=== PATIENT | male | born 1960 | race Caucasian/White ===

== ENCOUNTER 2020-01-06 16:31 | Inpatient (IN) | payer OTHER ==
[2020-01-06 16:50] VITALS: BMI 30.5
--- NOTE | 2020-01-06 16:54 | PDOC ---
History of Present Illness - General Chief Complaint: Altered Mental Status Stated Complaint: OVERDOSE Time Seen by Provider: 01/06/20 16:53 - History of Present Illness Initial Comments: HPI Pt is a 59yo M with PMH DM, COPD, Neuropathy (on chronic narcotics and gabapentin), CHF, hx of prior intubations, who presents with altered mental status. One hour IMPORT SPECIALIST by EMS, he was in his usual state of health according to his family. He was given 2.4mg narcan by EMS with improved arousal. Otherwise unable to obtain history given patients mental status. Review of Systems - unable to obtain Physical Exam General: arousable, well developed, well nourished Head: normocephalic, atraumatic Eyes: pupils constricted, anicteric sclera, conjunctiva clear ENT: oropharynx clear without exudates, moist mucous membranes Neck: supple, normal ROM Lung: Diffuse crackles b/l Heart: tachycardic, normal S1, S2, no murmurs appreciated Abdomen: soft, non tender, normoactive bowel sounds Extremities: no edema, no erythema or tenderness, DP/PT pulses 2+ and symmetric Neuro: moves all extremities Skin: warm, dry MDM Pt is a 59yo M with PMH DM, COPD, Neuropathy (on chronic narcotics and gabapentin), CHF, hx of prior intubations, who presents with altered mental status. Vitals significant for tachycardia and febrile. DDx including but not limited to: sepsis, acute on chronic respiratory failure, AMS secondary to medication OD Workup: labs (sepsis order set), ammonia, cxr, ekg, CT head and chest TX: Vanc/Zosyn, duoneb EKG: Afib with RVR, HR 106bpm, QRS 82ms, QTc 403ms Given patient's somnolence - given additional 2mg Narcan per attending Labs: leukocytosis (35.2), anemia, hyperkalemia, hypercapnia, trop 0.06, ammonia 50 (previous 60) Pt placed on BiPAP due to hypercapnia UA: -LE, -nitrite; no proteinuria, glucosuria pending head and chest CT pending abg, utox, salicylate/tylenol levels pending admission for sepsis, acute respiratory failure, AMS patient signed out to night team Past History - Medical History Allergies/Adverse Reactions: Allergies Allergy/AdvReac Type Severity Reaction Status Date / Time No Known Allergies Allergy Verified 01/06/20 16:47 Home Medications: Ambulatory Orders Morphine Sulfate [Morphine Sulfate ER] 30 mg PO BID 09/12/19 oxyCODONE HCL [Oxycodone HCl] 30 mg PO QID 09/12/19 Pregabalin 225 mg PO TID 01/07/20 COPD: Yes CHF: Yes HTN: Yes - Psycho-Social/Smoking History Smoking History: Unknown if ever smoked Have you smoked in the past 12 months: No If you are a former smoker, when did you quit?: was offered help last admission; refused *Physical Exam - Vital Signs Last Vital Signs Temp Pulse Resp BP Pulse Ox 103 H 38 H 120/76 99 01/06/20 16:47 01/06/20 16:47 01/06/20 16:47 01/06/20 16:47 ED Treatment Course - LABORATORY CBC & Chemistry Diagram: 01/07/20 06:05 01/07/20 06:05 Discharge - Discharge Information Problems reviewed: Yes Clinical Impression/Diagnosis: Altered mental status Qualifiers: Altered mental status type: unspecified Qualified Code(s): R41.82 - Altered mental status, unspecified Overdose Qualifiers: Encounter type: subsequent encounter Injury intent: undetermined intent Qualified Code(s): T50.904D - Poisoning by unspecified drugs, medicaments and biological substances, undetermined, subsequent encounter Respiratory failure Qualifiers: Chronicity: acute Respiratory failure complication: hypercapnia Qualified Code(s): J96.02 - Acute respiratory failure with hypercapnia - Follow up/Referral - Patient Discharge Instructions - Post Discharge Activity
[2020-01-06] MEDS ORDERED: PIPERACILLIN/TAZOB 3.375 GM 3.375 GM in DEXTROSE 5%-WATER - 50 ML IVPB ONE (16:58)
[2020-01-06] MEDS ORDERED: VANCOMYCIN 1 GM in D5W (PRE-DOCKED) 1,000 MG/250 ML IVPB ONE (17:12)
[2020-01-06] MEDS ORDERED: PIPERACILLIN/TAZOB 3.375 GM 3.375 GM/50 ML BAG IVPB ONE (17:23)
[2020-01-06] MEDS ORDERED: VANCOMYCIN 1 GRAM (PRE-DOCKED) 1,000 MG/250 ML BAG IVPB ONE (17:23)
[2020-01-06 17:28] LABS: BASO % 0.1 % (0-2.0); HEMATOCRIT 37.4 % (35.4-49); LYMPH % 3.5 % (8-40); MCH 22.6 pg (25.7-33.7); MCHC 29.5 g/dl (32.0-35.9); MEAN CELL VOLUME 76.8 fl (80-96); MEAN PLT VOLUME 7.8 fl (7.5-11.1); MONO % 6.3 % (3.8-10.2); NEUT % 90.1 % (42.8-82.8); PLATELET COUNT 243 K/MM3 (134-434); RBC 4.87 M/mm3 (4.00-5.60); RDW 19.8 % (11.9-15.9)
[2020-01-06 17:35] LABS: WHITE BLOOD COUNT 35.2 K/mm3 (4.0-10.0)
[2020-01-06 17:40] LABS: INR 1.1 (0.83-1.09)
[2020-01-06 17:41] LABS: VENOUS BASE EXCESS 11.7 mmol/L (-2-2); VENOUS O2 SATURATION 79.4 % (70-80); VENOUS PH 7.312 (7.310-7.410)
[2020-01-06 17:42] LABS: ACTIVATED PTT 28.6 SECONDS (25.2-36.5)
[2020-01-06 17:44] LABS: VENOUS PCO2 83.6 mmHg (38-52)
[2020-01-06] MEDS ORDERED: NALOXONE HCL 0.4 MG/ML VIAL ONE ×3 (17:51→18:02)
[2020-01-06] MEDS ORDERED: NALOXONE HCL 0.4 MG/ML VIAL IVPUSH ONE ×2 (17:56→18:04)
[2020-01-06 18:06] LABS: ALBUMIN 2.4 g/dl (3.4-5.0); BILIRUBIN,TOTAL 0.4 mg/dL (0.2-1); BLOOD UREA NITROGEN 17.8 mg/dL (7-18); CALCIUM 8.3 mg/dL (8.5-10.1); CREATININE 0.8 mg/dL (0.55-1.3); POTASSIUM 5.3 mmol/L (3.5-5.1); TOT PROT 6.2 g/dl (6.4-8.2)
[2020-01-06 18:20] LABS: ANISOCYTOSIS 3+; MACROCYTOSIS 0; PLATELET ESTIMATE NORMAL; TARGET CELLS 1+
[2020-01-06 18:57] LABS: URINE APPEARANCE CLEAR; URINE BILIRUBIN NEGATIVE (NEGATIVE); URINE COLOR YELLOW; URINE GLUCOSE (UA) NEGATIVE (NEGATIVE); URINE KETONE NEGATIVE (NEGATIVE); URINE LEUK ESTERASE NEGATIVE (NEGATIVE); URINE NITRITE NEGATIVE (NEGATIVE); URINE PROTEIN NEGATIVE (NEGATIVE)
[2020-01-06] MEDS ORDERED: ALBUTEROL SO4 2.5/IPRATROPIUM 0.5 INH SOL 3 ML VIAL.NEB. NEB ONE ×3 (19:18→20:57)
[2020-01-06] MEDS: ALBUTEROL SO4 2.5/IPRATROPIUM 0.5 INH SOL 3 ML VIAL.NEB. NEB SCH ×2 (19:46→21:00)
--- NOTE | 2020-01-06 19:50 | PN ---
Teaching Attending Note Name of Resident: Vanessa Jones ATTENDING PHYSICIAN STATEMENT I saw and evaluated the patient. I reviewed the resident's note and discussed the case with the resident. I agree with the resident's findings and plan as documented. SUBJECTIVE: Patient is a 59 year old man with a PMH of NIDDM, HLD, BPH, Anxiety, Tobacco use, COPD (on 2-4L O2 at home), Chronic pain due to neuropathy (on chronic narcotics and Gabapentin), CHF, and Prior intubations who presents with altered mental status. One hour prior to arrival by EMS, he was in his usual state of health according to his family. Found altered in bed by EMS with pin point pupils. Given 4.2 Narcan by EMS with awakening of patient. Otherwise unable to obtain history given patients mental status. On arrival in the ER respirations were shallow but unlabored. Patient was arousable to noxious stimuli with no signs of trauma. He was place on BiPAP. No reported history of chest pain, abdominal pain, fever, chills, vomiting, diarrhea, dysuria, melena, hematochezia or hematuria. No reported history of alcohol use. No reported sick contacts or recent travels. Family history is unremarkable. OBJECTIVE: Somnolent but arousable Vital Signs Period Temp Pulse Resp BP Sys/Nichols Pulse Ox Last 24 Hr 100.7 F-100.7 F 84-110 20-38 112-153/61-95 99-100 HEENT: No Jaundice, eye redness or discharge, PERRLA, EOMI. Normocephalic, atraumatic. External ears are normal and hearing is grossly intact. No nasal discharge. Neck: Supple, nontender. No palpable adenopathy or thyromegaly. No JVD Chest: Good effort. Clear to auscultation and percussion. Heart: Regular. No S3, rub or murmur Abdomen: Not distended, soft, nontender and no HSM. No rebound or guarding. Normal bowel sounds. Ext: Peripheral pulses intact. No leg edema. Skin: Warm and dry. No petechiae, rash or ecchymosis. Neuro: Somnolent but readily arousable. Oriented to person and place. CN 2-12 grossly intact. Sensation grossly intact in all four extremities and DTR are symmetric. Psych: Appropriate mood and affect. Good insight. Home Medications Medication Instructions Recorded Morphine Sulfate [Morphine Sulfate 30 mg PO BID 09/12/19 ER] oxyCODONE HCL [Oxycodone HCl] 30 mg PO QID 09/12/19 Amoxicillin/Potassium Clav 1 each PO BID #9 tablet 09/30/19 [Augmentin 875-125 Tablet] Tamsulosin HCl [Flomax] 0.4 mg PO DAILY #30 cap.er.24h 09/30/19 Abnormal Lab Results 01/06/20 01/06/20 01/06/20 16:40 16:40 16:40 WBC 35.2 H* Hgb 11.0 L MCV 76.8 L MCH 22.6 L MCHC 29.5 L RDW 19.8 H Absolute Neuts (auto) 31.7 H Neutrophils % 90.1 H Neutrophils % (Manual) 89.2 H Lymphocytes % 3.5 L D Lymphocytes % (Manual) 4.9 L D INR 1.10 H POC VBG pCO2 POC VBG pO2 VBG HCO3 VBG Base Excess Potassium 5.3 H Chloride 95 L Carbon Dioxide 38 H Anion Gap 3 L Random Glucose 125 H Calcium 8.3 L ALT 11 L Ammonia Troponin I 0.06 H Total Protein 6.2 L Albumin 2.4 L Salicylates Opiates Screen U Marijuana (THC) Screen 01/06/20 01/06/20 01/06/20 17:03 17:03 18:58 WBC Hgb MCV MCH MCHC RDW Absolute Neuts (auto) Neutrophils % Neutrophils % (Manual) Lymphocytes % Lymphocytes % (Manual) INR POC VBG pCO2 83.6 H* POC VBG pO2 49.6 H VBG HCO3 41.3 H VBG Base Excess 11.7 H Potassium Chloride Carbon Dioxide Anion Gap Random Glucose Calcium ALT Ammonia 50.10 H Troponin I Total Protein Albumin Salicylates 1.9 L Opiates Screen U Marijuana (THC) Screen 01/06/20 19:39 WBC Hgb MCV MCH MCHC RDW Absolute Neuts (auto) Neutrophils % Neutrophils % (Manual) Lymphocytes % Lymphocytes % (Manual) INR POC VBG pCO2 POC VBG pO2 VBG HCO3 VBG Base Excess Potassium Chloride Carbon Dioxide Anion Gap Random Glucose Calcium ALT Ammonia Troponin I Total Protein Albumin Salicylates Opiates Screen Positive A* U Marijuana (THC) Screen Positive A* Current Medications Generic Name Dose Route Start Last Admin Trade Name Freq PRN Reason Stop Dose Admin Enoxaparin Sodium 40 mg 01/07/20 10:00 Lovenox - SQ DAILY FLAKITA Piperacillin Sod/Tazobactam 50 mls @ 100 mls/hr 01/06/20 23:00 01/07/20 00:37 Sod 3.375 gm/ Dextrose IVPB 100 mls/hr Q6H FLAKITA Administration Protocol Vancomycin HCl 1,000 mg 01/07/20 18:00 Vancomycin (Pre-Docked) IVPB DAILY FLAKITA Protocol ASSESSMENT AND PLAN: 1. AMS due to Opiate overdose/Sepsis due to pneumonia/Acute hypercapnic respiratory failure - Urine toxicology shows opiates and marijuana. He was also admitted twice in September this year for ?"accidental opiate overdose". CXR shows bilateral interstitial and airspace opacities/pneumonic infiltrates. Offical report of chest CT and head CT scan pending. Sepsis workup done and patient on BiPAP being treated with IV Vancomycin, IV Zosyn, Duoneb and Narcan. Will monitor on telemetry, consult ID and Pulmonary. EKG shows Afib at 106/minute, IRBBB and QTc [address]-T wave changes. Initial troponin is 0.06 - likely due to demand ischemia. Will trend troponin and repeat EKG to rule out ACS. No prior EKG showing Afib. Mild hyperkalemia may be due to leukocytosis - will repeat BMP. Has chronic NH3 elevation - will monitor for now and treat if indicated. Viral testing for COVID-19 ordered and patient placed on airborne, droplet and contact isolation. Will continue comprehensive care for all of patients comorbid conditions. 2. Hypoalbuminemia - Possibly due to combined effects of malnutrition and inflammation associated with comorbid conditions. Will ensure adequate dietary protein intake and also consult rewards consultant. 3. DM For now, we will hold the home diabetes drugs and implement sliding scale insulin regimen. Provide comprehensive diabetes care with patient teaching and counseling about the importance of adherence to prescribed diabetes regimen, euglycemia, eye care and foot care. 4. Tobacco Use Counseled on risks associated with tobacco use. We will provide patient all the necessary assistance to facilitate smoking cessation and prescribe Nicotine patch. 5. DVT prophylaxis - Lovenox 40 mg SQ q 24 hours. 6. Advance directives - Full code
[2020-01-06 20:13] LABS: COCAINE, UR NEGATIVE ng/ml (CUTOFF=300); PHENCYCLIDINE,URINE NEGATIVE ng/ml (CUTOFF=25); URINE AMPHETAMINES NEGATIVE ng/ml (CUTOFF=500); URINE BARBITURATES NEGATIVE ng/ml (CUTOFF=200); URINE BENZODIAZEPINES NEGATIVE ng/ml (CUTOFF=200)
[2020-01-06 20:25] LABS: METHADONE, UR NEGATIVE ng/ml (CUTOFF=300)
[2020-01-06 20:27] LABS: OPIATES, URI POSITIVE ng/ml (CUTOFF=300)
--- NOTE | 2020-01-06 21:33 | HP ---
CHIEF COMPLAINT: AMS PCP: Dr. Kearney (affiliated with [facility]) HISTORY OF PRESENT ILLNESS: 59y.o. M PMH DM, COPD on 4L home O2, CHF (grade II diastolic dysfunction, EF55%), polysubstance abuse (opioids, oxy, MJ, cocaine), recent admission 09/2019 for opioid overdose where he was intubated with ICU stay, presenting with altered mental status. No history was able to be obtained from the patient. As per EMS patient was found by his family. En route received 2.4mg narcan with mildly improved responsiveness. In ED patient received 2 x doses narcan IV (0.8mg, 1,2 mg). Unable to obtain further history due to patient somnolence, however, patient is arousable to noxious stimuli. ER course was notable for: (1) Narcan x 2 (2) vanc, zosyn (3) U-tox + opiates, marijuana (4) EKG: A-fib w/ RVR rat 106bpm. No ST-T changes. qtc 403 Recent Travel: unable to obtain PAST MEDICAL HISTORY: as per hpi PAST SURGICAL HISTORY: Social History: Smoking: + marijuana Alcohol: unknown Drugs: opioids Allergies No Known Allergies Allergy (Verified 01/06/20 16:47) HOME MEDICATIONS: Home Medications Medication Instructions Recorded Morphine Sulfate [Morphine Sulfate 30 mg PO BID 09/12/19 ER] oxyCODONE HCL [Oxycodone HCl] 30 mg PO QID 09/12/19 Amoxicillin/Potassium Clav 1 each PO BID #9 tablet 09/30/19 [Augmentin 875-125 Tablet] Tamsulosin HCl [Flomax] 0.4 mg PO DAILY #30 cap.er.24h 09/30/19 REVIEW OF SYSTEMS unable to assess PHYSICAL EXAMINATION Vital Signs - 24 hr 01/06/20 01/06/20 01/06/20 16:47 16:56 17:01 Temperature 100.7 F H 100.7 F H 100.7 F H Pulse Rate 103 H 109 H Pulse Rate [ 110 H Radial] Respiratory 26 H 25 H 26 H Rate Blood Pressure 120/76 Blood Pressure 120/95 [Left Arm] O2 Sat by Pulse 100 100 99 Oximetry (%) 01/06/20 01/06/20 01/06/20 18:09 18:10 20:07 Temperature Pulse Rate Pulse Rate [ 98 H 84 Radial] Respiratory 20 20 Rate Blood Pressure Blood Pressure 153/78 112/61 [Left Arm] O2 Sat by Pulse 100 100 100 Oximetry (%) GENERAL: Arousable to noxious stimuli. HEENT: Pupils pinpoint LUNGS: Breath sounds equal, clear to auscultation bilaterally. No wheezes, and no crackles. No accessory muscle use. HEART: Regular rate and rhythm, normal S1 and S2 without murmurs ABDOMEN: Soft, nontender, not distended, normoactive bowel sounds EXTREMITIES: No peripheral edema. NEUROLOGICAL: unable to assess PSYCHIATRIC: unable to assess SKIN: Track fonseca/ excoriations L hand and arm. Laboratory Results - last 24 hr 01/06/20 01/06/20 01/06/20 16:40 16:40 16:40 WBC 35.2 H* RBC 4.87 Hgb 11.0 L Hct 37.4 MCV 76.8 L MCH 22.6 L MCHC 29.5 L RDW 19.8 H Plt Count 243 MPV 7.8 Absolute Neuts (auto) 31.7 H Neutrophils % 90.1 H Neutrophils % (Manual) 89.2 H Band Neutrophils % 1.0 Lymphocytes % 3.5 L D Lymphocytes % (Manual) 4.9 L D Monocytes % 6.3 D Monocytes % (Manual) 4 Eosinophils % 0.0 D Eosinophils % (Manual) 0.0 Basophils % 0.1 Basophils % (Manual) 0.0 Myelocytes % (Man) 0 D Promyelocytes % (Man) 0 Blast Cells % (Manual) 0 Nucleated RBC % 0 Metamyelocytes 0 Hypochromia 1+ Platelet Estimate Normal Polychromasia 1+ Poikilocytosis 2+ Anisocytosis 3+ Microcytosis 3+ Macrocytosis 0 Target Cells 1+ PT with INR 13.00 INR 1.10 H PTT (Actin FS) 28.6 VBG pH POC VBG pCO2 POC VBG pO2 VBG HCO3 VBG O2 Sat (Mirta) VBG Base Excess Sodium 137 Potassium 5.3 H Chloride 95 L Carbon Dioxide 38 H Anion Gap 3 L BUN 17.8 Creatinine 0.8 Est GFR (CKD-EPI)AfAm 111.74 Est GFR (CKD-EPI)NonAf 96.41 Random Glucose 125 H Lactic Acid Calcium 8.3 L Total Bilirubin 0.4 AST 23 ALT 11 L Alkaline Phosphatase 60 Ammonia Troponin I 0.06 H Total Protein 6.2 L Albumin 2.4 L Urine Color Urine Appearance Urine pH Ur Specific [place] Urine Protein Urine Glucose (UA) Urine Ketones Urine Blood Urine Nitrite Urine Bilirubin Urine Urobilinogen Ur Leukocyte Esterase Salicylates Opiates Screen Methadone Screen Acetaminophen Barbiturate Screen Phencyclidine Screen Ur Amphetamines Screen MDMA (Ecstasy) Screen Benzodiazepines Screen Cocaine Screen U Marijuana (THC) Screen 01/06/20 01/06/20 01/06/20 16:40 17:03 17:03 WBC RBC Hgb Hct MCV MCH MCHC RDW Plt Count MPV Absolute Neuts (auto) Neutrophils % Neutrophils % (Manual) Band Neutrophils % Lymphocytes % Lymphocytes % (Manual) Monocytes % Monocytes % (Manual) Eosinophils % Eosinophils % (Manual) Basophils % Basophils % (Manual) Myelocytes % (Man) Promyelocytes % (Man) Blast Cells % (Manual) Nucleated RBC % Metamyelocytes Hypochromia Platelet Estimate Polychromasia Poikilocytosis Anisocytosis Microcytosis Macrocytosis Target Cells PT with INR INR PTT (Actin FS) VBG pH 7.312 POC VBG pCO2 83.6 H* POC VBG pO2 49.6 H VBG HCO3 41.3 H VBG O2 Sat (Mirta) 79.4 VBG Base Excess 11.7 H Sodium Potassium Chloride Carbon Dioxide Anion Gap BUN Creatinine Est GFR (CKD-EPI)AfAm Est GFR (CKD-EPI)NonAf Random Glucose Lactic Acid 1.3 Calcium Total Bilirubin AST ALT Alkaline Phosphatase Ammonia 50.10 H Troponin I Total Protein Albumin Urine Color Urine Appearance Urine pH Ur Specific [place] Urine Protein Urine Glucose (UA) Urine Ketones Urine Blood Urine Nitrite Urine Bilirubin Urine Urobilinogen Ur Leukocyte Esterase Salicylates Opiates Screen Methadone Screen Acetaminophen Barbiturate Screen Phencyclidine Screen Ur Amphetamines Screen MDMA (Ecstasy) Screen Benzodiazepines Screen Cocaine Screen U Marijuana (THC) Screen 01/06/20 01/06/20 01/06/20 18:30 18:58 19:39 WBC RBC Hgb Hct MCV MCH MCHC RDW Plt Count MPV Absolute Neuts (auto) Neutrophils % Neutrophils % (Manual) Band Neutrophils % Lymphocytes % Lymphocytes % (Manual) Monocytes % Monocytes % (Manual) Eosinophils % Eosinophils % (Manual) Basophils % Basophils % (Manual) Myelocytes % (Man) Promyelocytes % (Man) Blast Cells % (Manual) Nucleated RBC % Metamyelocytes Hypochromia Platelet Estimate Polychromasia Poikilocytosis Anisocytosis Microcytosis Macrocytosis Target Cells PT with INR INR PTT (Actin FS) VBG pH POC VBG pCO2 POC VBG pO2 VBG HCO3 VBG O2 Sat (Mirta) VBG Base Excess Sodium Potassium Chloride Carbon Dioxide Anion Gap BUN Creatinine Est GFR (CKD-EPI)AfAm Est GFR (CKD-EPI)NonAf Random Glucose Lactic Acid Calcium Total Bilirubin AST ALT Alkaline Phosphatase Ammonia Troponin I Total Protein Albumin Urine Color Yellow Urine Appearance Clear Urine pH 7.0 D Ur Specific [place] 1.012 Urine Protein Negative Urine Glucose (UA) Negative Urine Ketones Negative Urine Blood Negative Urine Nitrite Negative Urine Bilirubin Negative Urine Urobilinogen 1.0 Ur Leukocyte Esterase Negative Salicylates 1.9 L Opiates Screen Positive A* Methadone Screen Negative Acetaminophen < 2.0 Barbiturate Screen Negative Phencyclidine Screen Negative Ur Amphetamines Screen Negative MDMA (Ecstasy) Screen Negative Benzodiazepines Screen Negative Cocaine Screen Negative U Marijuana (THC) Screen Positive A* ASSESSMENT/PLAN: 59y.o. M PMH DM, COPD on 4L home O2, CHF (grade II diastolic dysfunction, EF55%), polysubstance abuse (opioids, oxy, MJ, cocaine) presenting with altered mental status. #AMS 2/2 Opioid overdose #Acute hypercapnic resp failure -Utox + for opiates -improved s/p narcan; continue narcan PRN -continue neuro checks -O2 supplementation; NIPPV BIPAP; vbg done in ED showing hypercapnia -monitor EKG; no hx of a-fib but seen on 1st EKG, f/u 2nd -trop 0.06, repeat downtrended 0.05 #Leukocytosis -f/u COVID-19 PCR -s/p- vanc & zosyn administered in ED; continue -f/u AM CBC -f/u blood & urine cultures -CT chest showing no infiltrative or congestive changes. (although + lymphadenopathy) #DM -hold home oral meds -ISS, BGMs ACHS #Diastolic CHF -echo done 09/2019 -f/u with outpatient cardiology on discharge -seen by cardio during visit 09/2019, recommended stress MIBI @ that time #FEN -no standing fluids -trend & replete lytes as needed -NPO while on BIPAP; then Na controlled, diabetic diet #Dispo admit to telemetry Family Medical History Family History: Unable to Obtain Visit type - Emergency Visit Emergency Visit: Yes ED Registration Date: 01/06/20 Care time: The patient presented to the Emergency Department on the above date and was hospitalized for further evaluation of their emergent condition. - New Patient This patient is new to me today: Yes Date on this admission: 01/08/20 - Critical Care Critical Care patient: No ATTENDING PHYSICIAN STATEMENT I saw and evaluated the patient. I reviewed the resident's note and discussed the case with the resident. I agree with the resident's findings and plan as documented. SUBJECTIVE: OBJECTIVE: ASSESSMENT AND PLAN:
--- NOTE | 2020-01-06 23:25 | PDOC ---
Documentation entered by Raya Conn SCRIBE, acting as scribe for Claus Ghotra DO. Claus Ghotra DO: This documentation has been prepared by the Fabien fragoso Brenda, SCRIBE, under my direction and personally reviewed by me in its entirety. I confirm that the documentation accurately reflects all work, treatment, procedures, and medical decision making performed by me. Attending Attestation - Resident Resident Name: Mary Ann Lehman - ED Attending Attestation I have performed the following: I have examined & evaluated the patient, The case was reviewed & discussed with the resident, I agree w/resident's findings & plan, Exceptions are as noted - HPI HPI: 01/06/20 17:15 The patient is a 59 year old male with a significant PMH of COPD (2-4 L), CHF, chronic pain who presents to the emergency department for evaluation of altered mental status. Found altered in bed by EMS with pin point pupils. Given 2mg narcan by EMS with awakening of patient. No falls or trauma. History is limited as he is hypersomulent. Has had similar narcotic od in past and has been intubated. Allergies: NKA PCP: Christel 01/15/20 17:26 - Physicial Exam PE: 01/06/20 18:37 Respirations are shallow but unlabored. Pt is arousable to noxious stimuli. No signs of gross trauma, making purposeful movements, able to scratch own genitalia. Appears comfortable given shallow breaths. - Critical Care Time Total Critical Care Time: 35 Critical Care Statement: The care of this patient involved high complexity decision making to prevent further life threatening deterioration of the patient's condition and/or to evaluate & treat vital organ system(s) failure or risk of failure. - Medical Decision Making 01/06/20 18:37 59 year old male with chronic respiratory failure here today for AMS likely secondary to unintentional narcotic overdose. Plan is to test for Tylenol and salicylate levels. Frequent reassessment due to respiratory failure. High risk intubation. Initial BVG shows respiratory acidosis with PcO2 of 83. Close to baseline for chronic respiratory failure. Additional Narcan as needed. Labs, CT Head. Will trial on Bipap to see if AMS improves. Treat for COPD. Likely admission. Pt improved with BIPAP and intermittent Narcan, at baseline mental status, repeat vbg shows improved pco2 on bipap. Likely pt w/ chronic resp failure with acute exacerbation 2/2 opiate od and hypercapnic resp failure. Admitted to [facility] on bipap. Guarded condition 01/15/20 17:27 Heart Score/ECG Review - ECG Impressions Comment:: 01/06/20 18:37 Atrial fibriliation Vent rate 106 Normal axis Normal intervals No acute ischemia Incomplete right bundle pattern Time: 1846 Discharge - Discharge Information Problems reviewed: Yes Clinical Impression/Diagnosis: Altered mental status Qualifiers: Altered mental status type: unspecified Qualified Code(s): R41.82 - Altered mental status, unspecified Overdose Qualifiers: Encounter type: subsequent encounter Injury intent: undetermined intent Qualified Code(s): T50.904D - Poisoning by unspecified drugs, medicaments and biological substances, undetermined, subsequent encounter Respiratory failure Qualifiers: Chronicity: acute Respiratory failure complication: hypercapnia Qualified Code(s): J96.02 - Acute respiratory failure with hypercapnia Condition: Stable Disposition: AGAINST MEDICAL ADVICE - Follow up/Referral - Patient Discharge Instructions - Post Discharge Activity
[2020-01-07] MEDS ORDERED: DEXTROSE 5%-WATER - 50 ML IVPB ONE ×5 (00:32→22:21)
[2020-01-07] MEDS ORDERED: PIPERACILLIN/TAZOBACTAM 3.375 GM VIAL IVPB ONE ×5 (00:32→22:21)
[2020-01-07] MEDS: PIPERACILLIN/TAZOB 3.375 GM 3.375 GM in DEXTROSE 5%-WATER - 50 ML IVPB SCH ×5 (00:37→23:00)
[2020-01-07 06:17] LABS: ARTERIAL BLD GAS O2 SATURATION 99.3 mmHg (95-98); ARTERIAL BLOOD GAS BASE EXCESS 10.2 mmol/L (-2-2); ARTERIAL BLOOD GAS PO2 220.2 mmHg (80-100); ARTERIAL BLOOD GAS pH 7.289 (7.350-7.450)
[2020-01-07 06:47] LABS: ALLENS TEST POSITIVE
[2020-01-07 06:48] LABS: VENT RATE 16
[2020-01-07 08:19] LABS: BASO % 0.1 % (0-2.0); HEMATOCRIT 35.1 % (35.4-49); HEMOGLOBIN 10.4 GM/dL (11.7-16.9); LYMPH % 7.4 % (8-40); MCH 23.1 pg (25.7-33.7); MCHC 29.6 g/dl (32.0-35.9); MEAN CELL VOLUME 77.9 fl (80-96); MEAN PLT VOLUME 8.1 fl (7.5-11.1); MONO % 7.8 % (3.8-10.2); NEUT % 84.7 % (42.8-82.8); PLATELET COUNT 217 K/MM3 (134-434); RBC 4.51 M/mm3 (4.00-5.60); RDW 19.1 % (11.9-15.9); WHITE BLOOD COUNT 20.4 K/mm3 (4.0-10.0)
[2020-01-07 08:29] LABS: ALBUMIN 2.1 g/dl (3.4-5.0); BILIRUBIN,TOTAL 0.4 mg/dL (0.2-1); BLOOD UREA NITROGEN 19.4 mg/dL (7-18); CALCIUM 8.4 mg/dL (8.5-10.1); CREATININE 0.6 mg/dL (0.55-1.3); MAGNESIUM 2.1 mg/dL (1.8-2.4); PHOSPHOROUS 4.2 mg/dL (2.5-4.9); POTASSIUM 4.6 mmol/L (3.5-5.1); TOT PROT 5.6 g/dl (6.4-8.2)
[2020-01-07] MEDS ORDERED: NALOXONE HCL 0.4 MG/ML VIAL IVPUSH ONE (09:00)
[2020-01-07 10:03] LABS: ANISOCYTOSIS 1+; MACROCYTOSIS 0; PLATELET ESTIMATE NORMAL
[2020-01-07] MEDS: ENOXAPARIN NA (PORCINE) 40 MG/0.4 ML DISP.SYRIN SQ SCH (10:18)
--- NOTE | 2020-01-07 10:19 | EKG ---
Test Reason : Blood Pressure : / mmHG Vent. Rate : 106 BPM Atrial Rate : 110 BPM P-R Int : 000 ms QRS Dur : 082 ms QT Int : 304 ms P-R-T Axes : 000 085 020 degrees QTc Int : 403 ms POOR DATA QUALITY, INTERPRETATION MAY BE ADVERSELY AFFECTED ATRIAL FIBRILLATION WITH RAPID VENTRICULAR RESPONSE SEPTAL INFARCT (CITED ON OR BEFORE 22-SEP-2019) ABNORMAL ECG WHEN COMPARED WITH ECG OF 22-SEP-2019 18:08, ATRIAL FIBRILLATION HAS REPLACED SINUS RHYTHM VENT. RATE HAS INCREASED BY 40 BPM INCOMPLETE RIGHT BUNDLE BRANCH BLOCK IS NO LONGER PRESENT Confirmed by XAVI FRIEND MD ([id number]) on 01/07/2020 10:19:08 AM Referred By: Confirmed By:XAVI FRIEND MD
--- NOTE | 2020-01-07 12:58 | PN ---
Physical Exam: SUBJECTIVE: Patient seen and examined at bedside, admitted for acute hypercapneic respiratory failure 2/2 Percocet OD, received Narcan w/ improvement of respiratory status, ABG showing severe hypercapnea but patient compensating, will cont. to monitor. Patient however seems to be refusing inpatient care insistent on going home, possibly will leave AMA. OBJECTIVE: GA AAox3, speaking in full sentences, Calm, no increase WOB HEENT NC/AT, EOMI, neck supple, dry MM, NC O2 4L attached (saturating 92%) Chest distant BS b/l, expiratory wheezing++, no accessory M use CVS s1, S2+, RRR Abd obese, Soft, NT, ND Ext minimal edema LE b/l, no calf tenderness Laboratory Results - last 24 hr 01/06/20 01/06/20 01/06/20 16:40 16:40 16:40 WBC 35.2 H* RBC 4.87 Hgb 11.0 L Hct 37.4 MCV 76.8 L MCH 22.6 L MCHC 29.5 L RDW 19.8 H Plt Count 243 MPV 7.8 Absolute Neuts (auto) 31.7 H Neutrophils % 90.1 H Neutrophils % (Manual) 89.2 H Band Neutrophils % 1.0 Lymphocytes % 3.5 L D Lymphocytes % (Manual) 4.9 L D Monocytes % 6.3 D Monocytes % (Manual) 4 Eosinophils % 0.0 D Eosinophils % (Manual) 0.0 Basophils % 0.1 Basophils % (Manual) 0.0 Myelocytes % (Man) 0 D Promyelocytes % (Man) 0 Blast Cells % (Manual) 0 Nucleated RBC % 0 Metamyelocytes 0 Hypochromia 1+ Platelet Estimate Normal Polychromasia 1+ Poikilocytosis 2+ Anisocytosis 3+ Microcytosis 3+ Macrocytosis 0 Target Cells 1+ PT with INR 13.00 INR 1.10 H PTT (Actin FS) 28.6 Anticoagulation Therapy Puncture Site Patient Temperature ABG pH ABG pCO2 ABG pO2 ABG HCO3 ABG O2 Sat (Measured) ABG O2 Content ABG Base Excess Emmanuel Test VBG pH POC VBG pCO2 POC VBG pO2 VBG HCO3 VBG O2 Sat (Mirta) VBG Base Excess Patient On Oxygen O2 Delivery Device Oxygen Flow Rate Vent Mode Vent Rate Mechanical Rate PEEP Pressure Support Vent Sodium 137 Potassium 5.3 H Chloride 95 L Carbon Dioxide 38 H Anion Gap 3 L BUN 17.8 Creatinine 0.8 Est GFR (CKD-EPI)AfAm 111.74 Est GFR (CKD-EPI)NonAf 96.41 Random Glucose 125 H Lactic Acid Calcium 8.3 L Phosphorus Magnesium Total Bilirubin 0.4 AST 23 ALT 11 L Alkaline Phosphatase 60 Ammonia Troponin I 0.06 H Total Protein 6.2 L Albumin 2.4 L Urine Color Urine Appearance Urine pH Ur Specific [place] Urine Protein Urine Glucose (UA) Urine Ketones Urine Blood Urine Nitrite Urine Bilirubin Urine Urobilinogen Ur Leukocyte Esterase Salicylates Opiates Screen Methadone Screen Acetaminophen Barbiturate Screen Phencyclidine Screen Ur Amphetamines Screen MDMA (Ecstasy) Screen Benzodiazepines Screen Cocaine Screen U Marijuana (THC) Screen 01/06/20 01/06/20 01/06/20 16:40 17:03 17:03 WBC RBC Hgb Hct MCV MCH MCHC RDW Plt Count MPV Absolute Neuts (auto) Neutrophils % Neutrophils % (Manual) Band Neutrophils % Lymphocytes % Lymphocytes % (Manual) Monocytes % Monocytes % (Manual) Eosinophils % Eosinophils % (Manual) Basophils % Basophils % (Manual) Myelocytes % (Man) Promyelocytes % (Man) Blast Cells % (Manual) Nucleated RBC % Metamyelocytes Hypochromia Platelet Estimate Polychromasia Poikilocytosis Anisocytosis Microcytosis Macrocytosis Target Cells PT with INR INR PTT (Actin FS) Anticoagulation Therapy Puncture Site Patient Temperature ABG pH ABG pCO2 ABG pO2 ABG HCO3 ABG O2 Sat (Measured) ABG O2 Content ABG Base Excess Emmanuel Test VBG pH 7.312 POC VBG pCO2 83.6 H* POC VBG pO2 49.6 H VBG HCO3 41.3 H VBG O2 Sat (Mirta) 79.4 VBG Base Excess 11.7 H Patient On Oxygen O2 Delivery Device Oxygen Flow Rate Vent Mode Vent Rate Mechanical Rate PEEP Pressure Support Vent Sodium Potassium Chloride Carbon Dioxide Anion Gap BUN Creatinine Est GFR (CKD-EPI)AfAm Est GFR (CKD-EPI)NonAf Random Glucose Lactic Acid 1.3 Calcium Phosphorus Magnesium Total Bilirubin AST ALT Alkaline Phosphatase Ammonia 50.10 H Troponin I Total Protein Albumin Urine Color Urine Appearance Urine pH Ur Specific [place] Urine Protein Urine Glucose (UA) Urine Ketones Urine Blood Urine Nitrite Urine Bilirubin Urine Urobilinogen Ur Leukocyte Esterase Salicylates Opiates Screen Methadone Screen Acetaminophen Barbiturate Screen Phencyclidine Screen Ur Amphetamines Screen MDMA (Ecstasy) Screen Benzodiazepines Screen Cocaine Screen U Marijuana (THC) Screen 01/06/20 01/06/20 01/06/20 18:30 18:58 19:39 WBC RBC Hgb Hct MCV MCH MCHC RDW Plt Count MPV Absolute Neuts (auto) Neutrophils % Neutrophils % (Manual) Band Neutrophils % Lymphocytes % Lymphocytes % (Manual) Monocytes % Monocytes % (Manual) Eosinophils % Eosinophils % (Manual) Basophils % Basophils % (Manual) Myelocytes % (Man) Promyelocytes % (Man) Blast Cells % (Manual) Nucleated RBC % Metamyelocytes Hypochromia Platelet Estimate Polychromasia Poikilocytosis Anisocytosis Microcytosis Macrocytosis Target Cells PT with INR INR PTT (Actin FS) Anticoagulation Therapy Puncture Site Patient Temperature ABG pH ABG pCO2 ABG pO2 ABG HCO3 ABG O2 Sat (Measured) ABG O2 Content ABG Base Excess Emmanuel Test VBG pH POC VBG pCO2 POC VBG pO2 VBG HCO3 VBG O2 Sat (Mirta) VBG Base Excess Patient On Oxygen O2 Delivery Device Oxygen Flow Rate Vent Mode Vent Rate Mechanical Rate PEEP Pressure Support Vent Sodium Potassium Chloride Carbon Dioxide Anion Gap BUN Creatinine Est GFR (CKD-EPI)AfAm Est GFR (CKD-EPI)NonAf Random Glucose Lactic Acid Calcium Phosphorus Magnesium Total Bilirubin AST ALT Alkaline Phosphatase Ammonia Troponin I Total Protein Albumin Urine Color Yellow Urine Appearance Clear Urine pH 7.0 D Ur Specific [place] 1.012 Urine Protein Negative Urine Glucose (UA) Negative Urine Ketones Negative Urine Blood Negative Urine Nitrite Negative Urine Bilirubin Negative Urine Urobilinogen 1.0 Ur Leukocyte Esterase Negative Salicylates 1.9 L Opiates Screen Positive A* Methadone Screen Negative Acetaminophen < 2.0 Barbiturate Screen Negative Phencyclidine Screen Negative Ur Amphetamines Screen Negative MDMA (Ecstasy) Screen Negative Benzodiazepines Screen Negative Cocaine Screen Negative U Marijuana (THC) Screen Positive A* 01/06/20 01/06/20 01/07/20 22:00 22:00 06:05 WBC 20.4 H RBC 4.51 Hgb 10.4 L Hct 35.1 L MCV 77.9 L MCH 23.1 L MCHC 29.6 L RDW 19.1 H Plt Count 217 MPV 8.1 Absolute Neuts (auto) 17.3 H Neutrophils % 84.7 H Neutrophils % (Manual) 85.4 H Band Neutrophils % 0.0 Lymphocytes % 7.4 L D Lymphocytes % (Manual) 4.9 L Monocytes % 7.8 Monocytes % (Manual) 9 D Eosinophils % 0.0 Eosinophils % (Manual) 0.0 Basophils % 0.1 Basophils % (Manual) 0.0 Myelocytes % (Man) 0 Promyelocytes % (Man) 0 Blast Cells % (Manual) 0 Nucleated RBC % 0 Metamyelocytes 0 Hypochromia 1+ Platelet Estimate Normal Polychromasia 1+ Poikilocytosis 0 Anisocytosis 1+ Microcytosis 1+ Macrocytosis 0 Target Cells PT with INR INR PTT (Actin FS) Anticoagulation Therapy Puncture Site Patient Temperature ABG pH ABG pCO2 ABG pO2 ABG HCO3 ABG O2 Sat (Measured) ABG O2 Content ABG Base Excess Emmanuel Test VBG pH POC VBG pCO2 POC VBG pO2 VBG HCO3 VBG O2 Sat (Mirta) VBG Base Excess Patient On Oxygen O2 Delivery Device Oxygen Flow Rate Vent Mode Vent Rate Mechanical Rate PEEP Pressure Support Vent Sodium Potassium Chloride Carbon Dioxide Anion Gap BUN Creatinine Est GFR (CKD-EPI)AfAm Est GFR (CKD-EPI)NonAf Random Glucose Lactic Acid 0.9 Calcium Phosphorus Magnesium Total Bilirubin AST ALT Alkaline Phosphatase Ammonia Troponin I 0.05 Total Protein Albumin Urine Color Urine Appearance Urine pH Ur Specific [place] Urine Protein Urine Glucose (UA) Urine Ketones Urine Blood Urine Nitrite Urine Bilirubin Urine Urobilinogen Ur Leukocyte Esterase Salicylates Opiates Screen Methadone Screen Acetaminophen Barbiturate Screen Phencyclidine Screen Ur Amphetamines Screen MDMA (Ecstasy) Screen Benzodiazepines Screen Cocaine Screen U Marijuana (THC) Screen 01/07/20 01/07/20 06:05 06:30 WBC RBC Hgb Hct MCV MCH MCHC RDW Plt Count MPV Absolute Neuts (auto) Neutrophils % Neutrophils % (Manual) Band Neutrophils % Lymphocytes % Lymphocytes % (Manual) Monocytes % Monocytes % (Manual) Eosinophils % Eosinophils % (Manual) Basophils % Basophils % (Manual) Myelocytes % (Man) Promyelocytes % (Man) Blast Cells % (Manual) Nucleated RBC % Metamyelocytes Hypochromia Platelet Estimate Polychromasia Poikilocytosis Anisocytosis Microcytosis Macrocytosis Target Cells PT with INR INR PTT (Actin FS) Anticoagulation Therapy No Result Required. Puncture Site Right brachial Patient Temperature No Result Required. ABG pH 7.289 L ABG pCO2 84.50 H* ABG pO2 220.2 H ABG HCO3 39.6 H ABG O2 Sat (Measured) 99.3 H ABG O2 Content No Result Required. ABG Base Excess 10.2 H Emmanuel Test Positive VBG pH POC VBG pCO2 POC VBG pO2 VBG HCO3 VBG O2 Sat (Mirta) VBG Base Excess Patient On Oxygen Yes O2 Delivery Device Bipap Oxygen Flow Rate 100% Vent Mode No Result Required. Vent Rate 16 Mechanical Rate No Result Required. PEEP No Result Required. Pressure Support Vent 12/5 Sodium 141 Potassium 4.6 Chloride 97 L Carbon Dioxide 44 H Anion Gap 1 L BUN 19.4 H Creatinine 0.6 Est GFR (CKD-EPI)AfAm 125.77 Est GFR (CKD-EPI)NonAf 108.52 Random Glucose 69 L Lactic Acid Calcium 8.4 L Phosphorus 4.2 Magnesium 2.1 Total Bilirubin 0.4 AST 9 L ALT 10 L Alkaline Phosphatase 57 Ammonia Troponin I Total Protein 5.6 L Albumin 2.1 L Urine Color Urine Appearance Urine pH Ur Specific [place] Urine Protein Urine Glucose (UA) Urine Ketones Urine Blood Urine Nitrite Urine Bilirubin Urine Urobilinogen Ur Leukocyte Esterase Salicylates Opiates Screen Methadone Screen Acetaminophen Barbiturate Screen Phencyclidine Screen Ur Amphetamines Screen MDMA (Ecstasy) Screen Benzodiazepines Screen Cocaine Screen U Marijuana (THC) Screen Active Medications Generic Name Dose Route Start Last Admin Trade Name Freq PRN Reason Stop Dose Admin Enoxaparin Sodium 40 mg 01/07/20 10:00 01/07/20 10:18 Lovenox - SQ 40 mg DAILY FLAKITA Administration Piperacillin Sod/Tazobactam 50 mls @ 100 mls/hr 01/06/20 23:00 01/07/20 10:18 Sod 3.375 gm/ Dextrose IVPB 100 mls/hr Q6H FLAKITA Administration Protocol Vancomycin HCl 1,000 mg 01/07/20 18:00 Vancomycin (Pre-Docked) IVPB DAILY FLAKITA Protocol ASSESSMENT/PLAN: 59 M Acute Hypercapneic Respiratory Failure COPD with acute exacerbation PSA with opioid dependence (Percocets, denies IVDA) HAP PNA Pulmonary HTN HTN HLD Plan: Cont. IV Zosyn, Vancomycin pending cultures Close watch to respiratory status, BiPAP PRN w/ monitoring of pCO2, cont. NC 4L otherwise to titrate sat 88-92% Cont. nebs PRN, start steroids for COPDE IV tylenol for pain DVT ppx: Heparin SC COVID pending Visit type - Emergency Visit Emergency Visit: Yes ED Registration Date: 01/06/20 Care time: The patient presented to the Emergency Department on the above date and was hospitalized for further evaluation of their emergent condition. - New Patient This patient is new to me today: Yes Date on this admission: 01/07/20 - Critical Care Critical Care patient: No - Discharge Referral Referred to [facility] Med P.C.: No
--- NOTE | 2020-01-07 13:31 | CON.PULM ---
Consult Consult Specialty:: PULMONARY Referred by:: Dr Pena Reason for Consultation:: abnormal ABG - History of Present Illness Chief Complaint: altered mental status History of Present Illness: 59yo male with h/o DM, hyperlipidemia, CHF, COPD, chronic hypoxic respiratory failure, opiate dependence/abuse, smoker who was admitted with altered mental status. Given narcan by EMS and ED with improvement. Noted to have acute on chronic respiratory acidosis on ABG. Currently awake, alert. Denies shortness of breath, cough or wheezing. No fevers, chills or sweats. CT chest showing new infiltrates in RML, RLL. He is a current 1 PPD smoker. 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 Cardio/Vascular: Yes: CHF, HTN, Hyperlipdemia Pulmonary: Yes: Other Psych: Yes: Anxiety - Past Surgical History Past Surgical History: Yes: None - Alcohol/Substance Use Hx Alcohol Use: No - Smoking History Smoking history: Unknown if ever smoked Have you smoked in the past 12 months: No If you are a former smoker, when did you quit?: was offered help last admission; refused - Social History Usual Living Arrangement: With Spouse Home Medications - Allergies Allergies/Adverse Reactions: Allergies Allergy/AdvReac Type Severity Reaction Status Date / Time No Known Allergies Allergy Verified 01/06/20 16:47 - Home Medications Home Medications: Ambulatory Orders Morphine Sulfate [Morphine Sulfate ER] 30 mg PO BID 09/12/19 oxyCODONE HCL [Oxycodone HCl] 30 mg PO QID 09/12/19 Amoxicillin/Potassium Clav [Augmentin 875-125 Tablet] 1 each PO BID #9 tablet 09/30/19 Tamsulosin HCl [Flomax] 0.4 mg PO DAILY #30 cap.er.24h 09/30/19 Review of Systems - Review of Systems Constitutional: denies: Chills, Fever, Weakness Eyes: denies: Recent Change in Vision HENT: denies: Nasal Congestion, Throat Pain Neck: denies: Stiffness, Tenderness Cardiovascular: denies: Chest Pain, Shortness of Breath Respiratory: denies: Cough, SOB, Wheezing Gastrointestinal: denies: Abdominal Pain, Nausea, Vomiting Genitourinary: denies: Dysuria, Hematuria Neurological: denies: Dizziness, Headache Physical Exam Vital Sings: Vital Signs Temperature 98.1 F 08/29/20 09:05 Pulse Rate 85 01/07/20 09:05 Respiratory Rate 20 01/07/20 09:05 Blood Pressure 107/59 L 01/07/20 09:05 O2 Sat by Pulse Oximetry (%) 95 01/07/20 12:46 Constitutional: Yes: Calm Eyes: Yes: Conjunctiva Clear, EOM Intact HENT: Yes: Atraumatic, Normocephalic Neck: Yes: Supple, Trachea Midline Cardiovascular: Yes: Regular Rate and Rhythm Respiratory: Yes: Rales ...Clubbing: No Gastrointestinal: Yes: Normal Bowel Sounds, Soft. No: Tenderness Edema: No Neurological: Yes: Alert, Oriented Labs: CBC, BMP 01/07/20 06:05 01/07/20 06:05 ABG Results ABG pH 7.289 (7.350-7.450) L 01/07/20 06:30 ABG HCO3 39.6 mmol/L (22-27) H 01/07/20 06:30 ABG O2 Sat (Measured) 99.3 mmHg (95-98) H 01/07/20 06:30 ABG O2 Content No Result Required. 01/07/20 06:30 ABG Base Excess 10.2 mmol/L (-2-2) H 01/07/20 06:30 Imaging - Results Chest X-ray: Report Reviewed, Image Reviewed Cat Scan: Report Reviewed, Image Reviewed (RML, RLL infiltrates, increased interstitial markings) Assessment/Plan Opiate Overdose Acute on Chronic Hypoxic and Hypercapneic Respiratory Failure Pneumonia likely Aspiration CHF DM Hyperlipidemia Smoker - continue antibiotics - f/u cultures - O2 to keep Spo2 >90% - inhaled bronchodilators - can defer systemic steroids at this time - smoking cessation - DVT prophylaxis Thank you for this consult Gabriel Ruiz MD
[2020-01-07] MEDS ORDERED: ALBUTEROL SO4 HFA INHALER IH PRN (13:35)
[2020-01-07] MEDS: ACETAMINOPHEN 1000 MG/100 ML VIAL (NON FORMULARY) IVPB PRN (17:28)
[2020-01-07] MEDS: VANCOMYCIN 1 GM in D5W (PRE-DOCKED) 1,000 MG/250 ML IVPB SCH (18:47)
[2020-01-07] MEDS ORDERED: KETOROLAC TROMETHAMINE 30 MG/1 ML VIAL IM ONE (19:50)
[2020-01-07] MEDS: INSULIN SLIDING SCALE (NOVOLOG) 1 VIAL SQ SCH (21:57)
[2020-01-07] MEDS: BUDESONIDE/FORMETEROL FUMARATE 160/4.5 mcg INHALER IH SCH (22:24)
[2020-01-08] MEDS: ACETAMINOPHEN 1000 MG/100 ML VIAL (NON FORMULARY) IVPB PRN ×2 (00:10→10:47)
[2020-01-08] MEDS ORDERED: oxyCODONE HCL 5 MG TABLET PO ONE (02:38)
[2020-01-08] MEDS ORDERED: MELATONIN 5 MG TABLETS PO ONE (02:39)
[2020-01-08] MEDS ORDERED: DEXTROSE 5%-WATER - 50 ML IVPB ONE ×4 (04:14→20:49)
[2020-01-08] MEDS ORDERED: PIPERACILLIN/TAZOBACTAM 3.375 GM VIAL IVPB ONE ×4 (04:14→20:48)
[2020-01-08] MEDS: PIPERACILLIN/TAZOB 3.375 GM 3.375 GM in DEXTROSE 5%-WATER - 50 ML IVPB SCH ×4 (04:36→22:01)
[2020-01-08] MEDS: INSULIN SLIDING SCALE (NOVOLOG) 1 VIAL SQ SCH ×4 (06:07→21:13)
[2020-01-08 07:54] LABS: BASO % 0.3 % (0-2.0); EOS % 0.6 % (0-4.5); HEMATOCRIT 33.3 % (35.4-49); HEMOGLOBIN 10.1 GM/dL (11.7-16.9); LYMPH % 13.9 % (8-40); MCH 22.9 pg (25.7-33.7); MCHC 30.3 g/dl (32.0-35.9); MEAN CELL VOLUME 75.5 fl (80-96); MEAN PLT VOLUME 7.9 fl (7.5-11.1); MONO % 6.7 % (3.8-10.2); NEUT % 78.5 % (42.8-82.8); PLATELET COUNT 209 K/MM3 (134-434); RBC 4.42 M/mm3 (4.00-5.60); RDW 19.6 % (11.9-15.9)
[2020-01-08 08:30] LABS: BLOOD UREA NITROGEN 18.6 mg/dL (7-18); CREATININE 0.6 mg/dL (0.55-1.3); POTASSIUM 4.4 mmol/L (3.5-5.1)
[2020-01-08 08:34] LABS: BILIRUBIN,TOTAL 0.6 mg/dL (0.2-1); TOT PROT 5.4 g/dl (6.4-8.2)
[2020-01-08] MEDS: ENOXAPARIN NA (PORCINE) 40 MG/0.4 ML DISP.SYRIN SQ SCH (10:30)
[2020-01-08] MEDS: VANCOMYCIN 1 GM in D5W (PRE-DOCKED) 1,000 MG/250 ML IVPB SCH (10:30)
[2020-01-08] MEDS: BUDESONIDE/FORMETEROL FUMARATE 160/4.5 mcg INHALER IH SCH ×2 (10:31→21:08)
--- NOTE | 2020-01-08 12:09 | PN ---
Progress Note (short form) - Note Progress Note: PULMONARY Denies shortness of breath, cough or fevers. Vital Signs Period Temp Pulse Resp BP Sys/Nichols Pulse Ox Last 24 Hr 97.4 F-98.4 F 54-96 18-26 109-146/66-91 92-98 Gen: NAD at rest Heart: RRR Lung: decreased breath sounds at the bases Abd: soft, nontender Ext: no edema CBC, BMP 01/08/20 06:45 01/08/20 06:45 Active Medications Acetaminophen (Ofirmev Injection -) 1,000 mg IVPB Q6H PRN PRN Reason: PAIN Stop: 01/08/20 13:05 Last Admin: 01/08/20 10:47 Dose: 1,000 mg Documented by: Albuterol Sulfate (Ventolin Hfa Inhaler -) 2 puff IH Q4H PRN PRN Reason: SHORT OF BREATH/WHEEZING Last Admin: 01/07/20 20:16 Dose: 2 puff Documented by: Budesonide/Formoterol Fumarate (Symbicort 160/4.5mcg -) 2 puff IH BID FLAKITA Last Admin: 01/08/20 10:31 Dose: 2 puff Documented by: Enoxaparin Sodium (Lovenox -) 40 mg SQ DAILY FLAKITA Last Admin: 01/08/20 10:30 Dose: 40 mg Documented by: Piperacillin Sod/Tazobactam (Sod 3.375 gm/ Dextrose) 50 mls @ 100 mls/hr IVPB Q6H FLAKITA; Protocol Last Admin: 01/08/20 11:09 Dose: 100 mls/hr Documented by: Insulin Aspart (Novolog Vial Sliding Scale -) 1 vial SQ ACHS FLAKITA; Protocol Last Admin: 01/08/20 11:09 Dose: Not Given Documented by: Vancomycin HCl (Vancomycin (Pre-Docked)) 1,000 mg IVPB DAILY FLAKITA; Protocol Last Admin: 01/08/20 10:30 Dose: 1,000 mg Documented by: A/P Opiate Overdose Acute on Chronic Hypoxic and Hypercapneic Respiratory Failure Pneumonia likely Aspiration CHF DM Hyperlipidemia Smoker - continue antibiotics - f/u cultures - O2 to keep Spo2 >90% - inhaled bronchodilators - can defer systemic steroids at this time - smoking cessation - DVT prophylaxis
[2020-01-08] MEDS ORDERED: IBUPROFEN 400 MG TABLET (FP) PO PRN (13:11)
--- NOTE | 2020-01-08 13:15 | PN ---
Physical Exam: SUBJECTIVE: Patient seen and examined He has no shortness of breath or distress but complained of joint pains and Tylenol helping enough he needs something stronger. He was admitted for opiate overdose. OBJECTIVE: Vital Signs Period Temp Pulse Resp BP Sys/Nichols Pulse Ox Last 24 Hr 97.7 F-98.4 F 54-96 18-26 127-146/66-91 92-98 GENERAL: The patient is awake, alert, and fully oriented, in no acute distress. HEAD: Normal with no signs of trauma. EYES: PERRL, extraocular movements intact, sclera anicteric, conjunctiva clear. No ptosis. ENT: Ears normal, nares patent, oropharynx clear without exudates, moist mucous membranes. NECK: Trachea midline, full range of motion, supple. LUNGS: Breath sounds equal, clear to auscultation bilaterally, no wheezes, no crackles, no accessory muscle use. HEART: Regular rate and rhythm, S1, S2 without murmur, rub or gallop. ABDOMEN: Soft, nontender, nondistended, normoactive bowel sounds, no guarding, no rebound, no hepatosplenomegaly, no masses. EXTREMITIES: 2+ pulses, warm, well-perfused, no edema. NEUROLOGICAL: Cranial nerves II through XII grossly intact. Normal speech, gait not observed. PSYCH: Normal mood, normal affect. SKIN: Warm, dry, normal turgor, no rashes or lesions noted Laboratory Results - last 24 hr 01/06/20 01/07/20 01/08/20 22:00 20:46 06:45 WBC 10.0 RBC 4.42 Hgb 10.1 L Hct 33.3 L MCV 75.5 L MCH 22.9 L MCHC 30.3 L RDW 19.6 H Plt Count 209 MPV 7.9 Absolute Neuts (auto) 7.9 Neutrophils % 78.5 Lymphocytes % 13.9 D Monocytes % 6.7 Eosinophils % 0.6 D Basophils % 0.3 Nucleated RBC % 0 Sodium Potassium Chloride Carbon Dioxide Anion Gap BUN Creatinine Est GFR (CKD-EPI)AfAm Est GFR (CKD-EPI)NonAf POC Glucometer 154 Random Glucose Calcium Total Bilirubin AST ALT Alkaline Phosphatase Total Protein Albumin COVID-19 (DREW) Not detected 01/08/20 06:45 WBC RBC Hgb Hct MCV MCH MCHC RDW Plt Count MPV Absolute Neuts (auto) Neutrophils % Lymphocytes % Monocytes % Eosinophils % Basophils % Nucleated RBC % Sodium 132 L Potassium 4.4 Chloride 89 L Carbon Dioxide 38 H Anion Gap 5 L BUN 18.6 H Creatinine 0.6 Est GFR (CKD-EPI)AfAm 125.77 Est GFR (CKD-EPI)NonAf 108.52 POC Glucometer Random Glucose 83 Calcium 8.0 L Total Bilirubin 0.6 AST 14 L ALT 8 L Alkaline Phosphatase 53 Total Protein 5.4 L Albumin 2.0 L COVID-19 (DREW) Active Medications Generic Name Dose Route Start Last Admin Trade Name Freq PRN Reason Stop Dose Admin Albuterol Sulfate 2 puff 01/07/20 13:35 01/07/20 20:16 Ventolin Hfa Inhaler - IH 2 puff Q4H PRN Administration SHORT OF BREATH/WHEEZING Budesonide/Formoterol Fumarate 2 puff 01/07/20 22:00 01/08/20 10:31 Symbicort 160/4.5mcg - IH 2 puff BID FLAKITA Administration Enoxaparin Sodium 40 mg 01/07/20 10:00 01/08/20 10:30 Lovenox - SQ 40 mg DAILY FLAKITA Administration Piperacillin Sod/Tazobactam 50 mls @ 100 mls/hr 01/06/20 23:00 01/08/20 11:09 Sod 3.375 gm/ Dextrose IVPB 100 mls/hr Q6H FLAKITA Administration Protocol Ibuprofen 400 mg 01/08/20 13:11 Motrin - PO Q6H PRN FEVER Insulin Aspart 1 vial 01/07/20 22:00 01/08/20 11:09 Novolog Vial Sliding Scale - SQ Not Given ACHS FLAKITA Protocol Vancomycin HCl 1,000 mg 01/07/20 18:00 01/08/20 10:30 Vancomycin (Pre-Docked) IVPB 1,000 mg DAILY FLAKITA Administration Protocol ASSESSMENT/PLAN: 59-year-old male who was admitted for opiate Overdose Acute on Chronic Hypoxic and Hypercapneic Respiratory Failure Pneumonia likely Aspiration CHF DM Hyperlipidemia Joint pains Possible pneumonia on the CAT scan. Blood cultures are no growth. Continue antibiotics White cell coming down give Motrin for the pain as needed Visit type - Emergency Visit Emergency Visit: Yes ED Registration Date: 01/06/20 Care time: The patient presented to the Emergency Department on the above date and was hospitalized for further evaluation of their emergent condition. - New Patient This patient is new to me today: Yes Date on this admission: 01/08/20 - Critical Care Critical Care patient: No - Discharge Referral Referred to [facility] Med P.C.: No
[2020-01-08] MEDS: IBUPROFEN 400 MG TABLET (FP) PO PRN (21:07)
[2020-01-09] MEDS ORDERED: oxyCODONE HCL 5 MG TABLET PO ONE (00:04)
[2020-01-09] MEDS ORDERED: MELATONIN 5 MG TABLETS PO ONE (00:05)
[2020-01-09] MEDS: IBUPROFEN 400 MG TABLET (FP) PO PRN (03:42)
[2020-01-09] MEDS ORDERED: DEXTROSE 5%-WATER - 50 ML IVPB ONE (04:44)
[2020-01-09] MEDS ORDERED: PIPERACILLIN/TAZOBACTAM 3.375 GM VIAL IVPB ONE (04:44)
[2020-01-09] MEDS: PIPERACILLIN/TAZOB 3.375 GM 3.375 GM in DEXTROSE 5%-WATER - 50 ML IVPB SCH (04:45)
[2020-01-09] MEDS: INSULIN SLIDING SCALE (NOVOLOG) 1 VIAL SQ SCH (06:27)
--- NOTE | 2020-01-09 07:41 | PN ---
Progress Note, Physician - Current Medication List Current Medications: Active Medications Albuterol Sulfate (Ventolin Hfa Inhaler -) 2 puff IH Q4H PRN PRN Reason: SHORT OF BREATH/WHEEZING Last Admin: 01/07/20 20:16 Dose: 2 puff Documented by: Budesonide/Formoterol Fumarate (Symbicort 160/4.5mcg -) 2 puff IH BID [facility] Last Admin: 01/08/20 21:08 Dose: 2 puff Documented by: Enoxaparin Sodium (Lovenox -) 40 mg SQ DAILY [facility] Last Admin: 01/08/20 10:30 Dose: 40 mg Documented by: Piperacillin Sod/Tazobactam (Sod 3.375 gm/ Dextrose) 50 mls @ 100 mls/hr IVPB Q6H [facility]; Protocol Last Admin: 01/09/20 04:45 Dose: 100 mls/hr Documented by: Ibuprofen (Motrin -) 400 mg PO Q6H PRN PRN Reason: PAIN LEVEL 6-10 Last Admin: 01/09/20 03:42 Dose: 400 mg Documented by: Insulin Aspart (Novolog Vial Sliding Scale -) 1 vial SQ ACHS [facility]; Protocol Last Admin: 01/09/20 06:27 Dose: Not Given Documented by: - Objective Vital Signs: Vital Signs Temperature 98.0 F 01/09/20 06:00 Pulse Rate 61 01/09/20 06:00 Respiratory Rate 20 01/09/20 06:00 Blood Pressure 136/80 01/09/20 06:00 O2 Sat by Pulse Oximetry (%) 99 01/09/20 06:00 Labs: CBC, BMP 01/08/20 06:45 01/08/20 06:45 INR, PTT INR 1.10 (0.83-1.09) H 01/06/20 16:40 Assessment/Plan A/P Opiate Overdose Acute on Chronic Hypoxic and Hypercapneic Respiratory Failure Pneumonia likely Aspiration CHF DM Hyperlipidemia Smoker - continue antibiotics - f/u cultures - O2 to keep Spo2 >90% - inhaled bronchodilators - can defer systemic steroids at this time - smoking cessation - DVT prophylaxis
[2020-01-09 09:20] VITALS: BP 151/76; PULSE 64; TEMP 98.4
--- NOTE | 2020-01-10 13:19 | PN ---
Physical Exam: SUBJECTIVE: Received notification from nursing staff that patient insisted to leave AMA. Patient was previously thinking about leaving AMA and I notified patient that leaving AMA would risk him developing respiratory failure, infection and ultimately . Patient understood these risks and this morning decided to leave AMA with his son. Patient left prior to being examined. Vital Signs (72 hours) 01/07/20 01/07/20 01/07/20 17:00 20:00 21:00 Temperature 98.4 F Pulse Rate 96 H Respiratory 20 Rate Blood Pressure 138/66 O2 Sat by Pulse 94 L 95 93 L Oximetry (%) 01/07/20 01/07/20 01/08/20 22:00 22:30 02:00 Temperature 98.0 F 98.2 F Pulse Rate 81 70 Respiratory 20 18 Rate Blood Pressure 127/68 137/91 O2 Sat by Pulse 93 L 95 Oximetry (%) 01/08/20 01/08/20 01/08/20 06:00 08:50 09:00 Temperature 97.7 F Pulse Rate 54 L Respiratory 20 Rate Blood Pressure 146/76 O2 Sat by Pulse 98 92 L 92 L Oximetry (%) 01/08/20 01/08/20 01/08/20 09:20 13:50 16:42 Temperature 98.3 F 98.3 F Pulse Rate 94 H 74 Respiratory 26 H 18 Rate Blood Pressure 139/74 134/66 O2 Sat by Pulse 92 L 92 L 93 L Oximetry (%) 01/08/20 01/08/20 01/08/20 17:04 17:25 20:19 Temperature 98.3 F Pulse Rate 70 Respiratory 24 H Rate Blood Pressure 155/80 O2 Sat by Pulse 100 93 L 95 Oximetry (%) 01/08/20 01/08/20 01/09/20 21:00 22:00 02:00 Temperature 98.3 F Pulse Rate 76 72 Respiratory 22 H 22 H 20 Rate Blood Pressure 133/78 140/80 O2 Sat by Pulse 96 96 98 Oximetry (%) 01/09/20 01/09/20 01/09/20 04:30 06:00 08:47 Temperature 98.0 F Pulse Rate 61 Respiratory 20 Rate Blood Pressure 136/80 O2 Sat by Pulse 98 99 92 L Oximetry (%) 01/09/20 09:20 Temperature 98.4 F Pulse Rate 64 Respiratory 20 Rate Blood Pressure 151/76 O2 Sat by Pulse 92 L Oximetry (%) Microbiology 01/06/20 17:03 Blood - Peripheral Venous Blood Culture - Preliminary NO GROWTH OBTAINED AFTER 72 HOURS, INCUBATION TO CONTINUE FOR 2 DAYS. 01/06/20 17:03 Blood - Peripheral Venous Blood Culture - Preliminary NO GROWTH OBTAINED AFTER 72 HOURS, INCUBATION TO CONTINUE FOR 2 DAYS. 01/06/20 18:30 Urine - Urine Clean Catch Urine Culture - Final NO GROWTH OBTAINED Home Medications Medication Instructions Recorded Morphine Sulfate [Morphine Sulfate 30 mg PO BID 09/12/19 ER] oxyCODONE HCL [Oxycodone HCl] 30 mg PO QID 09/12/19 Pregabalin 225 mg PO TID 01/07/20 ASSESSMENT/PLAN: 59 M Acute Hypercapneic Respiratory Failure COPD with acute exacerbation PSA with opioid dependence (juvenal Fontaine) HAP PNA Pulmonary HTN HTN HLD Plan: Patient signed out against medical advised despite being advised of the risks of leaving. Patient signed out prior to being examined. Visit type - Emergency Visit Emergency Visit: Yes ED Registration Date: 01/06/20 Care time: The patient presented to the Emergency Department on the above date and was hospitalized for further evaluation of their emergent condition. - New Patient This patient is new to me today: No - Critical Care Critical Care patient: No - Discharge Referral Referred to [facility] Med P.C.: No
--- NOTE | 2020-01-10 13:26 | DS ---
Physical Exam: SUBJECTIVE: Patient adament about leaving AMA, signed out with his son. Few days prior, patient wanted to leave AMA and was advised of the risks of leaving including respiratory failure, infection and . Today however, despite knowing these risks, decided to leave AMA with son. OBJECTIVE: PHYSICAL EXAM Patient left AMA Laboratory Tests 01/06/20 01/06/20 01/06/20 16:40 16:40 16:40 WBC 35.2 H* RBC 4.87 Hgb 11.0 L Hct 37.4 MCV 76.8 L MCH 22.6 L MCHC 29.5 L RDW 19.8 H Plt Count 243 MPV 7.8 Absolute Neuts (auto) 31.7 H Neutrophils % 90.1 H Neutrophils % (Manual) 89.2 H Band Neutrophils % 1.0 Lymphocytes % 3.5 L D Lymphocytes % (Manual) 4.9 L D Monocytes % 6.3 D Monocytes % (Manual) 4 Eosinophils % 0.0 D Eosinophils % (Manual) 0.0 Basophils % 0.1 Basophils % (Manual) 0.0 Myelocytes % (Man) 0 D Promyelocytes % (Man) 0 Blast Cells % (Manual) 0 Nucleated RBC % 0 Metamyelocytes 0 Hypochromia 1+ Platelet Estimate Normal Polychromasia 1+ Poikilocytosis 2+ Anisocytosis 3+ Microcytosis 3+ Macrocytosis 0 Target Cells 1+ PT with INR 13.00 INR 1.10 H PTT (Actin FS) 28.6 Anticoagulation Therapy Puncture Site Patient Temperature ABG pH ABG pCO2 ABG pO2 ABG HCO3 ABG O2 Sat (Measured) ABG O2 Content ABG Base Excess Emmanuel Test VBG pH POC VBG pCO2 POC VBG pO2 VBG HCO3 VBG O2 Sat (Mirta) VBG Base Excess Patient On Oxygen O2 Delivery Device Oxygen Flow Rate Vent Mode Vent Rate Mechanical Rate PEEP Pressure Support Vent Sodium 137 Potassium 5.3 H Chloride 95 L Carbon Dioxide 38 H Anion Gap 3 L BUN 17.8 Creatinine 0.8 Est GFR (CKD-EPI)AfAm 111.74 Est GFR (CKD-EPI)NonAf 96.41 POC Glucometer Random Glucose 125 H Lactic Acid Calcium 8.3 L Phosphorus Magnesium Total Bilirubin 0.4 AST 23 ALT 11 L Alkaline Phosphatase 60 Ammonia Troponin I 0.06 H Total Protein 6.2 L Albumin 2.4 L Urine Color Urine Appearance Urine pH Ur Specific [place] Urine Protein Urine Glucose (UA) Urine Ketones Urine Blood Urine Nitrite Urine Bilirubin Urine Urobilinogen Ur Leukocyte Esterase Salicylates Opiates Screen Methadone Screen Acetaminophen Barbiturate Screen Phencyclidine Screen Ur Amphetamines Screen MDMA (Ecstasy) Screen Benzodiazepines Screen Cocaine Screen U Marijuana (THC) Screen COVID-19 (DREW) 01/06/20 01/06/20 01/06/20 16:40 17:03 17:03 WBC RBC Hgb Hct MCV MCH MCHC RDW Plt Count MPV Absolute Neuts (auto) Neutrophils % Neutrophils % (Manual) Band Neutrophils % Lymphocytes % Lymphocytes % (Manual) Monocytes % Monocytes % (Manual) Eosinophils % Eosinophils % (Manual) Basophils % Basophils % (Manual) Myelocytes % (Man) Promyelocytes % (Man) Blast Cells % (Manual) Nucleated RBC % Metamyelocytes Hypochromia Platelet Estimate Polychromasia Poikilocytosis Anisocytosis Microcytosis Macrocytosis Target Cells PT with INR INR PTT (Actin FS) Anticoagulation Therapy Puncture Site Patient Temperature ABG pH ABG pCO2 ABG pO2 ABG HCO3 ABG O2 Sat (Measured) ABG O2 Content ABG Base Excess Emmanuel Test VBG pH 7.312 POC VBG pCO2 83.6 H* POC VBG pO2 49.6 H VBG HCO3 41.3 H VBG O2 Sat (Mirta) 79.4 VBG Base Excess 11.7 H Patient On Oxygen O2 Delivery Device Oxygen Flow Rate Vent Mode Vent Rate Mechanical Rate PEEP Pressure Support Vent Sodium Potassium Chloride Carbon Dioxide Anion Gap BUN Creatinine Est GFR (CKD-EPI)AfAm Est GFR (CKD-EPI)NonAf POC Glucometer Random Glucose Lactic Acid 1.3 Calcium Phosphorus Magnesium Total Bilirubin AST ALT Alkaline Phosphatase Ammonia 50.10 H Troponin I Total Protein Albumin Urine Color Urine Appearance Urine pH Ur Specific [place] Urine Protein Urine Glucose (UA) Urine Ketones Urine Blood Urine Nitrite Urine Bilirubin Urine Urobilinogen Ur Leukocyte Esterase Salicylates Opiates Screen Methadone Screen Acetaminophen Barbiturate Screen Phencyclidine Screen Ur Amphetamines Screen MDMA (Ecstasy) Screen Benzodiazepines Screen Cocaine Screen U Marijuana (THC) Screen COVID-19 (DREW) 01/06/20 01/06/20 01/06/20 18:30 18:58 19:39 WBC RBC Hgb Hct MCV MCH MCHC RDW Plt Count MPV Absolute Neuts (auto) Neutrophils % Neutrophils % (Manual) Band Neutrophils % Lymphocytes % Lymphocytes % (Manual) Monocytes % Monocytes % (Manual) Eosinophils % Eosinophils % (Manual) Basophils % Basophils % (Manual) Myelocytes % (Man) Promyelocytes % (Man) Blast Cells % (Manual) Nucleated RBC % Metamyelocytes Hypochromia Platelet Estimate Polychromasia Poikilocytosis Anisocytosis Microcytosis Macrocytosis Target Cells PT with INR INR PTT (Actin FS) Anticoagulation Therapy Puncture Site Patient Temperature ABG pH ABG pCO2 ABG pO2 ABG HCO3 ABG O2 Sat (Measured) ABG O2 Content ABG Base Excess Emmanuel Test VBG pH POC VBG pCO2 POC VBG pO2 VBG HCO3 VBG O2 Sat (Mirta) VBG Base Excess Patient On Oxygen O2 Delivery Device Oxygen Flow Rate Vent Mode Vent Rate Mechanical Rate PEEP Pressure Support Vent Sodium Potassium Chloride Carbon Dioxide Anion Gap BUN Creatinine Est GFR (CKD-EPI)AfAm Est GFR (CKD-EPI)NonAf POC Glucometer Random Glucose Lactic Acid Calcium Phosphorus Magnesium Total Bilirubin AST ALT Alkaline Phosphatase Ammonia Troponin I Total Protein Albumin Urine Color Yellow Urine Appearance Clear Urine pH 7.0 D Ur Specific [place] 1.012 Urine Protein Negative Urine Glucose (UA) Negative Urine Ketones Negative Urine Blood Negative Urine Nitrite Negative Urine Bilirubin Negative Urine Urobilinogen 1.0 Ur Leukocyte Esterase Negative Salicylates 1.9 L Opiates Screen Positive A* Methadone Screen Negative Acetaminophen < 2.0 Barbiturate Screen Negative Phencyclidine Screen Negative Ur Amphetamines Screen Negative MDMA (Ecstasy) Screen Negative Benzodiazepines Screen Negative Cocaine Screen Negative U Marijuana (THC) Screen Positive A* COVID-19 (DREW) 01/06/20 01/06/20 01/06/20 22:00 22:00 22:00 WBC RBC Hgb Hct MCV MCH MCHC RDW Plt Count MPV Absolute Neuts (auto) Neutrophils % Neutrophils % (Manual) Band Neutrophils % Lymphocytes % Lymphocytes % (Manual) Monocytes % Monocytes % (Manual) Eosinophils % Eosinophils % (Manual) Basophils % Basophils % (Manual) Myelocytes % (Man) Promyelocytes % (Man) Blast Cells % (Manual) Nucleated RBC % Metamyelocytes Hypochromia Platelet Estimate Polychromasia Poikilocytosis Anisocytosis Microcytosis Macrocytosis Target Cells PT with INR INR PTT (Actin FS) Anticoagulation Therapy Puncture Site Patient Temperature ABG pH ABG pCO2 ABG pO2 ABG HCO3 ABG O2 Sat (Measured) ABG O2 Content ABG Base Excess Emmanuel Test VBG pH POC VBG pCO2 POC VBG pO2 VBG HCO3 VBG O2 Sat (Mirta) VBG Base Excess Patient On Oxygen O2 Delivery Device Oxygen Flow Rate Vent Mode Vent Rate Mechanical Rate PEEP Pressure Support Vent Sodium Potassium Chloride Carbon Dioxide Anion Gap BUN Creatinine Est GFR (CKD-EPI)AfAm Est GFR (CKD-EPI)NonAf POC Glucometer Random Glucose Lactic Acid 0.9 Calcium Phosphorus Magnesium Total Bilirubin AST ALT Alkaline Phosphatase Ammonia Troponin I 0.05 Total Protein Albumin Urine Color Urine Appearance Urine pH Ur Specific [place] Urine Protein Urine Glucose (UA) Urine Ketones Urine Blood Urine Nitrite Urine Bilirubin Urine Urobilinogen Ur Leukocyte Esterase Salicylates Opiates Screen Methadone Screen Acetaminophen Barbiturate Screen Phencyclidine Screen Ur Amphetamines Screen MDMA (Ecstasy) Screen Benzodiazepines Screen Cocaine Screen U Marijuana (THC) Screen COVID-19 (DREW) Not detected 01/07/20 01/07/20 01/07/20 06:05 06:05 06:30 WBC 20.4 H RBC 4.51 Hgb 10.4 L Hct 35.1 L MCV 77.9 L MCH 23.1 L MCHC 29.6 L RDW 19.1 H Plt Count 217 MPV 8.1 Absolute Neuts (auto) 17.3 H Neutrophils % 84.7 H Neutrophils % (Manual) 85.4 H Band Neutrophils % 0.0 Lymphocytes % 7.4 L D Lymphocytes % (Manual) 4.9 L Monocytes % 7.8 Monocytes % (Manual) 9 D Eosinophils % 0.0 Eosinophils % (Manual) 0.0 Basophils % 0.1 Basophils % (Manual) 0.0 Myelocytes % (Man) 0 Promyelocytes % (Man) 0 Blast Cells % (Manual) 0 Nucleated RBC % 0 Metamyelocytes 0 Hypochromia 1+ Platelet Estimate Normal Polychromasia 1+ Poikilocytosis 0 Anisocytosis 1+ Microcytosis 1+ Macrocytosis 0 Target Cells PT with INR INR PTT (Actin FS) Anticoagulation Therapy No Result Required. Puncture Site Right brachial Patient Temperature No Result Required. ABG pH 7.289 L ABG pCO2 84.50 H* ABG pO2 220.2 H ABG HCO3 39.6 H ABG O2 Sat (Measured) 99.3 H ABG O2 Content No Result Required. ABG Base Excess 10.2 H Emmanuel Test Positive VBG pH POC VBG pCO2 POC VBG pO2 VBG HCO3 VBG O2 Sat (Mirta) VBG Base Excess Patient On Oxygen Yes O2 Delivery Device Bipap Oxygen Flow Rate 100% Vent Mode No Result Required. Vent Rate 16 Mechanical Rate No Result Required. PEEP No Result Required. Pressure Support Vent 12/5 Sodium 141 Potassium 4.6 Chloride 97 L Carbon Dioxide 44 H Anion Gap 1 L BUN 19.4 H Creatinine 0.6 Est GFR (CKD-EPI)AfAm 125.77 Est GFR (CKD-EPI)NonAf 108.52 POC Glucometer Random Glucose 69 L Lactic Acid Calcium 8.4 L Phosphorus 4.2 Magnesium 2.1 Total Bilirubin 0.4 AST 9 L ALT 10 L Alkaline Phosphatase 57 Ammonia Troponin I Total Protein 5.6 L Albumin 2.1 L Urine Color Urine Appearance Urine pH Ur Specific [place] Urine Protein Urine Glucose (UA) Urine Ketones Urine Blood Urine Nitrite Urine Bilirubin Urine Urobilinogen Ur Leukocyte Esterase Salicylates Opiates Screen Methadone Screen Acetaminophen Barbiturate Screen Phencyclidine Screen Ur Amphetamines Screen MDMA (Ecstasy) Screen Benzodiazepines Screen Cocaine Screen U Marijuana (THC) Screen COVID-19 (DREW) 01/07/20 01/08/20 01/08/20 20:46 06:45 06:45 WBC 10.0 RBC 4.42 Hgb 10.1 L Hct 33.3 L MCV 75.5 L MCH 22.9 L MCHC 30.3 L RDW 19.6 H Plt Count 209 MPV 7.9 Absolute Neuts (auto) 7.9 Neutrophils % 78.5 Neutrophils % (Manual) Band Neutrophils % Lymphocytes % 13.9 D Lymphocytes % (Manual) Monocytes % 6.7 Monocytes % (Manual) Eosinophils % 0.6 D Eosinophils % (Manual) Basophils % 0.3 Basophils % (Manual) Myelocytes % (Man) Promyelocytes % (Man) Blast Cells % (Manual) Nucleated RBC % 0 Metamyelocytes Hypochromia Platelet Estimate Polychromasia Poikilocytosis Anisocytosis Microcytosis Macrocytosis Target Cells PT with INR INR PTT (Actin FS) Anticoagulation Therapy Puncture Site Patient Temperature ABG pH ABG pCO2 ABG pO2 ABG HCO3 ABG O2 Sat (Measured) ABG O2 Content ABG Base Excess Emmanuel Test VBG pH POC VBG pCO2 POC VBG pO2 VBG HCO3 VBG O2 Sat (Mirta) VBG Base Excess Patient On Oxygen O2 Delivery Device Oxygen Flow Rate Vent Mode Vent Rate Mechanical Rate PEEP Pressure Support Vent Sodium 132 L Potassium 4.4 Chloride 89 L Carbon Dioxide 38 H Anion Gap 5 L BUN 18.6 H Creatinine 0.6 Est GFR (CKD-EPI)AfAm 125.77 Est GFR (CKD-EPI)NonAf 108.52 POC Glucometer 154 Random Glucose 83 Lactic Acid Calcium 8.0 L Phosphorus Magnesium Total Bilirubin 0.6 AST 14 L ALT 8 L Alkaline Phosphatase 53 Ammonia Troponin I Total Protein 5.4 L Albumin 2.0 L Urine Color Urine Appearance Urine pH Ur Specific [place] Urine Protein Urine Glucose (UA) Urine Ketones Urine Blood Urine Nitrite Urine Bilirubin Urine Urobilinogen Ur Leukocyte Esterase Salicylates Opiates Screen Methadone Screen Acetaminophen Barbiturate Screen Phencyclidine Screen Ur Amphetamines Screen MDMA (Ecstasy) Screen Benzodiazepines Screen Cocaine Screen U Marijuana (THC) Screen COVID-19 (DREW) 01/08/20 01/08/20 01/09/20 17:08 21:10 05:51 WBC RBC Hgb Hct MCV MCH MCHC RDW Plt Count MPV Absolute Neuts (auto) Neutrophils % Neutrophils % (Manual) Band Neutrophils % Lymphocytes % Lymphocytes % (Manual) Monocytes % Monocytes % (Manual) Eosinophils % Eosinophils % (Manual) Basophils % Basophils % (Manual) Myelocytes % (Man) Promyelocytes % (Man) Blast Cells % (Manual) Nucleated RBC % Metamyelocytes Hypochromia Platelet Estimate Polychromasia Poikilocytosis Anisocytosis Microcytosis Macrocytosis Target Cells PT with INR INR PTT (Actin FS) Anticoagulation Therapy Puncture Site Patient Temperature ABG pH ABG pCO2 ABG pO2 ABG HCO3 ABG O2 Sat (Measured) ABG O2 Content ABG Base Excess Emmanuel Test VBG pH POC VBG pCO2 POC VBG pO2 VBG HCO3 VBG O2 Sat (Mirta) VBG Base Excess Patient On Oxygen O2 Delivery Device Oxygen Flow Rate Vent Mode Vent Rate Mechanical Rate PEEP Pressure Support Vent Sodium Potassium Chloride Carbon Dioxide Anion Gap BUN Creatinine Est GFR (CKD-EPI)AfAm Est GFR (CKD-EPI)NonAf POC Glucometer 203 171 130 Random Glucose Lactic Acid Calcium Phosphorus Magnesium Total Bilirubin AST ALT Alkaline Phosphatase Ammonia Troponin I Total Protein Albumin Urine Color Urine Appearance Urine pH Ur Specific [place] Urine Protein Urine Glucose (UA) Urine Ketones Urine Blood Urine Nitrite Urine Bilirubin Urine Urobilinogen Ur Leukocyte Esterase Salicylates Opiates Screen Methadone Screen Acetaminophen Barbiturate Screen Phencyclidine Screen Ur Amphetamines Screen MDMA (Ecstasy) Screen Benzodiazepines Screen Cocaine Screen U Marijuana (THC) Screen COVID-19 (DREW) Microbiology 01/06/20 17:03 Blood - Peripheral Venous Blood Culture - Preliminary NO GROWTH OBTAINED AFTER 72 HOURS, INCUBATION TO CONTINUE FOR 2 DAYS. 01/06/20 17:03 Blood - Peripheral Venous Blood Culture - Preliminary NO GROWTH OBTAINED AFTER 72 HOURS, INCUBATION TO CONTINUE FOR 2 DAYS. 01/06/20 18:30 Urine - Urine Clean Catch Urine Culture - Final NO GROWTH OBTAINED Home Medications Medication Instructions Recorded Morphine Sulfate [Morphine Sulfate 30 mg PO BID 09/12/19 ER] oxyCODONE HCL [Oxycodone HCl] 30 mg PO QID 09/12/19 Pregabalin 225 mg PO TID 01/07/20 HOSPITAL COURSE: 59 M h/o T2DM, COPD on 4L home O2, CHF, Opioid dependence (30 morphine TID and 30 oxycodone q6h at home), active smoker, brought in by ambulance for altered mental status and respiratory failure likely 2/2 overdose on opiate medications. Patient MS improved on Narcon administrations and BiPAP, patient started on Zosyn for HAP treatment. Patient was recently at [facility] with similar presentation in which he signed out AMA at that time, patient was also intubated in the ICU on last admission. Patient adament on this admission to leave AMA, signed out with his son despite knowing the risks of respiratory failure, infection and . Date of Admission:01/06/20 Date of Discharge: 01/09/20 Discharge: Patient signed out against medical advice. Minutes to complete discharge: 30 Discharge Summary Problems reviewed: Yes Reason For Visit: ACUTE RESPIRATORY FAILURE,SEPSIS,ALTERED MENTAL Condition: Stable - Instructions Referrals: Eduardo Kearney MD [Primary Care Provider] - Disposition: AGAINST MEDICAL ADVICE - Home Medications Comprehensive Discharge Medication List: Ambulatory Orders Morphine Sulfate [Morphine Sulfate ER] 30 mg PO BID 09/12/19 oxyCODONE HCL [Oxycodone HCl] 30 mg PO QID 09/12/19 Pregabalin 225 mg PO TID 01/07/20 This patient is new to me today: No Emergency Visit: Yes ED Registration Date: 01/06/20 Care time: The patient presented to the Emergency Department on the above date and was hospitalized for further evaluation of their emergent condition. Critical Care patient: No - Discharge Referral Referred to [facility] Med P.C.: No
== END 2020-01-09 10:04 | disposition left against medical advice (07) | DRG 917 ==
LOC: JER 16:31 → JERBED 19:07 → J4S 01-07 00:12
PROVIDERS: ADMIT Internal Medicine
DX: T40.2X1A Poisoning by other opioids, accidental (unintentional), initial encounter (principal); J96.21 Acute and chronic respiratory failure with hypoxia; J96.22 Acute and chronic respiratory failure with hypercapnia; J69.0 Pneumonitis due to inhalation of food and vomit; F11.20 Opioid dependence, uncomplicated; J44.1 Chronic obstructive pulmonary disease with (acute) exacerbation; I50.30 Unspecified diastolic (congestive) heart failure; E46 Unspecified protein-calorie malnutrition; Y92.89 Other specified places as the place of occurrence of the external cause; I27.20 Pulmonary hypertension, unspecified; I10 Essential (primary) hypertension; E78.5 Hyperlipidemia, unspecified; E11.9 Type 2 diabetes mellitus without complications; D72.829 Elevated white blood cell count, unspecified; N40.0 Benign prostatic hyperplasia without lower urinary tract symptoms; E88.09 Other disorders of plasma-protein metabolism, not elsewhere classified; Z68.30 Body mass index [BMI] 30.0-30.9, adult; E87.5 Hyperkalemia; G62.9 Polyneuropathy, unspecified; Z72.0 Tobacco use
CPT/HCPCS: 36415; 36600; 70450-TC; 71045-TC-FY; 71250-TC; 80053; 80307; 81003; 82140; 82803; 82962; 83605; 83735; 84100; 84484; 85025; 85610; 85730; 87040; 87086; 93005; 93010; 94660; 99285-25; J0131; U0003

== ENCOUNTER 2020-02-19 14:19 | Inpatient (IN) | payer OTHER ==
--- OUTSIDE RECORDS SUMMARY | 2020-02-19 14:38 | XMS ---
:1960 Author Organization [facility] Care Team Providers Name Role Phone ED STAFF PHYSICIAN, STAFF Unavailable Unavailable CRISTINA YINKA, YINKA Unavailable Unavailable Higinio, Crescencio Unavailable Unavailable Higinio, Crescencio Unavailable Unavailable Re-disclosure Warning The records that you are about to access may contain information from federally- assisted alcohol or drug abuse programs. If such information is present, then the following federally mandated warning applies: This information has been disclosed to you from records protected by federal confidentiality rules (42 CFR part 2). The federal rules prohibit you from making any further disclosure of this information unless further disclosure is expressly permitted by the written consent of the person to whom it pertains or as otherwise permitted by 42 CFR part 2. A general authorization for the release of medical or other information is NOT sufficient for this purpose. The Federal rules restrict any use of the information to criminally investigate or prosecute any alcohol or drug abuse patient.The records that you are about to access may contain highly sensitive health information, the redisclosure of which is protected by Article 27-F of the [facility] Public Health law. If you continue you may haveaccess to information: Regarding HIV / AIDS; Provided by facilities licensed or operated by the [facility] Office of Mental Health; or Provided by the [facility] Office for People With Developmental Disabilities. If such information is present, then the following [facility] mandated warning applies: This information has been disclosed to you from confidential records which are protected by state law. State law prohibits you from making any further disclosure of this information without the specific written consent of the person to whom it pertains, or as otherwise permitted by law. Any unauthorized further disclosure in violation of state law may result in a fine or chcf sentence or both. A general authorization for the release of medical or other information is NOT sufficient authorization for further disclosure. Encounters Encounter Providers Location Date Indications Data Source(s ) Inpatient Attender: Crescencio Gonsalves-HAL6 07/20/2019 [facility] IsaacAttender: 01:32:00 PM EDT Medic al Center YINKA EVANS - 07/27/2019 TRISTANAttender: 06:21:00 AM EDT STAFF ED STAFF PHYSICIANAdmitter: YINKA EVANS TRISTANReferrer: YINKA CRISTINA YINKA Patient discharged. Insurance Providers Payer name Policy type Policy ID Covered Covered green party's Policy P alvin / Coverage green party ID relationship to Lock Inf ormation type lock [place] [id number] [place] [id number] 02 HEALTHCARE HMO 2 [place] [id number] [place] [id number] 02 HEALTHCARE PPO 2 SELF PAY SP INSURANCE C I G N A H O [id number] 02 [id number] M O 2 O CIGNA HMO O [id number] 02 [id number] 02 2 C I G N A H O [id number] 02 [id number] M O 2 C I G N A H O [id number] 02 [id number] M O 2 Problems, Conditions, and Diagnoses Code Display Name Description Problem Type Effective Data Dates Source(s) F11.90 Opioid use, OPIOID USE, Diagnosis 07/27/2019 [facility] unspecified, UNSPECIFIED, 06:21:00 AM Medical uncomplicated UNCOMPLICATED EDT Center J44.9 Chronic obstructive CHRONIC OBSTRUCTIVE Diagnosis 020 [facility] pulmonary disease, PULMONARY DISEASE, 06:21:00 AM Medical unspecified UNSPECIFIED EDT Center E11.42 Type 2 diabetes TYPE 2 DIABETES Diagnosis 07/27/2019 [facility] mellitus with MELLITUS WITH 06:21:00 AM Medical diabetic DIABETIC EDT Center polyneuropathy POLYNEUROPATHY N17.9 Acute kidney ACUTE KIDNEY Diagnosis 07/27/2019 [facility] failure, FAILURE, 06:21:00 AM Medical unspecified UNSPECIFIED EDT Center J69.0 Pneumonitis due to PNEUMONITIS DUE TO Diagnosis 0 [facility] inhalation of food INHALATION OF FOOD 06:21:00 AM Medical and vomit AND VOMIT EDT Center A41.9 Sepsis, unspecified SEPSIS, UNSPECIFIED Diagnosis 020 [facility] organism ORGANISM 06:21:00 AM Medical EDT Center J96.02 Acute respiratory ACUTE RESPIRATORY Diagnosis 07/27/2019 [facility] failure with FAILURE WITH 06:21:00 AM Medical hypercapnia HYPERCAPNIA EDT Center J96.00 Acute respiratory ACUTE RESPIRATORY Diagnosis 07/20/2019 [facility] failure, FAILURE, UNSP W 01:32:00 PM Medical unspecified whether HYPOXIA OR EDT Cente r with hypoxia or HYPERCAPNIA hypercapnia Surgeries/Procedures Procedure Description Date Indications Data Source(s) Bronchoscopy Completed 07/21/2019 [facility] (procedure) Bronchoscopy, by 02:00:00 PM Medical Farhan Mayer, on EDT 07/21/2019 2:00 PM Results ID Date Data Source [id number] 01/06/2020 10:00:00 PM EDT [facility] Name Value Range Interpretation Description Data Sup porting Code Source(s) Document(s ) SARS [facility] coronavirus 2 RNA This lab was ordered by [facility] and reported by [facility]. ID Date Data Source [id number] 09/22/2019 07:00:00 PM EDT [facility] Name Value Range Interpretation Description Data Sup porting Code Source(s) Document(s ) SARS [facility] CORONAVIRUS 2 RNA This lab was ordered by [facility] and reported by [facility]. ID Date Data Source [id number] 08/21/2019 12:00:00 AM EDT [facility] Name Value Range Interpretation Code Description Data Kala rce(s) Supporting Document(s ) [facility] XXX DREW+probe- Imp This lab was ordered by [facility] and reported by [facility] ID Date Data Source HematologyRou.[id number] 07/27/2019 05:15:00 AM EDT [facility] 0400 Name Value Range Interpretation Description Data Sup porting Code Source(s) Document(s ) Leukocytes 4.4-11.0 <content [facility] [#/volume] in styleCode="Bold [facility] Blood by ">White Blood Medical Automated count Cell Count Center </content>6.91 KCUMM<content styleCode="Ital ics"> (4.4-11.0 KCUMM)</content > Hemoglobin 13.5-17. Below low normal <content [facility] [Mass/volume] in 5 styleCode="Bold Ye[facility] Blood ">Hemoglobin Medical </content>13.1 Center G/DL L<content styleCode="Ital ics"> (13.5-17.5 G/DL)</content> Erythrocytes 4.4-5.9 <content [facility] [#/volume] in styleCode="Bold [facility] Blood by ">Red Blood Medical Automated count Cell Count Center </content>5.08 MCUMM<content styleCode="Ital ics"> (4.4-5.9 MCUMM)</content > Erythrocyte mean 80.0-100 <content [facility] corpuscular .0 styleCode="Bold Yeimi volume [Entitic ">Mean Medical volume] by Corpuscular Center Automated count Volume </content>81.3 FL<content styleCode="Ital ics"> (80.0-100.0 FL)</content> Hematocrit 41.0-53. <content [facility] [Volume 0 styleCode="Bold Yeimi Fraction] of ">Hematocrit Medical Blood by </content>41.3 Center Automated count %<content styleCode="Ital ics"> (41.0-53.0 %)</content> Erythrocyte mean 26.0-34. Below low normal <content [facility] corpuscular 0 styleCode="Bold Yeimi hemoglobin ">Mean Medical [Entitic mass] Corposcular Center by Automated Hemoglobin count </content>25.8 PG L<content styleCode="Ital ics"> (26.0-34.0 PG)</content> Erythrocyte 11.5-14. Above high <content [facility] distribution 5 normal styleCode="Bold Yeimi width [Ratio] by ">Red Cell Medical Automated count Distribution Center Width </content>19.0 % H<content styleCode="Ital ics"> (11.5-14.5 %)</content> Platelets 130-400 <content [facility] [#/volume] in styleCode="Bold [facility] Blood by ">Platelet Medical Automated count Count Center </content>348 KCUMM<content styleCode="Ital ics"> (130-400 KCUMM)</content > Erythrocyte mean 32.0-37. Below low normal <content [facility] corpuscular 0 styleCode="Bold Yeimi hemoglobin ">Mean Corpus. Medical concentration Hgb Center [Mass/volume] by Concentration Automated count (MCHC) </content>31.7 G/DL L<content styleCode="Ital ics"> (32.0-37.0 G/DL)</content> Neutrophils 36-66 <content [facility] [#/volume] in styleCode="Bold [facility] Blood by ">Neutrophil Medical Automated count </content>55.5 Center %<content styleCode="Ital ics"> (36-66 %)</content> Platelet mean 8.0-11.0 <content [facility] volume [Entitic styleCode="Bold Yeimi volume] in Blood ">Mean Platelet Medical by Automated Volume Center count </content>9.3 FL<content styleCode="Ital ics"> (8.0-11.0 FL)</content> UNK 1.6-7.3 <content [facility] styleCode="Bold Yeimi ">Neutrophil Medical Count Center </content>3.83 KCUMM<content styleCode="Ital ics"> (1.6-7.3 KCUMM)</content > UNK 1.0-4.8 <content [facility] styleCode="Bold Yeimi ">Lymphocyte Medical Count Center </content>1.97 KCUMM<content styleCode="Ital ics"> (1.0-4.8 KCUMM)</content > Lymphocytes 24.0-44. <content [facility] [#/volume] in 0 styleCode="Bold Ye[facility] Blood by ">Lymphocyte Medical Automated count </content>28.5 Center %<content styleCode="Ital ics"> (24.0-44.0 %)</content> Monocytes 3.0-10.0 Above high <content [facility] [#/volume] in normal styleCode="Bold [facility] Blood by ">Monocyte Medical Automated count </content>14.2 Center % H<content styleCode="Ital ics"> (3.0-10.0 %)</content> Eosinophils 0-5.0 <content [facility] [#/volume] in styleCode="Bold Ye[facility] Blood by ">Eosinophil Medical Automated count </content>0.7 Center %<content styleCode="Ital ics"> (0-5.0 %)</content> UNK 0.2-0.9 Above high <content [facility] normal styleCode="Bold Yeimi ">Monocyte Medical Count Center </content>0.98 KCUMM H<content styleCode="Ital ics"> (0.2-0.9 KCUMM)</content > UNK 0.0-0.3 <content Saint styleCode="Bold Yeimi ">Basophil Medical Count Center </content>0.01 KCUMM<content styleCode="Ital ics"> (0.0-0.3 KCUMM)</content > UNK 0 <content Saint styleCode="Bold Yeimi ">Nucleated Red Medical Blood Cell Center </content>0.0 /100<content styleCode="Ital ics"> (0 /100)</content> Basophils 0.0-1.0 <content [facility] [#/volume] in styleCode="Bold Ye[facility] Blood by ">Basophil Medical Automated count </content>0.1 Center %<content styleCode="Ital ics"> (0.0-1.0 %)</content> UNK 0.0-0.6 <content [facility] styleCode="Bold Yeimi ">Eosinophil Medical Count Center </content>0.05 KCUMM<content styleCode="Ital ics"> (0.0-0.6 KCUMM)</content > UNK < 1 Above high <content [facility] normal styleCode="Bold Yeimi ">Immature Medical Granulocyte Center Ratio </content>1.0 % H<content styleCode="Ital ics"> (< 1 %)</content> UNK 0.0 <content Saint styleCode="Bold Yeimi ">Nucleated Red Medical Blood Cell Center Count </content>0.00 KCUMM<content styleCode="Ital ics"> (0.0 KCUMM)</content > UNK 0-0.1 <content [facility] styleCode="Bold Yeimi ">Immature Medical Granulocyte Center Count </content>0.07 KCUMM<content styleCode="Ital ics"> (0-0.1 KCUMM)</content > ID Date Data Source GFR(Creatinine).[id number] 07/27/2019 05:15:00 AM EDT [facility] 0-0400 Name Value Range Interpretation Code Description Data Kala rce(s) Supporting Document(s ) UNK > 60 <content [facility] styleCode="Bold"> Medical Cent er EGFR </content>146 GFR<content styleCode="Italic s"> (> 60 GFR)</content> ID Date Data Source CHTIPCCDA.[id number] 07/27/2019 05:15:00 AM EDT [facility] -0400 Name Value Range Interpretation Description Data Sup porting Code Source(s) Document(s ) Magnesium 1.6-2.3 <content [facility] [Mass/volume] styleCode="Sarika Yeimi in Serum or d">Magnesium Medical Plasma </content>1.8 Center MG/DL<content styleCode="Erin lics"> (1.6-2.3 MG/DL)</conten t> Phosphate 2.5-4.5 <content [facility] [Mass/volume] styleCode="Sarika Yeimi in Serum or d">Phosphorus Medical Plasma </content>3.1 Center MG/DL<content styleCode="Erin lics"> (2.5-4.5 MG/DL)</conten t> ID Date Data Source [facility].[id number] 07/27/2019 05:15:00 AM EDT [facility] Name Value Range Interpretation Description Data Sup porting Code Source(s) Document(s ) Potassium 3.5-5.3 <content [facility] [Moles/volume] styleCode="Sarika Yeimi in Serum or d">Potassium Medical Plasma </content>3.6 Center MEQ/L<content styleCode="Erin lics"> (3.5-5.3 MEQ/L)</conten t> Sodium 137-145 <content [facility] [Moles/volume] styleCode="[place]ika [place] in Serum or d">Sodium Medical Plasma </content>139 Center MEQ/L<content styleCode="Erin lics"> (137-145 MEQ/L)</conten t> Chloride 98-107 <content [facility] [Moles/volume] styleCode="[place]ika [place] in Serum or d">Chloride Medical Plasma </content>103 Center MEQ/L<content styleCode="Erin lics"> (98-107 MEQ/L)</conten t> Creatinine 0.5-1.3 <content [facility] [Mass/volume] styleCode="Sarika [place] in Serum or d">Creatinine Medical Plasma </content>0.6 Center MG/DL<content styleCode="Erin lics"> (0.5-1.3 MG/DL)</conten t> Glucose 74-106 <content [facility] [Mass/volume] styleCode="[place]ika [place] in Serum or d">Glucose Medical Plasma </content>92 Center MG/DL<content styleCode="Erin lics"> (74-106 MG/DL)</conten t> UNK 9-20 <content [facility] styleCode="[place]ika [place] d">BUN Medical </content>12 Center MG/DL<content styleCode="Erin lics"> (9-20 MG/DL)</conten t> Carbon 22-30 <content [facility] dioxide, total styleCode="[place]ika [place] [Moles/volume] d">Carbon Medical in Serum or Dioxide Center Plasma </content>27 MEQ/L<content styleCode="Erin lics"> (22-30 MEQ/L)</conten t> UNK > 60 <content [facility] styleCode="Sarika Yeimi d">EGFR Medical </content>146 Center GFR<content styleCode="Erin lics"> (> 60 GFR)</content> Calcium 8.4-10.2 <content [facility] [Mass/volume] styleCode="Sarika [place] in Serum or d">Calcium Medical Plasma </content>8.8 Center MG/DL<content styleCode="Erin lics"> (8.4-10.2 MG/DL)</conten t> ID Date Data Source Liver 07/26/2019 06:30:00 AM EDT [facility] Profile.[id number] Name Value Range Interpretation Description Data Sup porting Code Source(s) Document(s ) Alanine 7-50 <content [facility] aminotransferase styleCode="Bold"> Charan hs [Enzymatic Alanine Medical activity/volume] Aminotransferase Center in Serum or Plasma (ALT) </content>17 IU/L<content styleCode="Italic s"> (7-50 IU/L)</content> Aspartate 17-59 <content [facility] aminotransferase styleCode="Bold"> Charan hs [Enzymatic Aspartate Medical activity/volume] Aminotransferase Center in Serum or Plasma (AST) </content>29 IU/L<content styleCode="Italic s"> (17-59 IU/L)</content> Bilirubin.total 0.2-1.3 <content [facility] [Mass/volume] in styleCode="Bold"> Charan hs Serum or Plasma Bilirubin Total Medical </content>0.6 Center MG/DL<content styleCode="Italic s"> (0.2-1.3 MG/DL)</content> Alkaline 38-126 <content [facility] phosphatase styleCode="Bold"> Yeimi [Enzymatic Alkaline Medical activity/volume] Phosphatase (ALP) Cente r in Serum or Plasma </content>56 IU/L<content styleCode="Italic s"> (38-126 IU/L)</content> Albumin 3.5-5.0 Below low <content [facility] [Mass/volume] in normal styleCode="Bold"> Charan hs Serum or Plasma Albumin Medical </content>2.7 Center G/DL L<content styleCode="Italic s"> (3.5-5.0 G/DL)</content> ID Date Data Source HematologyRou.[id number] 07/26/2019 06:30:00 AM EDT [facility] 0400 Name Value Range Interpretation Description Data Sup porting Code Source(s) Document(s ) Erythrocytes 4.4-5.9 <content [facility] [#/volume] in styleCode="Bold Yeimi Blood by ">Red Blood Medical Automated count Cell Count Center </content>4.75 MCUMM<content styleCode="Ital ics"> (4.4-5.9 MCUMM)</content > Leukocytes 4.4-11.0 <content [facility] [#/volume] in styleCode="Bold Yeimi Blood by ">White Blood Medical Automated count Cell Count Center </content>6.87 KCUMM<content styleCode="Ital ics"> (4.4-11.0 KCUMM)</content > Erythrocyte mean 80.0-100 <content [facility] corpuscular .0 styleCode="Bold Yeimi volume [Entitic ">Mean Medical volume] by Corpuscular Center Automated count Volume </content>81.1 FL<content styleCode="Ital ics"> (80.0-100.0 FL)</content> Hemoglobin 13.5-17. Below low normal <content [facility] [Mass/volume] in 5 styleCode="Bold Yeimi Blood ">Hemoglobin Medical </content>12.3 Center G/DL L<content styleCode="Ital ics"> (13.5-17.5 G/DL)</content> Hematocrit 41.0-53. Below low normal <content [facility] [Volume 0 styleCode="Bold Yeimi Fraction] of ">Hematocrit Medical Blood by </content>38.5 Center Automated count % L<content styleCode="Ital ics"> (41.0-53.0 %)</content> Erythrocyte mean 26.0-34. Below low normal <content [facility] corpuscular 0 styleCode="Bold Yeimi hemoglobin ">Mean Medical [Entitic mass] Corposcular Center by Automated Hemoglobin count </content>25.9 PG L<content styleCode="Ital ics"> (26.0-34.0 PG)</content> Erythrocyte mean 32.0-37. Below low normal <content [facility] corpuscular 0 styleCode="Bold Yeimi hemoglobin ">Mean Corpus. Medical concentration Hgb Center [Mass/volume] by Concentration Automated count (MCHC) </content>31.9 G/DL L<content styleCode="Ital ics"> (32.0-37.0 G/DL)</content> Platelets 130-400 <content [facility] [#/volume] in styleCode="Bold Yeimi Blood by ">Platelet Medical Automated count Count Center </content>269 KCUMM<content styleCode="Ital ics"> (130-400 KCUMM)</content > Erythrocyte 11.5-14. Above high <content [facility] distribution 5 normal styleCode="Bold Yeimi width [Ratio] by ">Red Cell Medical Automated count Distribution Center Width </content>18.4 % H<content styleCode="Ital ics"> (11.5-14.5 %)</content> Platelet mean 8.0-11.0 <content [facility] volume [Entitic styleCode="Bold Yeimi volume] in Blood ">Mean Platelet Medical by Automated Volume Center count </content>9.0 FL<content styleCode="Ital ics"> (8.0-11.0 FL)</content> Neutrophils 36-66 <content [facility] [#/volume] in styleCode="Bold Yeimi Blood by ">Neutrophil Medical Automated count </content>62.4 Center %<content styleCode="Ital ics"> (36-66 %)</content> Lymphocytes 24.0-44. Below low normal <content [facility] [#/volume] in 0 styleCode="Bold Yeimi Blood by ">Lymphocyte Medical Automated count </content>19.9 Center % L<content styleCode="Ital ics"> (24.0-44.0 %)</content> UNK 1.6-7.3 <content [facility] styleCode="Bold Yeimi ">Neutrophil Medical Count Center </content>4.28 KCUMM<content styleCode="Ital ics"> (1.6-7.3 KCUMM)</content > UNK 0.2-0.9 Above high <content [facility] normal styleCode="Bold Yeimi ">Monocyte Medical Count Center </content>1.12 KCUMM H<content styleCode="Ital ics"> (0.2-0.9 KCUMM)</content > Monocytes 3.0-10.0 Above high <content [facility] [#/volume] in normal styleCode="Bold Yeimi Blood by ">Monocyte Medical Automated count </content>16.3 Center % H<content styleCode="Ital ics"> (3.0-10.0 %)</content> UNK 1.0-4.8 <content [facility] styleCode="Bold Yeimi ">Lymphocyte Medical Count Center </content>1.37 KCUMM<content styleCode="Ital ics"> (1.0-4.8 KCUMM)</content > Eosinophils 0-5.0 <content [facility] [#/volume] in styleCode="Bold Yeimi Blood by ">Eosinophil Medical Automated count </content>0.4 Center %<content styleCode="Ital ics"> (0-5.0 %)</content> Basophils 0.0-1.0 <content [facility] [#/volume] in styleCode="Bold Yeimi Blood by ">Basophil Medical Automated count </content>0.1 Center %<content styleCode="Ital ics"> (0.0-1.0 %)</content> UNK 0.0-0.6 <content [facility] styleCode="Bold Yeimi ">Eosinophil Medical Count Center </content>0.03 KCUMM<content styleCode="Ital ics"> (0.0-0.6 KCUMM)</content > UNK 0 <content [facility] styleCode="Bold Yeimi ">Nucleated Red Medical Blood Cell Center </content>0.0 /100<content styleCode="Ital ics"> (0 /100)</content> UNK 0.0-0.3 <content [facility] styleCode="Bold Yeimi ">Basophil Medical Count Center </content>0.01 KCUMM<content styleCode="Ital ics"> (0.0-0.3 KCUMM)</content > UNK 0-0.1 <content [facility] styleCode="Bold Yeimi ">Immature Medical Granulocyte Center Count </content>0.06 KCUMM<content styleCode="Ital ics"> (0-0.1 KCUMM)</content > UNK < 1 <content [facility] styleCode="Bold Yeimi ">Immature Medical Granulocyte Center Ratio </content>0.9 %<content styleCode="Ital ics"> (< 1 %)</content> UNK 0.0 <content [facility] styleCode="Bold Yeimi ">Nucleated Red Medical Blood Cell Center Count </content>0.00 KCUMM<content styleCode="Ital ics"> (0.0 KCUMM)</content > ID Date Data Source GFR(Creatinine).[id number] 07/26/2019 06:30:00 AM EDT [facility] 0-0400 Name Value Range Interpretation Code Description Data Kala rce(s) Supporting Document(s ) UNK > 60 <content [facility] styleCode="Bold"> Medical Cent er EGFR </content>180 GFR<content styleCode="Italic s"> (> 60 GFR)</content> ID Date Data Source Coagulation 07/26/2019 06:30:00 AM [facility] ical Center Rout.[id number] EDT Name Value Range Interpretation Description Data Sup porting Code Source(s) Document(s ) UNK 9.0-13.0 <content [facility] styleCode="Bold" Yeimi >Protime Medical </content>12.6 Center SEC<content styleCode="Itali cs"> (9.0-13.0 SEC)</content> INR in 0.80-1.2 <content [facility] Platelet poor 0 styleCode="Bold" Yeimi plasma by >INR Medical Coagulation </content>1.14 Center assay #<content styleCode="Itali cs"> (0.80-1.20 #)</content> aPTT in 25.1-36. <content [facility] Platelet poor 5 styleCode="Bold" Yeimi plasma by >Partial Medical Coagulation Thromboplastin Center assay Time </content>29.8 SEC<content styleCode="Itali cs"> (25.1-36.5 SEC)</content> ID Date Data Source CHMROUTINECCDA.[id number] 07/26/2019 06:30:00 AM EDT [facility] -0400 Name Value Range Interpretation Description Data Sup porting Code Source(s) Document(s ) Magnesium 1.6-2.3 <content [facility] [Mass/volume] styleCode="Sarika Jalloh in Serum or d">Magnesium Medical Plasma </content>1.8 Center MG/DL<content styleCode="Erin lics"> (1.6-2.3 MG/DL)</conten t> UNK 2.3-3.5 <content [facility] styleCode="Sarika [place] d">Globulin Medical </content>3.0 Center G/DL<content styleCode="Erin lics"> (2.3-3.5 G/DL)</content > UNK >= 1.0 Below low normal <content [facility] styleCode="Sarika [place] d">AG Ratio Medical </content>0.9 Center L<content styleCode="Erin lics"> (>= 1.0 )</content> Protein 6.3-8.2 Below low normal <content [facility] [Mass/volume] styleCode="Sarika [place] in Serum or d">Total Medical Plasma Protein Center </content>5.7 G/DL L<content styleCode="Erin lics"> (6.3-8.2 G/DL)</content > Phosphate 2.5-4.5 <content [facility] [Mass/volume] styleCode="Sarika [place] in Serum or d">Phosphorus Medical Plasma </content>2.9 Center MG/DL<content styleCode="Erin lics"> (2.5-4.5 MG/DL)</conten t> ID Date Data Source [facility].[id number] 07/26/2019 06:30:00 AM EDT [facility] Name Value Range Interpretation Description Data Sup porting Code Source(s) Document(s ) Sodium 137-145 <content [facility] [Moles/volume] in styleCode="Bold"> Wenceslao donahue Serum or Plasma Sodium Medical </content>137 Center MEQ/L<content styleCode="Italic s"> (137-145 MEQ/L)</content> UNK 9-20 <content [facility] styleCode="Bold"> Yeimi BUN </content>12 Medical MG/DL<content Center styleCode="Italic s"> (9-20 MG/DL)</content> Potassium 3.5-5.3 Below low <content [facility] [Moles/volume] in normal styleCode="Bold"> Wenceslao phs Serum or Plasma Potassium Medical </content>3.3 Center MEQ/L L<content styleCode="Italic s"> (3.5-5.3 MEQ/L)</content> Carbon dioxide, 22-30 <content [facility] total styleCode="Bold"> Yeimi [Moles/volume] in Carbon Dioxide Medical Serum or Plasma </content>30 Center MEQ/L<content styleCode="Italic s"> (22-30 MEQ/L)</content> Chloride 98-107 <content [facility] [Moles/volume] in styleCode="Bold"> Wenceslao phs Serum or Plasma Chloride Medical </content>101 Center MEQ/L<content styleCode="Italic s"> (98-107 MEQ/L)</content> Calcium 8.4-10. <content [facility] [Mass/volume] in 2 styleCode="Bold"> Charan hs Serum or Plasma Calcium Medical </content>8.4 Center MG/DL<content styleCode="Italic s"> (8.4-10.2 MG/DL)</content> Creatinine 0.5-1.3 <content [facility] [Mass/volume] in styleCode="Bold"> Charan hs Serum or Plasma Creatinine Medical </content>0.5 Center MG/DL<content styleCode="Italic s"> (0.5-1.3 MG/DL)</content> Glucose 74-106 <content [facility] [Mass/volume] in styleCode="Bold"> Charan hs Serum or Plasma Glucose Medical </content>104 Center MG/DL<content styleCode="Italic s"> (74-106 MG/DL)</content> Aspartate 17-59 <content [facility] aminotransferase styleCode="Bold"> Charan hs [Enzymatic Aspartate Medical activity/volume] Aminotransferase Center in Serum or Plasma (AST) </content>29 IU/L<content styleCode="Italic s"> (17-59 IU/L)</content> UNK > 60 <content [facility] styleCode="Bold"> Yeimi EGFR Medical </content>180 Center GFR<content styleCode="Italic s"> (> 60 GFR)</content> Alkaline 38-126 <content [facility] phosphatase styleCode="Bold"> Yeimi [Enzymatic Alkaline Medical activity/volume] Phosphatase (ALP) Cente r in Serum or Plasma </content>56 IU/L<content styleCode="Italic s"> (38-126 IU/L)</content> Alanine 7-50 <content [facility] aminotransferase styleCode="Bold"> Charan hs [Enzymatic Alanine Medical activity/volume] Aminotransferase Center in Serum or Plasma (ALT) </content>17 IU/L<content styleCode="Italic s"> (7-50 IU/L)</content> Bilirubin.total 0.2-1.3 <content [facility] [Mass/volume] in styleCode="Bold"> Charan hs Serum or Plasma Bilirubin Total Medical </content>0.6 Center MG/DL<content styleCode="Italic s"> (0.2-1.3 MG/DL)</content> Albumin 3.5-5.0 Below low <content [facility] [Mass/volume] in normal styleCode="Bold"> Charan hs Serum or Plasma Albumin Medical </content>2.7 Center G/DL L<content styleCode="Italic s"> (3.5-5.0 G/DL)</content> ID Date Data Source Liver 07/25/2019 06:00:00 AM EDT [facility] Profile.[id number] Name Value Range Interpretation Description Data Sup porting Code Source(s) Document(s ) Aspartate 17-59 <content [facility] aminotransferase styleCode="Bold"> Charan hs [Enzymatic Aspartate Medical activity/volume] Aminotransferase Center in Serum or Plasma (AST) </content>30 IU/L<content styleCode="Italic s"> (17-59 IU/L)</content> Bilirubin.total 0.2-1.3 <content [facility] [Mass/volume] in styleCode="Bold"> Charan hs Serum or Plasma Bilirubin Total Medical </content>0.5 Center MG/DL<content styleCode="Italic s"> (0.2-1.3 MG/DL)</content> Alanine 7-50 <content [facility] aminotransferase styleCode="Bold"> Charan hs [Enzymatic Alanine Medical activity/volume] Aminotransferase Center in Serum or Plasma (ALT) </content>14 IU/L<content styleCode="Italic s"> (7-50 IU/L)</content> Alkaline 38-126 <content [facility] phosphatase styleCode="Bold"> Ye[facility] [Enzymatic Alkaline Medical activity/volume] Phosphatase (ALP) Cente r in Serum or Plasma </content>56 IU/L<content styleCode="Italic s"> (38-126 IU/L)</content> Albumin 3.5-5.0 Below low <content [facility] [Mass/volume] in normal styleCode="Bold"> Charan hs Serum or Plasma Albumin Medical </content>2.7 Center G/DL L<content styleCode="Italic s"> (3.5-5.0 G/DL)</content> ID Date Data Source HematologyRou.[id number] 07/25/2019 06:00:00 AM EDT [facility] 0400 Name Value Range Interpretation Description Data Sup porting Code Source(s) Document(s ) Leukocytes 4.4-11.0 <content [facility] [#/volume] in styleCode="Bold Yeimi Blood by ">White Blood Medical Automated count Cell Count Center </content>7.92 KCUMM<content styleCode="Ital ics"> (4.4-11.0 KCUMM)</content > Hemoglobin 13.5-17. Below low normal <content [facility] [Mass/volume] in 5 styleCode="Bold Yeimi Blood ">Hemoglobin Medical </content>11.3 Center G/DL L<content styleCode="Ital ics"> (13.5-17.5 G/DL)</content> Erythrocytes 4.4-5.9 <content [facility] [#/volume] in styleCode="Bold Yeimi Blood by ">Red Blood Medical Automated count Cell Count Center </content>4.43 MCUMM<content styleCode="Ital ics"> (4.4-5.9 MCUMM)</content > Hematocrit 41.0-53. Below low normal <content [facility] [Volume 0 styleCode="Bold Yeimi Fraction] of ">Hematocrit Medical Blood by </content>36.7 Center Automated count % L<content styleCode="Ital ics"> (41.0-53.0 %)</content> Erythrocyte mean 32.0-37. Below low normal <content [facility] corpuscular 0 styleCode="Bold Yeimi hemoglobin ">Mean Corpus. Medical concentration Hgb Center [Mass/volume] by Concentration Automated count (MCHC) </content>30.8 G/DL L<content styleCode="Ital ics"> (32.0-37.0 G/DL)</content> Erythrocyte mean 26.0-34. Below low normal <content [facility] corpuscular 0 styleCode="Bold Yeimi hemoglobin ">Mean Medical [Entitic mass] Corposcular Center by Automated Hemoglobin count </content>25.5 PG L<content styleCode="Ital ics"> (26.0-34.0 PG)</content> Erythrocyte mean 80.0-100 <content [facility] corpuscular .0 styleCode="Bold Yeimi volume [Entitic ">Mean Medical volume] by Corpuscular Center Automated count Volume </content>82.8 FL<content styleCode="Ital ics"> (80.0-100.0 FL)</content> Platelets 130-400 <content [facility] [#/volume] in styleCode="Bold Yeimi Blood by ">Platelet Medical Automated count Count Center </content>265 KCUMM<content styleCode="Ital ics"> (130-400 KCUMM)</content > Platelet mean 8.0-11.0 <content [facility] volume [Entitic styleCode="Bold Yeimi volume] in Blood ">Mean Platelet Medical by Automated Volume Center count </content>10.0 FL<content styleCode="Ital ics"> (8.0-11.0 FL)</content> Erythrocyte 11.5-14. Above high <content [facility] distribution 5 normal styleCode="Bold Yeimi width [Ratio] by ">Red Cell Medical Automated count Distribution Center Width </content>19.1 % H<content styleCode="Ital ics"> (11.5-14.5 %)</content> Neutrophils 36-66 <content [facility] [#/volume] in styleCode="Bold Yeimi Blood by ">Neutrophil Medical Automated count </content>65.1 Center %<content styleCode="Ital ics"> (36-66 %)</content> UNK 1.6-7.3 <content [facility] styleCode="Bold Yeimi ">Neutrophil Medical Count Center </content>5.15 KCUMM<content styleCode="Ital ics"> (1.6-7.3 KCUMM)</content > Lymphocytes 24.0-44. Below low normal <content [facility] [#/volume] in 0 styleCode="Bold Yeimi Blood by ">Lymphocyte Medical Automated count </content>19.8 Center % L<content styleCode="Ital ics"> (24.0-44.0 %)</content> UNK 1.0-4.8 <content [facility] styleCode="Bold Yeimi ">Lymphocyte Medical Count Center </content>1.57 KCUMM<content styleCode="Ital ics"> (1.0-4.8 KCUMM)</content > Monocytes 3.0-10.0 Above high <content [facility] [#/volume] in normal styleCode="Bold Yeimi Blood by ">Monocyte Medical Automated count </content>14.4 Center % H<content styleCode="Ital ics"> (3.0-10.0 %)</content> UNK 0.0-0.6 <content [facility] styleCode="Bold Yeimi ">Eosinophil Medical Count Center </content>0.01 KCUMM<content styleCode="Ital ics"> (0.0-0.6 KCUMM)</content > UNK 0.2-0.9 Above high <content [facility] normal styleCode="Bold Yeimi ">Monocyte Medical Count Center </content>1.14 KCUMM H<content styleCode="Ital ics"> (0.2-0.9 KCUMM)</content > Eosinophils 0-5.0 <content [facility] [#/volume] in styleCode="Bold Yeimi Blood by ">Eosinophil Medical Automated count </content>0.1 Center %<content styleCode="Ital ics"> (0-5.0 %)</content> Basophils 0.0-1.0 <content [facility] [#/volume] in styleCode="Bold Yeimi Blood by ">Basophil Medical Automated count </content>0.1 Center %<content styleCode="Ital ics"> (0.0-1.0 %)</content> UNK 0 <content [facility] styleCode="Bold Yeimi ">Nucleated Red Medical Blood Cell Center </content>0.0 /100<content styleCode="Ital ics"> (0 /100)</content> UNK 0.0-0.3 <content [facility] styleCode="Bold Yeimi ">Basophil Medical Count Center </content>0.01 KCUMM<content styleCode="Ital ics"> (0.0-0.3 KCUMM)</content > UNK 0-0.1 <content [facility] styleCode="Bold Yeimi ">Immature Medical Granulocyte Center Count </content>0.04 KCUMM<content styleCode="Ital ics"> (0-0.1 KCUMM)</content > UNK 0.0 <content [facility] styleCode="Bold Yeimi ">Nucleated Red Medical Blood Cell Center Count </content>0.00 KCUMM<content styleCode="Ital ics"> (0.0 KCUMM)</content > UNK < 1 <content [facility] styleCode="Bold Yeimi ">Immature Medical Granulocyte Center Ratio </content>0.5 %<content styleCode="Ital ics"> (< 1 %)</content> ID Date Data Source GFR(Creatinine).[id number] 07/25/2019 06:00:00 AM EDT [facility] 0-0400 Name Value Range Interpretation Code Description Data Kala rce(s) Supporting Document(s ) UNK > 60 <content [facility] styleCode="Bold"> Medical Cent er EGFR </content>180 GFR<content styleCode="Italic s"> (> 60 GFR)</content> ID Date Data Source Coagulation 07/25/2019 06:00:00 AM [facility] Rout.[id number] EDT Name Value Range Interpretation Description Data Sup porting Code Source(s) Document(s ) UNK 9.0-13.0 <content [facility] styleCode="Bold" Yeimi >Protime Medical </content>11.9 Center SEC<content styleCode="Itali cs"> (9.0-13.0 SEC)</content> aPTT in 25.1-36. <content [facility] Platelet poor 5 styleCode="Bold" Yeimi plasma by >Partial Medical Coagulation Thromboplastin Center assay Time </content>28.2 SEC<content styleCode="Itali cs"> (25.1-36.5 SEC)</content> INR in 0.80-1.2 <content [facility] Platelet poor 0 styleCode="Bold" Yeimi plasma by >INR Medical Coagulation </content>1.07 Center assay #<content styleCode="Itali cs"> (0.80-1.20 #)</content> ID Date Data Source CHMROUTINECCDA.[id number] 07/25/2019 06:00:00 AM EDT [facility] -0400 Name Value Range Interpretation Description Data Sup porting Code Source(s) Document(s ) UNK 2.3-3.5 <content [facility] styleCode="Sarika Yeimi d">Globulin Medical </content>2.9 Center G/DL<content styleCode="Erin lics"> (2.3-3.5 G/DL)</content > UNK >= 1.0 Below low normal <content [facility] styleCode="Sarika Yeimi d">AG Ratio Medical </content>0.9 Center L<content styleCode="Erin lics"> (>= 1.0 )</content> Magnesium 1.6-2.3 Below low normal <content [facility] [Mass/volume] styleCode="Sarika Yeimi in Serum or d">Magnesium Medical Plasma </content>1.5 Center MG/DL L<content styleCode="Erin lics"> (1.6-2.3 MG/DL)</conten t> Phosphate 2.5-4.5 <content [facility] [Mass/volume] styleCode="Sarika [place] in Serum or d">Phosphorus Medical Plasma </content>3.3 Center MG/DL<content styleCode="Erin lics"> (2.5-4.5 MG/DL)</conten t> Protein 6.3-8.2 Below low normal <content [facility] [Mass/volume] styleCode="Sarika [place] in Serum or d">Total Medical Plasma Protein Center </content>5.6 G/DL L<content styleCode="Erin lics"> (6.3-8.2 G/DL)</content > ID Date Data Source [facility].[id number] 07/25/2019 06:00:00 AM EDT [facility] Name Value Range Interpretation Description Data Sup porting Code Source(s) Document(s ) Potassium 3.5-5.3 <content [facility] [Moles/volume] in styleCode="Bold"> [facility] Serum or Plasma Potassium Medical </content>3.7 Center MEQ/L<content styleCode="Italic s"> (3.5-5.3 MEQ/L)</content> Sodium 137-145 <content [facility] [Moles/volume] in styleCode="Bold"> [facility] Serum or Plasma Sodium Medical </content>139 Center MEQ/L<content styleCode="Italic s"> (137-145 MEQ/L)</content> Chloride 98-107 <content [facility] [Moles/volume] in styleCode="Bold"> [facility] Serum or Plasma Chloride Medical </content>98 Center MEQ/L<content styleCode="Italic s"> (98-107 MEQ/L)</content> UNK 9-20 <content [facility] styleCode="Bold"> Ye[facility] BUN </content>12 Medical MG/DL<content Center styleCode="Italic s"> (9-20 MG/DL)</content> Carbon dioxide, 22-30 Above high <content [facility] total normal styleCode="Bold"> Yeimi [Moles/volume] in Carbon Dioxide Medical Serum or Plasma </content>35 Center MEQ/L H<content styleCode="Italic s"> (22-30 MEQ/L)</content> Calcium 8.4-10. <content [facility] [Mass/volume] in 2 styleCode="Bold"> Charan hs Serum or Plasma Calcium Medical </content>8.5 Center MG/DL<content styleCode="Italic s"> (8.4-10.2 MG/DL)</content> Creatinine 0.5-1.3 <content [facility] [Mass/volume] in styleCode="Bold"> Charan hs Serum or Plasma Creatinine Medical </content>0.5 Center MG/DL<content styleCode="Italic s"> (0.5-1.3 MG/DL)</content> UNK > 60 <content [facility] styleCode="Bold"> Ye[facility] EGFR Medical </content>180 Center GFR<content styleCode="Italic s"> (> 60 GFR)</content> Glucose 74-106 <content [facility] [Mass/volume] in styleCode="Bold"> Charan hs Serum or Plasma Glucose Medical </content>77 Center MG/DL<content styleCode="Italic s"> (74-106 MG/DL)</content> Bilirubin.total 0.2-1.3 <content [facility] [Mass/volume] in styleCode="Bold"> Charan hs Serum or Plasma Bilirubin Total Medical </content>0.5 Center MG/DL<content styleCode="Italic s"> (0.2-1.3 MG/DL)</content> Alkaline 38-126 <content [facility] phosphatase styleCode="Bold"> Yeimi [Enzymatic Alkaline Medical activity/volume] Phosphatase (ALP) Cente r in Serum or Plasma </content>56 IU/L<content styleCode="Italic s"> (38-126 IU/L)</content> Alanine 7-50 <content [facility] aminotransferase styleCode="Bold"> Charan hs [Enzymatic Alanine Medical activity/volume] Aminotransferase Center in Serum or Plasma (ALT) </content>14 IU/L<content styleCode="Italic s"> (7-50 IU/L)</content> Aspartate 17-59 <content [facility] aminotransferase styleCode="Bold"> Charan hs [Enzymatic Aspartate Medical activity/volume] Aminotransferase Center in Serum or Plasma (AST) </content>30 IU/L<content styleCode="Italic s"> (17-59 IU/L)</content> Albumin 3.5-5.0 Below low <content [facility] [Mass/volume] in normal styleCode="Bold"> Charan hs Serum or Plasma Albumin Medical </content>2.7 Center G/DL L<content styleCode="Italic s"> (3.5-5.0 G/DL)</content> ID Date Data Source Liver 07/24/2019 08:50:00 AM EDT [facility] Profile.[id number] Name Value Range Interpretation Description Data Sup porting Code Source(s) Document(s ) Aspartate 17-59 <content [facility] aminotransferase styleCode="Bold"> Charan hs [Enzymatic Aspartate Medical activity/volume] Aminotransferase Center in Serum or Plasma (AST) </content>31 IU/L<content styleCode="Italic s"> (17-59 IU/L)</content> Alanine 7-50 <content [facility] aminotransferase styleCode="Bold"> Charan hs [Enzymatic Alanine Medical activity/volume] Aminotransferase Center in Serum or Plasma (ALT) </content>13 IU/L<content styleCode="Italic s"> (7-50 IU/L)</content> Alkaline 38-126 <content [facility] phosphatase styleCode="Bold"> [facility] [Enzymatic Alkaline Medical activity/volume] Phosphatase (ALP) Cente r in Serum or Plasma </content>55 IU/L<content styleCode="Italic s"> (38-126 IU/L)</content> Bilirubin.total 0.2-1.3 <content [facility] [Mass/volume] in styleCode="Bold"> Charan hs Serum or Plasma Bilirubin Total Medical </content>0.5 Center MG/DL<content styleCode="Italic s"> (0.2-1.3 MG/DL)</content> Albumin 3.5-5.0 Below low <content [facility] [Mass/volume] in normal styleCode="Bold"> Charan hs Serum or Plasma Albumin Medical </content>2.5 Center G/DL L<content styleCode="Italic s"> (3.5-5.0 G/DL)</content> ID Date Data Source HematologyRou.[id number] 07/24/2019 08:50:00 AM EDT [facility] 0400 Name Value Range Interpretation Description Data Sup porting Code Source(s) Document(s ) Leukocytes 4.4-11.0 <content [facility] [#/volume] in styleCode="Bold Yeimi Blood by ">White Blood Medical Automated count Cell Count Center </content>8.53 KCUMM<content styleCode="Ital ics"> (4.4-11.0 KCUMM)</content > Erythrocytes 4.4-5.9 Below low normal <content [facility] [#/volume] in styleCode="Bold Yeimi Blood by ">Red Blood Medical Automated count Cell Count Center </content>3.83 MCUMM L<content styleCode="Ital ics"> (4.4-5.9 MCUMM)</content > Hemoglobin 13.5-17. Below low normal <content [facility] [Mass/volume] in 5 styleCode="Bold Yeimi Blood ">Hemoglobin Medical </content>10.0 Center G/DL L<content styleCode="Ital ics"> (13.5-17.5 G/DL)</content> Hematocrit 41.0-53. Below low normal <content [facility] [Volume 0 styleCode="Bold Yeimi Fraction] of ">Hematocrit Medical Blood by </content>32.4 Center Automated count % L<content styleCode="Ital ics"> (41.0-53.0 %)</content> Erythrocyte mean 80.0-100 <content [facility] corpuscular .0 styleCode="Bold Yeimi volume [Entitic ">Mean Medical volume] by Corpuscular Center Automated count Volume </content>84.6 FL<content styleCode="Ital ics"> (80.0-100.0 FL)</content> Erythrocyte mean 26.0-34. <content [facility] corpuscular 0 styleCode="Bold Yeiim hemoglobin ">Mean Medical [Entitic mass] Corposcular Center by Automated Hemoglobin count </content>26.1 PG<content styleCode="Ital ics"> (26.0-34.0 PG)</content> Platelets 130-400 <content [facility] [#/volume] in styleCode="Bold Yeimi Blood by ">Platelet Medical Automated count Count Center </content>219 KCUMM<content styleCode="Ital ics"> (130-400 KCUMM)</content > Erythrocyte mean 32.0-37. Below low normal <content [facility] corpuscular 0 styleCode="Bold Yeimi hemoglobin ">Mean Corpus. Medical concentration Hgb Center [Mass/volume] by Concentration Automated count (MCHC) </content>30.9 G/DL L<content styleCode="Ital ics"> (32.0-37.0 G/DL)</content> Erythrocyte 11.5-14. Above high <content [facility] distribution 5 normal styleCode="Bold Yeimi width [Ratio] by ">Red Cell Medical Automated count Distribution Center Width </content>19.5 % H<content styleCode="Ital ics"> (11.5-14.5 %)</content> UNK 1.6-7.3 <content [facility] styleCode="Bold Yeimi ">Neutrophil Medical Count Center </content>6.44 KCUMM<content styleCode="Ital ics"> (1.6-7.3 KCUMM)</content > Platelet mean 8.0-11.0 <content [facility] volume [Entitic styleCode="Bold Yeimi volume] in Blood ">Mean Platelet Medical by Automated Volume Center count </content>9.7 FL<content styleCode="Ital ics"> (8.0-11.0 FL)</content> Neutrophils 36-66 Above high <content [facility] [#/volume] in normal styleCode="Bold Yeimi Blood by ">Neutrophil Medical Automated count </content>75.4 Center % H<content styleCode="Ital ics"> (36-66 %)</content> UNK 1.0-4.8 <content [facility] styleCode="Bold Yeimi ">Lymphocyte Medical Count Center </content>1.26 KCUMM<content styleCode="Ital ics"> (1.0-4.8 KCUMM)</content > Lymphocytes 24.0-44. Below low normal <content [facility] [#/volume] in 0 styleCode="Bold Yeimi Blood by ">Lymphocyte Medical Automated count </content>14.8 Center % L<content styleCode="Ital ics"> (24.0-44.0 %)</content> Monocytes 3.0-10.0 <content [facility] [#/volume] in styleCode="Bold Yeimi Blood by ">Monocyte Medical Automated count </content>9.3 Center %<content styleCode="Ital ics"> (3.0-10.0 %)</content> UNK 0.2-0.9 <content [facility] styleCode="Bold Yeimi ">Monocyte Medical Count Center </content>0.79 KCUMM<content styleCode="Ital ics"> (0.2-0.9 KCUMM)</content > Eosinophils 0-5.0 <content [facility] [#/volume] in styleCode="Bold Yeimi Blood by ">Eosinophil Medical Automated count </content>0.1 Center %<content styleCode="Ital ics"> (0-5.0 %)</content> Basophils 0.0-1.0 <content [facility] [#/volume] in styleCode="Bold Yeimi Blood by ">Basophil Medical Automated count </content>0.0 Center %<content styleCode="Ital ics"> (0.0-1.0 %)</content> UNK 0.0-0.6 <content [facility] styleCode="Bold Yeimi ">Eosinophil Medical Count Center </content>0.01 KCUMM<content styleCode="Ital ics"> (0.0-0.6 KCUMM)</content > UNK 0.0 <content [facility] styleCode="Bold Yeimi ">Nucleated Red Medical Blood Cell Center Count </content>0.00 KCUMM<content styleCode="Ital ics"> (0.0 KCUMM)</content > UNK 0 <content [facility] styleCode="Bold Yeimi ">Nucleated Red Medical Blood Cell Center </content>0.0 /100<content styleCode="Ital ics"> (0 /100)</content> UNK 0.0-0.3 <content [facility] styleCode="Bold Yeimi ">Basophil Medical Count Center </content>0.00 KCUMM<content styleCode="Ital ics"> (0.0-0.3 KCUMM)</content > UNK 0-0.1 <content [facility] styleCode="Bold Yeimi ">Immature Medical Granulocyte Center Count </content>0.03 KCUMM<content styleCode="Ital ics"> (0-0.1 KCUMM)</content > UNK < 1 <content [facility] styleCode="Bold Yeimi ">Immature Medical Granulocyte Center Ratio </content>0.4 %<content styleCode="Ital ics"> (< 1 %)</content> ID Date Data Source GFR(Creatinine).[id number] 07/24/2019 08:50:00 AM EDT [facility] 0-0400 Name Value Range Interpretation Code Description Data Kala rce(s) Supporting Document(s ) UNK > 60 <content [facility] styleCode="Bold"> Medical Cent er EGFR </content>146 GFR<content styleCode="Italic s"> (> 60 GFR)</content> ID Date Data Source Coagulation 07/24/2019 08:50:00 AM [facility] ical Center Rout.[id number] EDT Name Value Range Interpretation Description Data Sup porting Code Source(s) Document(s ) UNK 9.0-13.0 <content [facility] styleCode="Bold" Yeimi >Protime Medical </content>11.2 Center SEC<content styleCode="Itali cs"> (9.0-13.0 SEC)</content> INR in 0.80-1.2 <content [facility] Platelet poor 0 styleCode="Bold" Yeimi plasma by >INR Medical Coagulation </content>1.01 Center assay #<content styleCode="Itali cs"> (0.80-1.20 #)</content> aPTT in 25.1-36. <content [facility] Platelet poor 5 styleCode="Bold" [facility] plasma by >Partial Medical Coagulation Thromboplastin Center assay Time </content>28.5 SEC<content styleCode="Itali cs"> (25.1-36.5 SEC)</content> ID Date Data Source CARMENZA.[id number] 07/24/2019 08:50:00 AM EDT [facility] -0400 Name Value Range Interpretation Description Data Sup porting Code Source(s) Document(s ) UNK >= 1.0 Below low normal <content [facility] styleCode="Sarika Yeimi d">AG Ratio Medical </content>0.9 Center L<content styleCode="Erin lics"> (>= 1.0 )</content> UNK 2.3-3.5 <content [facility] styleCode="Sarika Yeimi d">Globulin Medical </content>2.7 Center G/DL<content styleCode="Erin lics"> (2.3-3.5 G/DL)</content > Magnesium 1.6-2.3 <content [facility] [Mass/volume] styleCode="Sarika [place] in Serum or d">Magnesium Medical Plasma </content>1.7 Center MG/DL<content styleCode="Erin lics"> (1.6-2.3 MG/DL)</conten t> Protein 6.3-8.2 Below low normal <content [facility] [Mass/volume] styleCode="Sarika [place] in Serum or d">Total Medical Plasma Protein Center </content>5.2 G/DL L<content styleCode="Erin lics"> (6.3-8.2 G/DL)</content > Phosphate 2.5-4.5 Below low normal <content [facility] [Mass/volume] styleCode="Sarika Yeimi in Serum or d">Phosphorus Medical Plasma </content>2.1 Center MG/DL L<content styleCode="Erin lics"> (2.5-4.5 MG/DL)</conten t> ID Date Data Source [facility].[id number] 07/24/2019 08:50:00 AM EDT [facility] Name Value Range Interpretation Description Data Sup porting Code Source(s) Document(s ) Sodium 137-145 <content [facility] [Moles/volume] in styleCode="Bold"> [facility] Serum or Plasma Sodium Medical </content>141 Center MEQ/L<content styleCode="Italic s"> (137-145 MEQ/L)</content> Potassium 3.5-5.3 <content [facility] [Moles/volume] in styleCode="Bold"> [facility] Serum or Plasma Potassium Medical </content>3.7 Center MEQ/L<content styleCode="Italic s"> (3.5-5.3 MEQ/L)</content> Chloride 98-107 <content [facility] [Moles/volume] in styleCode="Bold"> [facility] Serum or Plasma Chloride Medical </content>104 Center MEQ/L<content styleCode="Italic s"> (98-107 MEQ/L)</content> Carbon dioxide, 22-30 Above high <content [facility] total normal styleCode="Bold"> Yeimi [Moles/volume] in Carbon Dioxide Medical Serum or Plasma </content>35 Center MEQ/L H<content styleCode="Italic s"> (22-30 MEQ/L)</content> Creatinine 0.5-1.3 <content [facility] [Mass/volume] in styleCode="Bold"> Charan hs Serum or Plasma Creatinine Medical </content>0.6 Center MG/DL<content styleCode="Italic s"> (0.5-1.3 MG/DL)</content> Glucose 74-106 <content [facility] [Mass/volume] in styleCode="Bold"> Charan hs Serum or Plasma Glucose Medical </content>94 Center MG/DL<content styleCode="Italic s"> (74-106 MG/DL)</content> UNK 9-20 <content [facility] styleCode="Bold"> Ye[facility] BUN </content>18 Medical MG/DL<content Center styleCode="Italic s"> (9-20 MG/DL)</content> Calcium 8.4-10. <content [facility] [Mass/volume] in 2 styleCode="Bold"> Charan hs Serum or Plasma Calcium Medical </content>8.6 Center MG/DL<content styleCode="Italic s"> (8.4-10.2 MG/DL)</content> UNK > 60 <content [facility] styleCode="Bold"> [facility] EGFR Medical </content>146 Center GFR<content styleCode="Italic s"> (> 60 GFR)</content> Aspartate 17-59 <content [facility] aminotransferase styleCode="Bold"> [facility] hs [Enzymatic Aspartate Medical activity/volume] Aminotransferase Center in Serum or Plasma (AST) </content>31 IU/L<content styleCode="Italic s"> (17-59 IU/L)</content> Albumin 3.5-5.0 Below low <content [facility] [Mass/volume] in normal styleCode="Bold"> Charan hs Serum or Plasma Albumin Medical </content>2.5 Center G/DL L<content styleCode="Italic s"> (3.5-5.0 G/DL)</content> Bilirubin.total 0.2-1.3 <content [facility] [Mass/volume] in styleCode="Bold"> Charan hs Serum or Plasma Bilirubin Total Medical </content>0.5 Center MG/DL<content styleCode="Italic s"> (0.2-1.3 MG/DL)</content> Alanine 7-50 <content [facility] aminotransferase styleCode="Bold"> [facility] [Enzymatic Alanine Medical activity/volume] Aminotransferase Center in Serum or Plasma (ALT) </content>13 IU/L<content styleCode="Italic s"> (7-50 IU/L)</content> Alkaline 38-126 <content [facility] phosphatase styleCode="Bold"> Yeimi [Enzymatic Alkaline Medical activity/volume] Phosphatase (ALP) Cente r in Serum or Plasma </content>55 IU/L<content styleCode="Italic s"> (38-126 IU/L)</content> ID Date Data Source Liver 07/23/2019 06:50:00 AM EDT [facility] Profile.[id number] Name Value Range Interpretation Description Data Sup porting Code Source(s) Document(s ) Alanine 7-50 <content [facility] aminotransferase styleCode="Bold"> Charan hs [Enzymatic Alanine Medical activity/volume] Aminotransferase Center in Serum or Plasma (ALT) </content>12 IU/L<content styleCode="Italic s"> (7-50 IU/L)</content> Aspartate 17-59 <content [facility] aminotransferase styleCode="Bold"> Charan hs [Enzymatic Aspartate Medical activity/volume] Aminotransferase Center in Serum or Plasma (AST) </content>28 IU/L<content styleCode="Italic s"> (17-59 IU/L)</content> Bilirubin.total 0.2-1.3 <content [facility] [Mass/volume] in styleCode="Bold"> Charan hs Serum or Plasma Bilirubin Total Medical </content>0.2 Center MG/DL<content styleCode="Italic s"> (0.2-1.3 MG/DL)</content> Alkaline 38-126 <content [facility] phosphatase styleCode="Bold"> [facility] [Enzymatic Alkaline Medical activity/volume] Phosphatase (ALP) Cente r in Serum or Plasma </content>69 IU/L<content styleCode="Italic s"> (38-126 IU/L)</content> Albumin 3.5-5.0 Below low <content [facility] [Mass/volume] in normal styleCode="Bold"> Charan hs Serum or Plasma Albumin Medical </content>2.3 Center G/DL L<content styleCode="Italic s"> (3.5-5.0 G/DL)</content> ID Date Data Source HematologyRou.[id number] 07/23/2019 06:50:00 AM EDT [facility] 0400 Name Value Range Interpretation Description Data Sup porting Code Source(s) Document(s ) Erythrocytes 4.4-5.9 Below low normal <content [facility] [#/volume] in styleCode="Bold [facility] Blood by ">Red Blood Medical Automated count Cell Count Center </content>4.02 MCUMM L<content styleCode="Ital ics"> (4.4-5.9 MCUMM)</content > Leukocytes 4.4-11.0 Above high <content [facility] [#/volume] in normal styleCode="Bold [facility] Blood by ">White Blood Medical Automated count Cell Count Center </content>12.89 KCUMM H<content styleCode="Ital ics"> (4.4-11.0 KCUMM)</content > Hematocrit 41.0-53. Below low normal <content [facility] [Volume 0 styleCode="Bold Ye[facility] Fraction] of ">Hematocrit Medical Blood by </content>33.9 Center Automated count % L<content styleCode="Ital ics"> (41.0-53.0 %)</content> Hemoglobin 13.5-17. Below low normal <content [facility] [Mass/volume] in 5 styleCode="Bold [facility] Blood ">Hemoglobin Medical </content>10.3 Center G/DL L<content styleCode="Ital ics"> (13.5-17.5 G/DL)</content> Erythrocyte mean 32.0-37. Below low normal <content [facility] corpuscular 0 styleCode="Bold Ye[facility] hemoglobin ">Mean Corpus. Medical concentration Hgb Center [Mass/volume] by Concentration Automated count (MCHC) </content>30.4 G/DL L<content styleCode="Ital ics"> (32.0-37.0 G/DL)</content> Erythrocyte mean 26.0-34. Below low normal <content [facility] corpuscular 0 styleCode="Bold [facility] hemoglobin ">Mean Medical [Entitic mass] Corposcular Center by Automated Hemoglobin count </content>25.6 PG L<content styleCode="Ital ics"> (26.0-34.0 PG)</content> Erythrocyte mean 80.0-100 <content [facility] corpuscular .0 styleCode="Bold [facility] volume [Entitic ">Mean Medical volume] by Corpuscular Center Automated count Volume </content>84.3 FL<content styleCode="Ital ics"> (80.0-100.0 FL)</content> Platelets 130-400 <content [facility] [#/volume] in styleCode="Bold [facility] Blood by ">Platelet Medical Automated count Count Center </content>209 KCUMM<content styleCode="Ital ics"> (130-400 KCUMM)</content > Erythrocyte 11.5-14. Above high <content [facility] distribution 5 normal styleCode="Bold [facility] width [Ratio] by ">Red Cell Medical Automated count Distribution Center Width </content>19.6 % H<content styleCode="Ital ics"> (11.5-14.5 %)</content> UNK 1.6-7.3 Above high <content [facility] normal styleCode="Bold [facility] ">Neutrophil Medical Count Center </content>11.89 KCUMM H<content styleCode="Ital ics"> (1.6-7.3 KCUMM)</content > Platelet mean 8.0-11.0 <content [facility] volume [Entitic styleCode="Bold Ye[facility] volume] in Blood ">Mean Platelet Medical by Automated Volume Center count </content>10.2 FL<content styleCode="Ital ics"> (8.0-11.0 FL)</content> Neutrophils 36-66 Above high <content [facility] [#/volume] in normal styleCode="Bold [facility] Blood by ">Neutrophil Medical Automated count </content>92.2 Center % H<content styleCode="Ital ics"> (36-66 %)</content> UNK 1.0-4.8 Below low normal <content Saint styleCode="Bold Yeimi ">Lymphocyte Medical Count Center </content>0.61 KCUMM L<content styleCode="Ital ics"> (1.0-4.8 KCUMM)</content > Lymphocytes 24.0-44. Below low normal <content [facility] [#/volume] in 0 styleCode="Bold [facility] Blood by ">Lymphocyte Medical Automated count </content>4.7 % Center L<content styleCode="Ital ics"> (24.0-44.0 %)</content> Eosinophils 0-5.0 <content [facility] [#/volume] in styleCode="Bold [facility] Blood by ">Eosinophil Medical Automated count </content>0.0 Center %<content styleCode="Ital ics"> (0-5.0 %)</content> UNK 0.2-0.9 <content [facility] styleCode="Bold Yeimi ">Monocyte Medical Count Center </content>0.33 KCUMM<content styleCode="Ital ics"> (0.2-0.9 KCUMM)</content > Monocytes 3.0-10.0 Below low normal <content [facility] [#/volume] in styleCode="Bold [facility] Blood by ">Monocyte Medical Automated count </content>2.6 % Center L<content styleCode="Ital ics"> (3.0-10.0 %)</content> UNK 0.0-0.6 <content Saint styleCode="Bold Yeimi ">Eosinophil Medical Count Center </content>0.00 KCUMM<content styleCode="Ital ics"> (0.0-0.6 KCUMM)</content > Basophils 0.0-1.0 <content [facility] [#/volume] in styleCode="Bold [facility] Blood by ">Basophil Medical Automated count </content>0.1 Center %<content styleCode="Ital ics"> (0.0-1.0 %)</content> UNK 0.0 <content [facility] styleCode="Bold Yeimi ">Nucleated Red Medical Blood Cell Center Count </content>0.00 KCUMM<content styleCode="Ital ics"> (0.0 KCUMM)</content > UNK 0.0-0.3 <content Saint styleCode="Bold Yeimi ">Basophil Medical Count Center </content>0.01 KCUMM<content styleCode="Ital ics"> (0.0-0.3 KCUMM)</content > UNK 0 <content Saint styleCode="Bold Yeimi ">Nucleated Red Medical Blood Cell Center </content>0.0 /100<content styleCode="Ital ics"> (0 /100)</content> UNK < 1 <content [facility] styleCode="Bold Yeimi ">Immature Medical Granulocyte Center Ratio </content>0.4 %<content styleCode="Ital ics"> (< 1 %)</content> UNK 0-0.1 <content [facility] styleCode="Bold Yeimi ">Immature Medical Granulocyte Center Count </content>0.05 KCUMM<content styleCode="Ital ics"> (0-0.1 KCUMM)</content > ID Date Data Source GFR(Creatinine).[id number] 07/23/2019 06:50:00 AM EDT [facility] 0-0400 Name Value Range Interpretation Code Description Data Kala rce(s) Supporting Document(s ) UNK > 60 <content [facility] styleCode="Bold"> Medical Cent er EGFR </content>146 GFR<content styleCode="Italic s"> (> 60 GFR)</content> ID Date Data Source Coagulation 07/23/2019 06:50:00 AM [facility] ical Center Rout.[id number] EDT Name Value Range Interpretation Description Data Sup porting Code Source(s) Document(s ) UNK 9.0-13.0 <content [facility] styleCode="Bold" Ye[facility] >Protime Medical </content>11.5 Center SEC<content styleCode="Itali cs"> (9.0-13.0 SEC)</content> INR in 0.80-1.2 <content [facility] Platelet poor 0 styleCode="Bold" [facility] plasma by >INR Medical Coagulation </content>1.04 Center assay #<content styleCode="Itali cs"> (0.80-1.20 #)</content> aPTT in 25.1-36. <content [facility] Platelet poor 5 styleCode="Bold" [facility] plasma by >Partial Medical Coagulation Thromboplastin Center assay Time </content>29.5 SEC<content styleCode="Itali cs"> (25.1-36.5 SEC)</content> ID Date Data Source CHMROUTINECCDA.[id number] 07/23/2019 06:50:00 AM EDT [facility] -0400 Name Value Range Interpretation Description Data Sup porting Code Source(s) Document(s ) Magnesium 1.6-2.3 <content Saint [Mass/volume] styleCode="Sarika Yeimi in Serum or d">Magnesium Medical Plasma </content>2.1 Center MG/DL<content styleCode="Erin lics"> (1.6-2.3 MG/DL)</conten t> UNK >= 1.0 Below low normal <content [facility] styleCode="Sarika Yeimi d">AG Ratio Medical </content>0.9 Center L<content styleCode="Erin lics"> (>= 1.0 )</content> UNK 2.3-3.5 <content [facility] styleCode="Sarika Yeimi d">Globulin Medical </content>2.5 Center G/DL<content styleCode="Erin lics"> (2.3-3.5 G/DL)</content > Protein 6.3-8.2 Below low normal <content [facility] [Mass/volume] styleCode="Sarika Yeimi in Serum or d">Total Medical Plasma Protein Center </content>4.8 G/DL L<content styleCode="Erin lics"> (6.3-8.2 G/DL)</content > Phosphate 2.5-4.5 <content [facility] [Mass/volume] styleCode="Sarika Yeimi in Serum or d">Phosphorus Medical Plasma </content>2.5 Center MG/DL<content styleCode="Erin lics"> (2.5-4.5 MG/DL)</conten t> ID Date Data Source [facility].[id number] 07/23/2019 06:50:00 AM EDT [facility] Name Value Range Interpretation Description Data Sup porting Code Source(s) Document(s ) Sodium 137-145 <content [facility] [Moles/volume] in styleCode="Bold"> Wenceslao phs Serum or Plasma Sodium Medical </content>137 Center MEQ/L<content styleCode="Italic s"> (137-145 MEQ/L)</content> Carbon dioxide, 22-30 Above high <content [facility] total normal styleCode="Bold"> Yeimi [Moles/volume] in Carbon Dioxide Medical Serum or Plasma </content>31 Center MEQ/L H<content styleCode="Italic s"> (22-30 MEQ/L)</content> Potassium 3.5-5.3 <content [facility] [Moles/volume] in styleCode="Bold"> Wenceslao phs Serum or Plasma Potassium Medical </content>4.1 Center MEQ/L<content styleCode="Italic s"> (3.5-5.3 MEQ/L)</content> Chloride 98-107 <content [facility] [Moles/volume] in styleCode="Bold"> Wenceslao phs Serum or Plasma Chloride Medical </content>105 Center MEQ/L<content styleCode="Italic s"> (98-107 MEQ/L)</content> UNK 9-20 <content [facility] styleCode="Bold"> [facility] BUN </content>17 Medical MG/DL<content Center styleCode="Italic s"> (9-20 MG/DL)</content> Glucose 74-106 Above high <content [facility] [Mass/volume] in normal styleCode="Bold"> Charan hs Serum or Plasma Glucose Medical </content>168 Center MG/DL H<content styleCode="Italic s"> (74-106 MG/DL)</content> Creatinine 0.5-1.3 <content [facility] [Mass/volume] in styleCode="Bold"> Charan hs Serum or Plasma Creatinine Medical </content>0.6 Center MG/DL<content styleCode="Italic s"> (0.5-1.3 MG/DL)</content> Alanine 7-50 <content [facility] aminotransferase styleCode="Bold"> Charan hs [Enzymatic Alanine Medical activity/volume] Aminotransferase Center in Serum or Plasma (ALT) </content>12 IU/L<content styleCode="Italic s"> (7-50 IU/L)</content> UNK > 60 <content [facility] styleCode="Bold"> [facility] EGFR Medical </content>146 Center GFR<content styleCode="Italic s"> (> 60 GFR)</content> Calcium 8.4-10. Below low <content [facility] [Mass/volume] in 2 normal styleCode="Bold"> Charan hs Serum or Plasma Calcium Medical </content>8.1 Center MG/DL L<content styleCode="Italic s"> (8.4-10.2 MG/DL)</content> Aspartate 17-59 <content [facility] aminotransferase styleCode="Bold"> Charan hs [Enzymatic Aspartate Medical activity/volume] Aminotransferase Center in Serum or Plasma (AST) </content>28 IU/L<content styleCode="Italic s"> (17-59 IU/L)</content> Albumin 3.5-5.0 Below low <content [facility] [Mass/volume] in normal styleCode="Bold"> Charan hs Serum or Plasma Albumin Medical </content>2.3 Center G/DL L<content styleCode="Italic s"> (3.5-5.0 G/DL)</content> Alkaline 38-126 <content [facility] phosphatase styleCode="Bold"> Yeimi [Enzymatic Alkaline Medical activity/volume] Phosphatase (ALP) Cente r in Serum or Plasma </content>69 IU/L<content styleCode="Italic s"> (38-126 IU/L)</content> Bilirubin.total 0.2-1.3 <content [facility] [Mass/volume] in styleCode="Bold"> Charan hs Serum or Plasma Bilirubin Total Medical </content>0.2 Center MG/DL<content styleCode="Italic s"> (0.2-1.3 MG/DL)</content> ID Date Data Source Liver 07/22/2019 06:30:00 AM EDT [facility] Profile.[id number] Name Value Range Interpretation Description Data Sup porting Code Source(s) Document(s ) Aspartate 17-59 <content [facility] aminotransferase styleCode="Bold"> Charan hs [Enzymatic Aspartate Medical activity/volume] Aminotransferase Center in Serum or Plasma (AST) </content>43 IU/L<content styleCode="Italic s"> (17-59 IU/L)</content> Alkaline 38-126 <content [facility] phosphatase styleCode="Bold"> Yeimi [Enzymatic Alkaline Medical activity/volume] Phosphatase (ALP) Cente r in Serum or Plasma </content>78 IU/L<content styleCode="Italic s"> (38-126 IU/L)</content> Alanine 7-50 <content [facility] aminotransferase styleCode="Bold"> Charan hs [Enzymatic Alanine Medical activity/volume] Aminotransferase Center in Serum or Plasma (ALT) </content>14 IU/L<content styleCode="Italic s"> (7-50 IU/L)</content> Albumin 3.5-5.0 Below low <content [facility] [Mass/volume] in normal styleCode="Bold"> Charan hs Serum or Plasma Albumin Medical </content>2.3 Center G/DL L<content styleCode="Italic s"> (3.5-5.0 G/DL)</content> Bilirubin.total 0.2-1.3 <content [facility] [Mass/volume] in styleCode="Bold"> Charan hs Serum or Plasma Bilirubin Total Medical </content>0.2 Center MG/DL<content styleCode="Italic s"> (0.2-1.3 MG/DL)</content> ID Date Data Source Coagulation 07/22/2019 06:30:00 AM [facility] Rout.[id number] EDT Name Value Range Interpretation Description Data Sup porting Code Source(s) Document(s ) UNK 9.0-13.0 Above high normal <content [facility] styleCode="Bold" Ye[facility] >Protime Medical </content>13.6 Center SEC H<content styleCode="Itali cs"> (9.0-13.0 SEC)</content> aPTT in 25.1-36. <content [facility] Platelet poor 5 styleCode="Bold" [facility] plasma by >Partial Medical Coagulation Thromboplastin Center assay Time </content>33.9 SEC<content styleCode="Itali cs"> (25.1-36.5 SEC)</content> INR in 0.80-1.2 Above high normal <content [facility] Platelet poor 0 styleCode="Bold" [facility] plasma by >INR Medical Coagulation </content>1.23 # Center assay H<content styleCode="Itali cs"> (0.80-1.20 #)</content> ID Date Data Source [employer]iacMarkers.[id number] 07/22/2019 06:30:00 AM EDT [facility] -0400 Name Value Range Interpretation Description Data Sup porting Code Source(s) Document(s ) Troponin < 0.034 Above upper panic <content Saint I.cardiac limits styleCode="Bold Yeimi [Mass/volume ">Troponin I Medical ] in Serum </content><cont Center or Plasma ent styleCode="Bold ">2.03 NG/ML HH</content><co ntent styleCode="Ital ics"> (< 0.034 NG/ML)</content > ID Date Data Source CardiacMarkers.[id number] 07/21/2019 08:09:00 PM EDT [facility] -0400 Name Value Range Interpretation Description Data Sup porting Code Source(s) Document(s ) Troponin < 0.034 Above upper panic <content [facility] I.cardiac limits styleCode="Bold Yeimi [Mass/volume ">Troponin I Medical ] in Serum </content><cont Center or Plasma ent styleCode="Bold ">3.08 NG/ML HH</content><co ntent styleCode="Ital ics"> (< 0.034 NG/ML)</content > ID Date Data Source Microbiology.[id number] 07/21/2019 06:05:00 PM EDT [facility] 400 Name Value Range Interpretation Code Description Data Kala rce(s) Supporting Document(s ) UNK <item><content [facility] styleCode="Bold"> Medical Cent er Culture Status </content>
<t able><tbody><tr>< td>Specimen Number:</td><td>[id number]</td></tr ><tr><td>Sample Collection Date/Time: </td><td> 0 6:05 PM</td></tr><tr>< td>Specimen Source:</td><td>Jose L STEVENS</td></tr ><tr><td>Lanie armijo 1:</td><td>SPECIM EN SENT TO [facility] DEPARTMENT OF </td></tr><tr><td >Culture Status:</td><td>P reliminary </td></tr><tr><td >Acid Fast Stain / Culture:</td><td> Collection Plate Date: 07/22/2019 16:01 </td></tr></tbody ></table></item> ID Date Data Source CardiacMarkers.[id number] 07/21/2019 01:20:00 PM EDT [facility] -0400 Name Value Range Interpretation Description Data Sup porting Code Source(s) Document(s ) Troponin < 0.034 Above upper panic <content [facility] I.cardiac limits styleCode="Bold Ye[facility] [Mass/volume ">Troponin I Medical ] in Serum </content><cont Center or Plasma ent styleCode="Bold ">4.43 NG/ML HH</content><co ntent styleCode="Ital ics"> (< 0.034 NG/ML)</content > ID Date Data Source LIPID.[id number] 07/21/2019 06:10:[address] [facility] Name Value Range Interpretation Description Data Sup porting Code Source(s) Document(s ) Triglyceride < 150 <content [facility] [Mass/volume] in styleCode="Sarika Yeimi Serum or Plasma d">Triglycerid Medical es Center </content>109 MG/DL<content styleCode="Erin lics"> (< 150 MG/DL)</conten t> Cholesterol -<200 <content [facility] [Mass/volume] in styleCode="Sarika Yeimi Serum or Plasma d">Cholesterol Medical </content>57 Center MG/DL<content styleCode="Erin lics"> (-<200 MG/DL)</conten t> UNK < 100 <content Saint styleCode="Sarika Yeimi d">LDL-Cholest Medical magda Center </content>11 MG/DL<content styleCode="Erin lics"> (< 100 MG/DL)</conten t> UNK > 60 Below low normal <content Saint styleCode="Sarika Yeimi d">HDL- Medical Cholesterol Center </content>24 MG/DL L<content styleCode="Erin lics"> (> 60 MG/DL)</conten t> ID Date Data Source CardiacMarkers.[id number] 07/21/2019 06:10:00 AM EDT [facility] -0400 Name Value Range Interpretation Description Data Sup porting Code Source(s) Document(s ) Troponin < 0.034 Above upper panic <content [facility] I.cardiac limits styleCode="Bold Yeimi [Mass/volume ">Troponin I Medical ] in Serum </content><cont Center or Plasma ent styleCode="Bold ">5.77 NG/ML HH</content><co ntent styleCode="Ital ics"> (< 0.034 NG/ML)</content > ID Date Data Source HematologyRou.[id number] 07/21/2019 06:10:00 AM EDT [facility] 0400 Name Value Range Interpretation Description Data Sup porting Code Source(s) Document(s ) Hemoglobin 13.5-17. Below low normal <content [facility] [Mass/volume] in 5 styleCode="Bold Ye[facility] Blood ">Hemoglobin Medical </content>11.9 Center G/DL L<content styleCode="Ital ics"> (13.5-17.5 G/DL)</content> Erythrocytes 4.4-5.9 <content [facility] [#/volume] in styleCode="Bold [facility] Blood by ">Red Blood Medical Automated count Cell Count Center </content>4.53 MCUMM<content styleCode="Ital ics"> (4.4-5.9 MCUMM)</content > Hematocrit 41.0-53. Below low normal <content [facility] [Volume 0 styleCode="Bold Ye[facility] Fraction] of ">Hematocrit Medical Blood by </content>39.8 Center Automated count % L<content styleCode="Ital ics"> (41.0-53.0 %)</content> Erythrocyte mean 80.0-100 <content [facility] corpuscular .0 styleCode="Bold [facility] volume [Entitic ">Mean Medical volume] by Corpuscular Center Automated count Volume </content>87.9 FL<content styleCode="Ital ics"> (80.0-100.0 FL)</content> Leukocytes 4.4-11.0 Above high <content [facility] [#/volume] in normal styleCode="Bold [facility] Blood by ">White Blood Medical Automated count Cell Count Center </content>20.06 KCUMM H<content styleCode="Ital ics"> (4.4-11.0 KCUMM)</content > Erythrocyte mean 26.0-34. <content [facility] corpuscular 0 styleCode="Bold Ye[facility] hemoglobin ">Mean Medical [Entitic mass] Corposcular Center by Automated Hemoglobin count </content>26.3 PG<content styleCode="Ital ics"> (26.0-34.0 PG)</content> Platelets 130-400 <content [facility] [#/volume] in styleCode="Bold [facility] Blood by ">Platelet Medical Automated count Count Center </content>245 KCUMM<content styleCode="Ital ics"> (130-400 KCUMM)</content > Erythrocyte 11.5-14. Above high <content [facility] distribution 5 normal styleCode="Bold Ye[facility] width [Ratio] by ">Red Cell Medical Automated count Distribution Center Width </content>19.0 % H<content styleCode="Ital ics"> (11.5-14.5 %)</content> Erythrocyte mean 32.0-37. Below low normal <content [facility] corpuscular 0 styleCode="Bold Yeimi hemoglobin ">Mean Corpus. Medical concentration Hgb Center [Mass/volume] by Concentration Automated count (MCHC) </content>29.9 G/DL L<content styleCode="Ital ics"> (32.0-37.0 G/DL)</content> UNK 0.0 <content Saint styleCode="Bold Ye[facility] ">Nucleated Red Medical Blood Cell Center Count </content>0.00 KCUMM<content styleCode="Ital ics"> (0.0 KCUMM)</content > UNK 0 <content Saint styleCode="Bold Yeimi ">Nucleated Red Medical Blood Cell Center </content>0.0 /100<content styleCode="Ital ics"> (0 /100)</content> Platelet mean 8.0-11.0 <content [facility] volume [Entitic styleCode="Bold Yeimi volume] in Blood ">Mean Platelet Medical by Automated Volume Center count </content>9.8 FL<content styleCode="Ital ics"> (8.0-11.0 FL)</content> ID Date Data Source Coagulation 07/21/2019 06:10:00 AM [facility] ical Center Rout.[id number] EDT Name Value Range Interpretation Description Data Sup porting Code Source(s) Document(s ) INR in 0.80-1.2 Above high normal <content [facility] Platelet poor 0 styleCode="Bold" [facility] plasma by >INR Medical Coagulation </content>1.33 # Center assay H<content styleCode="Itali cs"> (0.80-1.20 #)</content> UNK 9.0-13.0 Above high normal <content [facility] styleCode="Bold" Ye[facility] >Protime Medical </content>14.8 Center SEC H<content styleCode="Itali cs"> (9.0-13.0 SEC)</content> aPTT in 25.1-36. <content [facility] Platelet poor 5 styleCode="Bold" [facility] plasma by >Partial Medical Coagulation Thromboplastin Center assay Time </content>33.7 SEC<content styleCode="Itali cs"> (25.1-36.5 SEC)</content> ID Date Data Source CHMROUTINECCDA.[id number] 07/21/2019 06:10:00 AM EDT [facility] -0400 Name Value Range Interpretation Description Data Sup porting Code Source(s) Document(s ) Lactate 0.7-2.0 <content [facility] [Mass/volume] styleCode="Sarika Yeimi in Serum or d">Lactic Acid Medical Plasma </content>1.9 Center MMOLL<content styleCode="Erin lics"> (0.7-2.0 MMOLL)</conten t> UNK 4.2-5.8 Above high normal <content [facility] styleCode="Sarika Yeimi d">Hemoglobin Medical A1C Center </content>6.6 % H<content styleCode="Erin lics"> (4.2-5.8 %)</content> Magnesium 1.6-2.3 <content [facility] [Mass/volume] styleCode="Sarika Yeimi in Serum or d">Magnesium Medical Plasma </content>1.6 Center MG/DL<content styleCode="Erin lics"> (1.6-2.3 MG/DL)</conten t> Phosphate 2.5-4.5 <content [facility] [Mass/volume] styleCode="Sarika Yeimi in Serum or d">Phosphorus Medical Plasma </content>3.4 Center MG/DL<content styleCode="Erin lics"> (2.5-4.5 MG/DL)</conten t> ID Date Data Source Urinalysis.[id number] 07/20/2019 09:43:00 PM EDT [facility] 0 Name Value Range Interpretation Code Description Data Kala rce(s) Supporting Document(s ) UNK 22-328 <content [facility] Jalloh styleCode="Bold"> Medical Cent er Creatinine, Random Urine </content>193.7 MG/DL<content styleCode="Italic s"> (22-328 MG/DL)</content> UNK 30-90 Below low normal <content [facility] styleCode="Bold"> Medical Cent er Sodium, Random Urine </content>12 MEQ/L L<content styleCode="Italic s"> (30-90 MEQ/L)</content> ID Date Data Source CardiacMarkers.[id number] 07/20/2019 05:45:00 PM EDT [facility] -0400 Name Value Range Interpretation Description Data Sup porting Code Source(s) Document(s ) Troponin < 0.034 Above upper panic <content [facility] I.cardiac limits styleCode="Bold Yeimi [Mass/volume ">Troponin I Medical ] in Serum </content><cont Center or Plasma ent styleCode="Bold ">1.33 NG/ML HH</content><co ntent styleCode="Ital ics"> (< 0.034 NG/ML)</content > ID Date Data Source CHMROUTINECCDA.[id number] 07/20/2019 05:45:00 PM EDT [facility] -0400 Name Value Range Interpretation Description Data Sup porting Code Source(s) Document(s ) Lactate 0.7-2.0 <content [facility] [Mass/volum styleCode="Bold Medical e] in Serum ">Lactic Acid Center or Plasma </content>1.7 MMOLL<content styleCode="Ital ics"> (0.7-2.0 MMOLL)</content > ID Date Data Source Urinalysis.[id number] 07/20/2019 02:52:00 PM EDT [facility] 0 Name Value Range Interpretation Description Data Sup porting Code Source(s) Document(s ) UNK CLEAR <content [facility] styleCode="Sarika Yeimi d">Urine Medical Clarity Center </content>HAZY <content styleCode="Erin lics"> (CLEAR )</content> Color of Urine YELLOW <content Saint styleCode="Sarika Yeimi d">[facility] Urine [facility] </content>YELL OW <content styleCode="Erin lics"> (YELLOW )</content> UNK NEGATIVE <content [facility] styleCode="Sarika Yeimi d">Urine Medical Bilirubin Center </content>SMAL L <content styleCode="Erin lics"> (NEGATIVE )</content> Glucose NEGATIVE <content [facility] [Mass/volume] styleCode="Sarika Yeimi in Urine by d">Urine Medical Test strip Glucose Center </content>NEGA TIVE MG/DL<content styleCode="Erin lics"> (NEGATIVE MG/DL)</conten t> Ketones NEGATIVE <content [facility] [Mass/volume] styleCode="Sarika Yeimi in Urine by d">Urine Medical Test strip Ketone Center </content>NEGA TIVE MG/DL<content styleCode="Erin lics"> (NEGATIVE MG/DL)</conten t> Hemoglobin NEGATIVE <content [facility] [Presence] in styleCode="Sarika Yeimi Urine by Test d">Urine Blood Medical strip </content>NEGA Center TIVE <content styleCode="Erin lics"> (NEGATIVE )</content> Specific 1.015-1.02 <content [facility] gravity of 5 styleCode="Sarika Yeimi Urine by Test d">Urine Medical strip Specific Center [place] </content>1.02 5 <content styleCode="Erin lics"> (1.015-1.025 )</content> pH of Urine by 4.5-8.0 <content [facility] Test strip styleCode="Sarika Yeimi d">Urine pH Medical </content>6.0 Center <content styleCode="Erin lics"> (4.5-8.0 )</content> Protein NEGATIVE <content [facility] [Mass/volume] styleCode="Sarika Yeimi in Urine by d">Urine Medical Test strip Protein Center </content>TRAC E MG/DL<content styleCode="Erin lics"> (NEGATIVE MG/DL)</conten t> Nitrite NEGATIVE <content [facility] [Presence] in styleCode="Sarika [place] Urine by Test d">Urine Medical strip Nitrite Center </content>NEGA TIVE <content styleCode="Erin lics"> (NEGATIVE )</content> Urobilinogen 0.2-1.0 <content [facility] [Units/volume] styleCode="Sarika Yeimi in Urine by d">Urine Medical Test strip Urobilinogen Center </content>0.2 MG/DL<content styleCode="Erin lics"> (0.2-1.0 MG/DL)</conten t> UNK 0-3 <content [facility] styleCode="Sarika Yeimi d">Urine White Medical Blood Cell Center </content>0-3 HPF<content styleCode="Erin lics"> (0-3 HPF)</content> UNK 0-3 <content Saint styleCode="Sarika Yeimi d">Urine Red Medical Blood Cell Center </content>0-3 HPF<content styleCode="Erin lics"> (0-3 HPF)</content> Leukocyte NEGATIVE <content Saint esterase styleCode="Sarika Yeimi [Presence] in d">Urine Medical Urine by Test Leukocyte Center strip </content>NEGA TIVE <content styleCode="Erin lics"> (NEGATIVE )</content> UNK NONE SEEN <content Saint styleCode="Sarika Yeimi d">Epithelial Medical Cell Center </content>2-5 HPF<content styleCode="Erin lics"> (NONE SEEN HPF)</content> UNK NEGATIVE <content Saint styleCode="Sarika Yeimi d">Urine Medical Bacteria Center </content>FEW HPF<content styleCode="Erin lics"> (NEGATIVE HPF)</content> UNK NONE SEEN <content styleCode="Sarika [place] d">Urine Mucus Medical </content>MODE Center RATE HPF<content styleCode="Erin lics"> (NONE SEEN HPF)</content> ID Date Data Source CHMROUTINECCDA.[id number] 07/20/2019 02:52:00 PM EDT [facility] -0400 Name Value Range Interpretation Description Data Sup porting Code Source(s) Document(s ) Cannabinoids <content Saint [Presence] in styleCode="Sarika [facility] Urine by Screen d">Cannabinoid Medical method >50 ng/mL s Center </content>NEGA TIVE NG/ML (Reference Range: not available)<br/ > ID Date Data Source Microbiology.[id number] 07/20/2019 02:20:00 PM EDT [facility] 400 Name Value Range Interpretation Code Description Data Kala rce(s) Supporting Document(s ) UNK <item><content [facility] styleCode="Bold"> Medical Cent er Culture Status </content>
<t able><tbody><tr>< td>Specimen Number:</td><td>[id number]</td></tr ><tr><td>Sample Collection Date/Time: </td><td> 0 2:20 PM</td></tr><tr>< td>Specimen Source:</td><td>B LOOD</td></tr><tr ><td>Culture Report:</td><td>N O GROWTH AFTER 48 HOURS </td></tr><tr><td >Culture Status:</td><td>P reliminary </td></tr><tr><td >Blood Culture:</td><td> Collection Plate Date: 07/20/2019 14:35 </td></tr></tbody ></table></item> UNK <item><content [facility] styleCode="Bold"> Medical Cent er Culture Report </content>
<t able><tbody><tr>< td>Specimen Number:</td><td>[id number]</td></tr ><tr><td>Sample Collection Date/Time: </td><td> 0 2:20 PM</td></tr><tr>< td>Specimen Source:</td><td>B LOOD</td></tr><tr ><td>Blood Culture:</td><td> Collection Plate Date: 07/20/2019 14:35 </td></tr><tr><td >Culture Status:</td><td>P reliminary </td></tr><tr><td >Culture Report:</td><td>N O GROWTH AFTER 48 HOURS </td></tr></tbody ></table></item> ID Date Data Source CHMROUTINECCDA.[id number] 07/20/2019 02:20:00 PM EDT [facility] -0400 Name Value Range Interpretation Description Data Sup porting Code Source(s) Document(s ) Lactate 0.7-2.0 Above upper panic <content [place] s [Mass/volum limits styleCode="Bold Medical e] in Serum ">Lactic Acid Center or Plasma </content><cont ent styleCode="Bold ">2.2 MMOLL HH</content><co ntent styleCode="Ital ics"> (0.7-2.0 MMOLL)</content > ID Date Data Source Liver 07/20/2019 02:05:00 PM EDT [facility] Profile.[id number] Name Value Range Interpretation Description Data Sup porting Code Source(s) Document(s ) Aspartate 17-59 <content [facility] aminotransferase styleCode="Bold"> Charan hs [Enzymatic Aspartate Medical activity/volume] Aminotransferase Center in Serum or Plasma (AST) </content>28 IU/L<content styleCode="Italic s"> (17-59 IU/L)</content> Alkaline 38-126 <content [facility] phosphatase styleCode="Bold"> Yeimi [Enzymatic Alkaline Medical activity/volume] Phosphatase (ALP) Cente r in Serum or Plasma </content>61 IU/L<content styleCode="Italic s"> (38-126 IU/L)</content> Alanine 7-50 <content [facility] aminotransferase styleCode="Bold"> Charan hs [Enzymatic Alanine Medical activity/volume] Aminotransferase Center in Serum or Plasma (ALT) </content>12 IU/L<content styleCode="Italic s"> (7-50 IU/L)</content> Bilirubin.total 0.2-1.3 <content [facility] [Mass/volume] in styleCode="Bold"> Charan hs Serum or Plasma Bilirubin Total Medical </content>0.4 Center MG/DL<content styleCode="Italic s"> (0.2-1.3 MG/DL)</content> Albumin 3.5-5.0 Below low <content [facility] [Mass/volume] in normal styleCode="Bold"> Charan hs Serum or Plasma Albumin Medical </content>3.0 Center G/DL L<content styleCode="Italic s"> (3.5-5.0 G/DL)</content> ID Date Data Source HematologyRou.[id number] 07/20/2019 02:05:00 PM EDT [facility] 0400 Name Value Range Interpretation Description Data Sup porting Code Source(s) Document(s ) Leukocytes 4.4-11.0 <content Saint [#/volume] in styleCode="Bold Yeimi Blood by ">White Blood Medical Automated count Cell Count Center </content>9.38 KCUMM<content styleCode="Ital ics"> (4.4-11.0 KCUMM)</content > Hemoglobin 13.5-17. Below low normal <content [facility] [Mass/volume] in 5 styleCode="Bold Yeimi Blood ">Hemoglobin Medical </content>13.3 Center G/DL L<content styleCode="Ital ics"> (13.5-17.5 G/DL)</content> Erythrocytes 4.4-5.9 <content Saint [#/volume] in styleCode="Bold Yeimi Blood by ">Red Blood Medical Automated count Cell Count Center </content>5.10 MCUMM<content styleCode="Ital ics"> (4.4-5.9 MCUMM)</content > Hematocrit 41.0-53. <content Saint [Volume 0 styleCode="Bold Yeimi Fraction] of ">Hematocrit Medical Blood by </content>45.2 Center Automated count %<content styleCode="Ital ics"> (41.0-53.0 %)</content> Erythrocyte mean 32.0-37. Below low normal <content [facility] corpuscular 0 styleCode="Bold Yeimi hemoglobin ">Mean Corpus. Medical concentration Hgb Center [Mass/volume] by Concentration Automated count (MCHC) </content>29.4 G/DL L<content styleCode="Ital ics"> (32.0-37.0 G/DL)</content> Erythrocyte mean 80.0-100 <content [facility] corpuscular .0 styleCode="Bold Yeimi volume [Entitic ">Mean Medical volume] by Corpuscular Center Automated count Volume </content>88.6 FL<content styleCode="Ital ics"> (80.0-100.0 FL)</content> Erythrocyte mean 26.0-34. <content [facility] corpuscular 0 styleCode="Bold Yeimi hemoglobin ">Mean Medical [Entitic mass] Corposcular Center by Automated Hemoglobin count </content>26.1 PG<content styleCode="Ital ics"> (26.0-34.0 PG)</content> Platelet mean 8.0-11.0 <content [facility] volume [Entitic styleCode="Bold Yeimi volume] in Blood ">Mean Platelet Medical by Automated Volume Center count </content>9.6 FL<content styleCode="Ital ics"> (8.0-11.0 FL)</content> Platelets 130-400 <content Saint [#/volume] in styleCode="Bold Yeimi Blood by ">Platelet Medical Automated count Count Center </content>230 KCUMM<content styleCode="Ital ics"> (130-400 KCUMM)</content > Erythrocyte 11.5-14. Above high <content [facility] distribution 5 normal styleCode="Bold Yeimi width [Ratio] by ">Red Cell Medical Automated count Distribution Center Width </content>19.7 % H<content styleCode="Ital ics"> (11.5-14.5 %)</content> UNK 1.6-7.3 Above high <content Saint normal styleCode="Bold Yeimi ">Neutrophil Medical Count Center </content>7.69 KCUMM H<content styleCode="Ital ics"> (1.6-7.3 KCUMM)</content > Neutrophils 36-66 Above high <content Saint [#/volume] in normal styleCode="Bold Yeimi Blood by ">Neutrophil Medical Automated count </content>81.9 Center % H<content styleCode="Ital ics"> (36-66 %)</content> UNK 1.0-4.8 Below low normal <content Saint styleCode="Bold Yeimi ">Lymphocyte Medical Count Center </content>0.39 KCUMM L<content styleCode="Ital ics"> (1.0-4.8 KCUMM)</content > Monocytes 3.0-10.0 Above high <content Saint [#/volume] in normal styleCode="Bold Yeimi Blood by ">Monocyte Medical Automated count </content>12.8 Center % H<content styleCode="Ital ics"> (3.0-10.0 %)</content> Lymphocytes 24.0-44. Below low normal <content Saint [#/volume] in 0 styleCode="Bold Yeimi Blood by ">Lymphocyte Medical Automated count </content>4.2 % Center L<content styleCode="Ital ics"> (24.0-44.0 %)</content> UNK 0.2-0.9 Above high <content [facility] normal styleCode="Bold Yeimi ">Monocyte Medical Count Center </content>1.20 KCUMM H<content styleCode="Ital ics"> (0.2-0.9 KCUMM)</content > Eosinophils 0-5.0 <content Saint [#/volume] in styleCode="Bold Yeimi Blood by ">Eosinophil Medical Automated count </content>0.0 Center %<content styleCode="Ital ics"> (0-5.0 %)</content> UNK 0.0-0.6 <content Saint styleCode="Bold Yeimi ">Eosinophil Medical Count Center </content>0.00 KCUMM<content styleCode="Ital ics"> (0.0-0.6 KCUMM)</content > Basophils 0.0-1.0 <content Saint [#/volume] in styleCode="Bold Yeimi Blood by ">Basophil Medical Automated count </content>0.2 Center %<content styleCode="Ital ics"> (0.0-1.0 %)</content> UNK 0.0-0.3 <content Saint styleCode="Bold Yeimi ">Basophil Medical Count Center </content>0.02 KCUMM<content styleCode="Ital ics"> (0.0-0.3 KCUMM)</content > UNK 0.0 Above high <content [facility] normal styleCode="Bold Yeimi ">Nucleated Red Medical Blood Cell Center Count </content>0.03 KCUMM H<content styleCode="Ital ics"> (0.0 KCUMM)</content > UNK 0 Above high <content Saint normal styleCode="Bold Yeimi ">Nucleated Red Medical Blood Cell Center </content>0.3 /100 H<content styleCode="Ital ics"> (0 /100)</content> UNK 0-0.1 <content Saint styleCode="Bold Yeimi ">Immature Medical Granulocyte Center Count </content>0.08 KCUMM<content styleCode="Ital ics"> (0-0.1 KCUMM)</content > UNK 42-75 <content Saint styleCode="Bold Yeimi ">Manual Medical Neutrophil Center count </content>59.0 %<content styleCode="Ital ics"> (42-75 %)</content> UNK < 1 <content Saint styleCode="Bold Yeimi ">Immature Medical Granulocyte Center Ratio </content>0.9 %<content styleCode="Ital ics"> (< 1 %)</content> UNK < 3 Above high <content Saint normal styleCode="Bold Yeimi ">Band-Manual Medical </content>19.0 Center % H<content styleCode="Ital ics"> (< 3 %)</content> UNK 2-9 Above high <content Saint normal styleCode="Bold Yeimi ">Monocyte-Manu Medical al Center </content>11.0 % H<content styleCode="Ital ics"> (2-9 %)</content> UNK 21-51 Below low normal <content Saint styleCode="Bold Yeimi ">Manual Medical Lymphocyte Center Count </content>5.0 % L<content styleCode="Ital ics"> (21-51 %)</content> UNK 0 Above high <content Saint normal styleCode="Bold Yeimi ">Metamyelocyte Medical </content>1.0 % Center H<content styleCode="Ital ics"> (0 %)</content> UNK NONE <content Saint SEEN styleCode="Bold Yeimi ">Platelet Medical Clumping Center </content>SLIGH T <content styleCode="Ital ics"> (NONE SEEN )</content> UNK 0 Above high <content Saint normal styleCode="Bold Yeimi ">Myelocyte Medical </content>2.0 % Center H<content styleCode="Ital ics"> (0 %)</content> UNK 0 Above high <content [facility] normal styleCode="Bold Yeimi ">Plasma Cell Medical </content>1.0 % Center H<content styleCode="Ital ics"> (0 %)</content> UNK NORMAL <content Saint styleCode="Bold Yeimi ">Platelet Medical Estimate Center </content>AFIA L <content styleCode="Ital ics"> (NORMAL )</content> UNK NORMAL <content Saint styleCode="Bold Yeimi ">Poikilocyte Medical </content>[facility] Center T <content styleCode="Ital ics"> (NORMAL )</content> UNK NORMAL <content Saint styleCode="Bold Yeimi ">Polychromasia Medical </content>[facility] T <content styleCode="Ital ics"> (NORMAL )</content> UNK 0 Above high <content [facility] normal styleCode="Bold Yeimi ">Promyelocyte Medical </content>2.0 % Center H<content styleCode="Ital ics"> (0 %)</content> UNK NORMAL <content Saint styleCode="Bold Yeimi ">Schistocyte Medical </content>[facility] T <content styleCode="Ital ics"> (NORMAL )</content> UNK NORMAL <content Saint styleCode="Bold Yeimi ">RBC Medical Morphology Center </content>ABNOR MAL <content styleCode="Ital ics"> (NORMAL )</content> UNK NORMAL <content Saint styleCode="Bold Yeimi ">Spherocyte Medical </content>[facility] T <content styleCode="Ital ics"> (NORMAL )</content> UNK NORMAL <content Saint styleCode="Bold Yeimi ">Hypochromia Medical </content>[facility] T <content styleCode="Ital ics"> (NORMAL )</content> ID Date Data Source GFR(Creatinine).[id number] 07/20/2019 02:05:00 PM EDT [facility] 0-0400 Name Value Range Interpretation Code Description Data Kala rce(s) Supporting Document(s ) UNK > 60 Below low normal <content [facility] styleCode="Bold"> Medical Cent er EGFR </content>39 GFR L<content styleCode="Italic s"> (> 60 GFR)</content> ID Date Data Source Coagulation 07/20/2019 02:05:00 PM [facility] Rout.[id number] EDT Name Value Range Interpretation Description Data Sup porting Code Source(s) Document(s ) UNK 9.0-13.0 <content [facility] styleCode="Bold" Yeimi >Protime Medical </content>12.3 Center SEC<content styleCode="Itali cs"> (9.0-13.0 SEC)</content> aPTT in 25.1-36. <content Saint Platelet poor 5 styleCode="Bold" Yeimi plasma by >Partial Medical Coagulation Thromboplastin Center assay Time </content>31.2 SEC<content styleCode="Itali cs"> (25.1-36.5 SEC)</content> INR in 0.80-1.2 <content [facility] Platelet poor 0 styleCode="Bold" Yeimi plasma by >INR Medical Coagulation </content>1.11 Center assay #<content styleCode="Itali cs"> (0.80-1.20 #)</content> ID Date Data Source CHMROUTINECCDA.[id number] 07/20/2019 02:05:00 PM [facility] Name Value Range Interpretation Description Data Sup porting Code Source(s) Document(s ) UNK >= 1.0 <content [facility] styleCode="Sarika Yeimi d">AG Ratio Medical </content>1.0 Center <content styleCode="Erin lics"> (>= 1.0 )</content> UNK 2.3-3.5 <content Saint styleCode="Sarika Yeimi d">Globulin Medical </content>2.9 Center G/DL<content styleCode="Erin lics"> (2.3-3.5 G/DL)</content > Protein 6.3-8.2 Below low normal <content [facility] [Mass/volume] styleCode="Sarika Yeimi in Serum or d">Total Medical Plasma Protein Center </content>5.9 G/DL L<content styleCode="Erin lics"> (6.3-8.2 G/DL)</content > Natriuretic < 125 Above high normal <content [facility] peptide.B styleCode="Sarika Yeimi prohormone d">NT Pro BNP Medical N-Terminal </content>7810 Center [Mass/volume] PG/ML in Serum or H<content Plasma styleCode="Erin lics"> (< 125 PG/ML)</conten t> ID Date Data Source CardiacMarkers.[id number] 07/20/2019 02:05:00 PM EDT [facility] -0400 Name Value Range Interpretation Description Data Sup porting Code Source(s) Document(s ) Troponin < 0.034 Above upper panic <content Saint I.cardiac limits styleCode="Bold Yeimi [Mass/volume ">Troponin I Medical ] in Serum </content><cont Center or Plasma ent styleCode="Bold ">0.239 NG/ML HH</content><co ntent styleCode="Ital ics"> (< 0.034 NG/ML)</content > ID Date Data Source [facility].[id number] 07/20/2019 02:05:00 PM EDT [facility] Name Value Range Interpretation Description Data Sup porting Code Source(s) Document(s ) Sodium 137-145 Below low <content Saint [Moles/volume] in normal styleCode="Bold"> [facility] Serum or Plasma Sodium Medical </content>136 Center MEQ/L L<content styleCode="Italic s"> (137-145 MEQ/L)</content> Chloride 98-107 <content Saint [Moles/volume] in styleCode="Bold"> [facility] Serum or Plasma Chloride Medical </content>101 Center MEQ/L<content styleCode="Italic s"> (98-107 MEQ/L)</content> Carbon dioxide, 22-30 <content Saint total styleCode="Bold"> Yeimi [Moles/volume] in Carbon Dioxide Medical Serum or Plasma </content>28 Center MEQ/L<content styleCode="Italic s"> (22-30 MEQ/L)</content> Potassium 3.5-5.3 <content Saint [Moles/volume] in styleCode="Bold"> [facility] Serum or Plasma Potassium Medical </content>4.5 Center MEQ/L<content styleCode="Italic s"> (3.5-5.3 MEQ/L)</content> UNK 9-20 Above high <content [facility] normal styleCode="Bold"> Yeimi BUN </content>26 Medical MG/DL H<content Center styleCode="Italic s"> (9-20 MG/DL)</content> Aspartate 17-59 <content [facility] aminotransferase styleCode="Bold"> Charan hs [Enzymatic Aspartate Medical activity/volume] Aminotransferase Center in Serum or Plasma (AST) </content>28 IU/L<content styleCode="Italic s"> (17-59 IU/L)</content> UNK > 60 Below low <content [facility] normal styleCode="Bold"> Yeimi EGFR </content>39 Medical GFR L<content Center styleCode="Italic s"> (> 60 GFR)</content> Creatinine 0.5-1.3 Above high <content Saint [Mass/volume] in normal styleCode="Bold"> Charan hs Serum or Plasma Creatinine Medical </content>1.9 Center MG/DL H<content styleCode="Italic s"> (0.5-1.3 MG/DL)</content> Glucose 74-106 Above high <content Saint [Mass/volume] in normal styleCode="Bold"> Charan hs Serum or Plasma Glucose Medical </content>140 Center MG/DL H<content styleCode="Italic s"> (74-106 MG/DL)</content> Calcium 8.4-10. <content Saint [Mass/volume] in 2 styleCode="Bold"> Charan hs Serum or Plasma Calcium Medical </content>9.1 Center MG/DL<content styleCode="Italic s"> (8.4-10.2 MG/DL)</content> Alanine 7-50 <content [facility] aminotransferase styleCode="Bold"> Charan hs [Enzymatic Alanine Medical activity/volume] Aminotransferase Center in Serum or Plasma (ALT) </content>12 IU/L<content styleCode="Italic s"> (7-50 IU/L)</content> Bilirubin.total 0.2-1.3 <content [facility] [Mass/volume] in styleCode="Bold"> Charan hs Serum or Plasma Bilirubin Total Medical </content>0.4 Center MG/DL<content styleCode="Italic s"> (0.2-1.3 MG/DL)</content> Alkaline 38-126 <content [facility] phosphatase styleCode="Bold"> Yeimi [Enzymatic Alkaline Medical activity/volume] Phosphatase (ALP) Cente r in Serum or Plasma </content>61 IU/L<content styleCode="Italic s"> (38-126 IU/L)</content> Albumin 3.5-5.0 Below low <content Saint [Mass/volume] in normal styleCode="Bold"> Charan hs Serum or Plasma Albumin Medical </content>3.0 Center G/DL L<content styleCode="Italic s"> (3.5-5.0 G/DL)</content> ID Date Data Source Microbiology.[id number] 07/20/2019 02:00:00 PM EDT [facility] 400 Name Value Range Interpretation Code Description Data Kala rce(s) Supporting Document(s ) UNK <item><content [facility] styleCode="Bold"> Medical Cent er Culture Report </content>
<t able><tbody><tr>< td>Specimen Number:</td><td>[id number]</td></tr ><tr><td>Sample Collection Date/Time: </td><td> 0 2:00 PM</td></tr><tr>< td>Specimen Source:</td><td>B LOOD</td></tr><tr ><td>Blood Culture:</td><td> Collection Plate Date: 07/20/2019 14:29 </td></tr><tr><td >Culture Status:</td><td>P reliminary </td></tr><tr><td >Culture Report:</td><td>N O GROWTH AFTER 48 HOURS </td></tr></tbody ></table></item> UNK <item><content [facility] styleCode="Bold"> Medical Cent er Culture Status </content>
<t able><tbody><tr>< td>Specimen Number:</td><td>[id number]</td></tr ><tr><td>Sample Collection Date/Time: </td><td> 0 2:00 PM</td></tr><tr>< td>Specimen Source:</td><td>B LOOD</td></tr><tr ><td>Culture Report:</td><td>N O GROWTH AFTER 48 HOURS </td></tr><tr><td >Culture Status:</td><td>P reliminary </td></tr><tr><td >Blood Culture:</td><td> Collection Plate Date: 07/20/2019 14:29 </td></tr></tbody ></table></item> Procedure Social History Code Duration Value Status Description Data Source(s ) Smoking 07/24/2019 06:14:00 Not Known completed Not Known [facility] EDT Center Smoking 07/21/2019 12:25:00 Not Known completed Not Known [facility] EDT Center Smoking 07/20/2019 08:38:00 Not Known completed Not Known [facility] EDT Center Smoking 07/20/2019 04:28:00 Not Known completed Not Known [facility] EDT Center Smoking 07/20/2019 03:37:00 Daily Smoker completed Daily Smoker [facility] EDT Center Smoking 07/20/2019 01:48:00 Daily Smoker completed Daily Smoker [facility] EDT Center Vital Signs ID Date Data Source UNK Name Value Range Interpretation Code Description Data Source(s) Body temperature 36.388800 36.770440 [facility] Respiratory rate 20 /min 20 /min [facility] Heart rate 102 /min 102 /min [facility] Diastolic blood 75 mm[Hg] 75 mm[Hg] [facility] pressure [facility] Systolic blood 151 mm[Hg] 151 mm[Hg] [facility] pressure Medical Center Oxygen saturation 93 % 93 % [facility] Abelardo hendrix in Arterial blood Medical Center by Pulse oximetry Body weight 90.850382 90.979422 kg [facility] hs Measured kg Medical Center Body temperature 36.967823 36.197733 [facility] Respiratory rate 19 /min 19 /min [facility] Heart rate 117 /min 117 /min [facility] Body height 182.914362 182.667270 cm [facility] Medical Center Diastolic blood 80 mm[Hg] 80 mm[Hg] [facility] pressure Medical Center Systolic blood 143 mm[Hg] 143 mm[Hg] [facility] Medical Center Body mass index 26.97 kg/m2 26.97 kg/m2 [facility] (BMI) [Ratio] Medical [address] [facility] Respiratory rate 24 /min 24 /min [facility] Heart rate 82 /min 82 /min [facility] Diastolic blood 10 mm[Hg] 10 mm[Hg] [facility] Center Systolic blood 138 mm[Hg] 138 mm[Hg] [facility] Center Body temperature 37.286506 37.444347 [facility] Respiratory rate 25 /min 25 /min [facility] Heart rate 81 /min 81 /min [facility] Diastolic blood 71 mm[Hg] 71 mm[Hg] [facility] Center Systolic blood 142 mm[Hg] 142 mm[Hg] [facility] Center Respiratory rate 26 /min 26 /min [facility] Heart rate 80 /min 80 /min [facility] Diastolic blood 72 mm[Hg] 72 mm[Hg] [facility] Center Systolic blood 140 mm[Hg] 140 mm[Hg] [facility] Medical Center Oxygen saturation 97 % 97 % [facility] in Arterial blood Medical Center by Pulse oximetry Body temperature 36.240695 36.158073 [facility] Body temperature 37.157671 37.702984 [facility] Oxygen saturation 95 % 95 % [facility] in Arterial blood Medical Center by Pulse oximetry Oxygen saturation 98 % 98 % [facility] in Arterial blood Medical Center by Pulse oximetry Body weight 97.329221 97.138620 [facility] Oxygen saturation 94 % 94 % [facility] by Pulse oximetry Body weight 105.962113 105.872998 [facility] Measured kg [facility] Inhaled oxygen 60 % 60 % [facility] concentration [facility] [address] Inhaled oxygen 60 % 60 % [facility] concentration [facility] [address] Body weight 102.312093 102.449582 [facility] Measured kg [facility] Inhaled oxygen 60 % 60 % [facility] concentration [facility] [address] Inhaled oxygen 60 % 60 % [facility] concentration [facility] [address] Inhaled oxygen 60 % 60 % [facility] concentration [facility] [address] Body temperature 36.055745 36.220115 [facility] Respiratory rate 21 /min 21 /min [facility] Heart rate 99 /min 99 /min [facility] Diastolic blood 49 mm[Hg] 49 mm[Hg] [facility] Systolic blood 118 mm[Hg] 118 mm[Hg] [facility] Body weight 100.852158 100.605999 [facility] Measured kg [facility] Body height 180.193233 180.428709 cm [facility] Body mass index 30.84 kg/m2 30.84 kg/m2 [facility] lorie (BMI) [Ratio] [facility] [address] Respiratory rate 22 /min 22 /min [facility] Heart rate 90 /min 90 /min [facility] Diastolic blood 50 mm[Hg] 50 mm[Hg] [facility] Systolic blood 106 mm[Hg] 106 mm[Hg] [facility] [place] Inhaled oxygen 100 % 100 % [facility] Medical [facility] ter Body temperature 36.3336[address] 36.102[address] [facility] Respiratory rate 20 /min 20 /min [facility] Heart rate 93 /min 93 /min [facility] Diastolic blood 54 mm[Hg] 54 mm[Hg] [facility] Systolic blood 112 mm[Hg] 112 mm[Hg] [facility] Body weight 100.400299 100.526956 [facility] Measured kg [facility] Respiratory rate 20 /min 20 /min [facility] Heart rate 88 /min 88 /min [facility] Diastolic blood 54 mm[Hg] 54 mm[Hg] [facility] Systolic blood 96 mm[Hg] 96 mm[Hg] [facility] Inhaled oxygen 100 % 100 % [facility] concentration [facility] [address] Body temperature 36.700138 36.472065 [facility] Respiratory rate 21 /min 21 /min [facility] Heart rate 91 /min 91 /min [facility] Diastolic blood 57 mm[Hg] 57 mm[Hg] [facility] Systolic blood 93 mm[Hg] 93 mm[Hg] [facility] pressure [facility] Center Inhaled oxygen 100 % 100 % [facility] concentration [facility] [address] Body temperature 36.740767 36.639358 [facility] Body height 177.137875 177.935439 [facility] Body mass index 31.73 kg/m2 31.73 kg/m2 [facility] (BMI) [Ratio] [facility] [address] Body weight 100.305092 100.375063 kg [facility] Measured kg [facility] Center Inhaled oxygen 100 % 100 % [facility] concentration [facility] [address] Inhaled oxygen 100 % 100 % [facility] concentration [facility] [address] Body temperature 37.708708 37.562115 [facility] Oxygen saturation 96 % 96 % [facility] by Pulse oximetry Oxygen saturation 98 % 98 % [facility] by Pulse oximetry Body height 175.496145 175.629062 [facility] Body mass index 29.3 kg/m2 29.3 kg/m2 [facility] (BMI) [Ratio] Medical [facility] ter Body weight 90.726055 90.602253 [facility] Oxygen saturation 99 % 99 % [facility] by Pulse oximetry Body height 175.155676 175.467784 cm [facility] Body mass index 29.3 kg/m2 29.3 kg/m2 [facility] (BMI) [Ratio] Medical [facility] ter Body weight 90.927925 90.616942 [facility] Oxygen saturation 99 % 99 % [facility] by Pulse oximetry
--- NOTE | 2020-02-19 14:50 | PDOC ---
History of Present Illness - General Chief Complaint: Shortness of Breath Stated Complaint: S.O.B. Time Seen by Provider: 02/19/20 14:33 - History of Present Illness Initial Comments: 02/19/20 15:17 59yo M w/ reported hx of COVID and known hx of opioid use presents with worsening SOB/breathlessness on exertion [id number] but has gotten severe within the last few days. He cannot now walk more than 20steps without becoming out of breath. He also reports new cough productive of phlegm, paroxysmal nocturnal dyspnea, and lower extremity edema. Reports 1 isolated fever 1 week ago treated successfully w/ tylenol. Past History - Medical History Allergies/Adverse Reactions: Allergies Allergy/AdvReac Type Severity Reaction Status Date / Time No Known Allergies Allergy Verified 02/19/20 14:24 Home Medications: Ambulatory Orders Morphine Sulfate [Morphine Sulfate ER] 30 mg PO BID 09/12/19 oxyCODONE HCL [Oxycodone HCl] 30 mg PO Q6H PRN 09/12/19 Pregabalin 225 mg PO TID PRN 01/07/20 Albuterol Sulfate Inhaler - [Ventolin Hfa Inhaler -] 2 inh PO Q4H PRN 02/20/20 Clobetasol Propionate/Emoll [Clobetasol Emollient 0.05% Crm] TP BID PRN 02/20/20 Gabapentin 100 mg PO TID 02/20/20 Hydrocortisone 2.5% Topical Cr [Anusol-Hc -] TP BID 02/20/20 Tamsulosin HCl 0.4 mg PO DAILY 02/20/20 Tiotropium [place] [Spiriva Respimat] 2 inh PO DAILY 02/20/20 COPD: Yes CHF: Yes Diabetes: Yes Disorders: Yes (BPH) HTN: Yes Hypercholesterolemia: Yes - Psycho-Social/Smoking History Smoking History: Current every day smoker Have you smoked in the past 12 months: No If you are a former smoker, when did you quit?: was offered help last admission; refused Information on smoking cessation initiated: No Review of Systems - Review of Systems Able to Perform ROS?: Yes Is the patient limited German proficient: No Constitutional: No: Chills, Diaphoresis, Fever HEENTM: No: Blurred Vision, Recent change in vision, Throat Pain Respiratory: Yes: Cough, Orthopnea, SOB with Exertion, SOB at Rest, Wheezing, Productive cough. No: Stridor Cardiac (ROS): Yes: Chest Pain ABD/GI: No: Constipated, Diarrhea, Vomiting : No: Burning, Dysuria, Discharge Musculoskeletal: No: Back Pain Integumentary: No: Dryness, Rash Neurological: No: Headache, Numbness Endocrine: No: Symptoms Reported Hematologic/Lymphatic: No: Symptoms Reported All Other Systems: Reviewed and Negative *Physical Exam - Vital Signs Last Vital Signs Temp Pulse Resp BP Pulse Ox 97 F L 89 20 114/63 81 L 02/19/20 14:22 02/19/20 14:22 02/19/20 14:22 02/19/20 14:22 02/19/20 14:22 - Physical Exam General Appearance: Yes: Nourished, Appropriately Dressed, Disheveled, Mild Distress HEENT: positive: EOMI, ANDRZEJ, Normal Voice. negative: Muffled/Hoarse voice Neck: positive: Normal Thyroid. negative: Tender Respiratory/Chest: positive: Rales, Wheezing. negative: Lungs Clear Cardiovascular: positive: Regular Rhythm, Regular Rate, Gallop/S3 Gastrointestinal/Abdominal: positive: Normal Bowel Sounds, Soft Extremity: positive: Normal Capillary Refill, Normal Inspection, Normal Range of Motion Integumentary: positive: Normal Color, Warm, Clammy Neurologic: positive: Fully Oriented, Alert, Normal Response Heart Score/ECG Review - ECG Intrepretation Rhythm: Regular Rhythm - [place]: Right [place] Deviation - QRS Poor R Wave Progression: No - ST and T Early Repolarization: No - ECG Impressions Normal ECG: Yes Bradycardia: No ED Treatment Course - LABORATORY CBC & Chemistry Diagram: 02/20/20 05:15 02/20/20 05:15 Medical Decision Making - Medical Decision Making 02/20/20 13:31 COPD workup CHF workup -> elevated BNP -> admit w/ COVID test Discharge - Discharge Information Problems reviewed: Yes Clinical Impression/Diagnosis: Acute exacerbation of chronic obstructive pulmonary disease (COPD) Dyspnea Qualifiers: Dyspnea type: dyspnea on exertion Qualified Code(s): R06.00 - Dyspnea, unspecified Condition: Fair - Admission Yes - Follow up/Referral - Patient Discharge Instructions - Post Discharge Activity
[2020-02-19 15:20] LABS: BASO % 1.3 % (0-2.0); EOS % 1.3 % (0-4.5); HEMATOCRIT 36.4 % (35.4-49); HEMOGLOBIN 11.2 GM/dL (11.7-16.9); LYMPH % 21.6 % (8-40); MCH 23.3 pg (25.7-33.7); MCHC 30.7 g/dl (32.0-35.9); MONO % 8.4 % (3.8-10.2); NEUT % 67.4 % (42.8-82.8); PLATELET COUNT 361 K/MM3 (134-434); RBC 4.79 M/mm3 (4.00-5.60); RDW 21.2 % (11.9-15.9); VENOUS O2 SATURATION 34.1 % (70-80); VENOUS PH 7.303 (7.310-7.410); WHITE BLOOD COUNT 8.1 K/mm3 (4.0-10.0)
[2020-02-19 15:22] LABS: VENOUS PCO2 73.5 mmHg (38-52)
[2020-02-19 15:40] LABS: ANISOCYTOSIS 1+; MACROCYTOSIS 0; PLATELET ESTIMATE NORMAL
[2020-02-19] MEDS ORDERED: ALBUTEROL SO4 2.5/IPRATROPIUM 0.5 INH SOL 3 ML VIAL.NEB. NEB ONE ×2 (15:42→16:27)
[2020-02-19 15:49] LABS: ALBUMIN 2.7 g/dl (3.4-5.0); ALK PHOS 97 U/L (45-117); ANION GAP 3 MMOL/L (8-16); BILIRUBIN,TOTAL 0.4 mg/dL (0.2-1); BLOOD UREA NITROGEN 9.6 mg/dL (7-18); CALCIUM 8.5 mg/dL (8.5-10.1); CHLORIDE 95 mmol/L (98-107); CO2 39 mmol/L (21-32); CREATININE 0.6 mg/dL (0.55-1.3); GLUCOSE,RANDOM 95 mg/dL (74-106); N-TERMINAL BNP 2793.9 pg/ml (5-125); SGOT/AST 18 U/L (15-37); SGPT/ALT 13 U/L (13-61); SODIUM 136 mmol/L (136-145); TOT PROT 7.2 g/dl (6.4-8.2)
[2020-02-19] MEDS ORDERED: INSULIN REGULAR HUMAN 100 UNITS/ML *VIAL IVPUSH ONE (16:10)
[2020-02-19] MEDS ORDERED: DEXTROSE 50%-WATER - 25 GM/50 ML VIAL IVPUSH ONE ×2 (16:12→17:46)
[2020-02-19] MEDS ORDERED: DEXTROSE 50%-WATER 25 GM/50 ML DISP.SYRIN ONE ×2 (16:28→17:46)
--- NOTE | 2020-02-19 16:33 | PDOC ---
Documentation entered by Tabatha Olivares SCRIBE, acting as scribe for Shana Tucker MD. Shana Tucker MD: This documentation has been prepared by the Marshall fragoso Sydney, SCRIBE, under my direction and personally reviewed by me in its entirety. I confirm that the documentation accurately reflects all work, treatment, procedures, and medical decision making performed by me. Attending Attestation - Resident Resident Name: Crescencio Cha - ED Attending Attestation I have performed the following: I have examined & evaluated the patient, The case was reviewed & discussed with the resident, I agree w/resident's findings & plan, Exceptions are as noted - HPI HPI: 02/19/20 14:59 Patient is a 59 year old male with a significant past medical history of COPD (2-4 L), CHF, chronic pain who presents to the ED with three weeks of progressively worsening shortness of breath and LE edema. As per patient, his symptoms are exacerbated upon exertion. He reports being admitted into the hospital in September for covid-like symptoms without every testing positive for the virus. Denies headache, fever, chills, chest pain, abdominal pain, nausea, vomiting, diarrhea, or urinary changes. Allergies: NKDA PCP: Dr. Kearney - Physicial Exam PE: 02/19/20 16:29 Pt is alert and oriented and in tachypneic but not in distress. Pulm: + wheezing bilaterally, speaking in complete sentences, tachypneic. CV: rrr no m/r/g Ext: slight r>l asymetry, no pitting edema. - Medical Decision Making 02/19/20 16:31 Pt presents to the ED with hypoxia. Found to be in the 70s in room air. PAtient reports persistent shortness of breath, for which he has borrowed home O2 from a friend. History of COPD, CHF. Reports history of COVID, but never had positive test. Feels improved on O2--saturation 90s on 6 L NC. Differential includes PE, CHF, COPD exacerbation, COVID, PNA. Will check CTA and admit to medicine. Discharge - Discharge Information Problems reviewed: Yes Clinical Impression/Diagnosis: Acute exacerbation of chronic obstructive pulmonary disease (COPD), Dyspnea Condition: Improved Disposition: HOME - Follow up/Referral - Patient Discharge Instructions - Post Discharge Activity
[2020-02-19] MEDS ORDERED: DEXTROSE 50%-WATER - 25 GM/50 ML VIAL IVPUSH PRN (17:46)
[2020-02-19 19:05] LABS: CALCIUM 8.5 mg/dL (8.5-10.1); CREATININE 0.6 mg/dL (0.55-1.3); POTASSIUM 5.4 mmol/L (3.5-5.1)
--- NOTE | 2020-02-19 19:31 | PN ---
Teaching Attending Note Name of Resident: Eamon Linares ATTENDING PHYSICIAN STATEMENT I saw and evaluated the patient. I reviewed the resident's note and discussed the case with the resident. I agree with the resident's findings and plan as documented. SUBJECTIVE: Patient is a 59 year old man with a PMH of NIDDM, HTN, HLD, Tobacco use, COPD (2-4 L), CHF, Chronic pain due to neuropathy (on chronic narcotics and Gabapentin) and Tobacco use who presents to the ER with three weeks of progressively worsening shortness of breath and LE edema. As per patient, his symptoms are exacerbated upon exertion. He reports being admitted into the hospital in September for COVID-like symptoms without every testing positive for the virus. He cannot now walk more than 20 steps without becoming out of breath. He also reports new cough productive of phlegm, paroxysmal nocturnal dyspnea, and lower extremity edema. Reports 1 isolated fever 1 week ago treated successfully with Tylenol. Denies headache, fever, chills, chest pain, abdominal pain, nausea, vomiting, diarrhea, or urinary changes. Denies alcohol or illicit drug use. No sick contacts or recent travels. Family history is unremarkable. OBJECTIVE: Alert Vital Signs Period Temp Pulse Resp BP Sys/Nichols Pulse Ox Last 24 Hr 97 F-99.2 F 85-89 16-20 114-138/55-63 81-100 HEENT: No Jaundice, eye redness or discharge, PERRLA, EOMI. Normocephalic, atraumatic. External ears are normal and hearing is grossly intact. No nasal discharge. Neck: Supple, nontender. No palpable adenopathy or thyromegaly. No JVD Chest: Good effort. Wheezing. Clear to percussion. Heart: Regular. No S3, rub or murmur Abdomen: Not distended, soft, nontender and no HSM. No rebound or guarding. Normal bowel sounds. Ext: Peripheral pulses intact. No leg edema. Skin: Warm and dry. No petechiae, rash or ecchymosis. Neuro: Alert. Oriented x3. CN 2-12 grossly intact. Sensation grossly intact in all four extremities and DTR are symmetric. Psych: Appropriate mood and affect. Good insight. Home Medications Medication Instructions Recorded Morphine Sulfate [Morphine Sulfate 30 mg PO BID 09/12/19 ER] oxyCODONE HCL [Oxycodone HCl] 30 mg PO QID 09/12/19 Pregabalin 225 mg PO TID 01/07/20 Abnormal Lab Results 02/19/20 02/19/20 02/19/20 14:43 14:43 14:43 Hgb 11.2 L MCV 76.0 L MCH 23.3 L MCHC 30.7 L RDW 21.2 H VBG pH 7.303 L POC VBG pCO2 73.5 H* POC VBG pO2 23.5 L VBG HCO3 35.6 H VBG O2 Sat (Mirta) 34.1 L VBG Base Excess 7.0 H Sodium Potassium 6.0 H Chloride 95 L Carbon Dioxide 39 H Anion Gap 3 L Random Glucose B-Natriuretic Peptide 2793.9 H Albumin 2.7 L 02/19/20 18:40 Hgb MCV MCH MCHC RDW VBG pH POC VBG pCO2 POC VBG pO2 VBG HCO3 VBG O2 Sat (Mirta) VBG Base Excess Sodium 134 L Potassium 5.4 H Chloride 94 L Carbon Dioxide 38 H Anion Gap 2 L Random Glucose 119 H B-Natriuretic Peptide Albumin Current Medications Generic Name Dose Route Start Last Admin Trade Name Freq PRN Reason Stop Dose Admin Albuterol Sulfate 2 puff 02/19/20 22:23 Ventolin Hfa Inhaler - IH Q4H PRN SHORT OF BREATH/WHEEZING Ascorbic Acid 500 mg 02/20/20 10:00 Vitamin C - PO BID [facility] Cholecalciferol 400 unit 02/20/20 10:00 Vitamin D3 - PO DAILY [facility] Dextrose 25 gm 02/19/20 17:46 D50w (Vial) - IVPUSH PRN PRN HYPOGLYCEMIA Azithromycin 500 mg in 250 mls @ 250 mls/hr 02/19/20 22:20 Zithromax 500mg Ivpb (Pre-Docked) IVPB 02/19/20 23:19 ONCE ONE Azithromycin 250 mg/ Dextrose 250 mls @ 250 mls/hr 02/20/20 10:00 IVPB DAILY [facility] Ceftriaxone Sodium 1 gm/ 50 mls @ 100 mls/hr 02/19/20 22:22 Dextrose IVPB DAILY [facility] Insulin Aspart 1 vial 02/20/20 07:00 Novolog Vial Sliding Scale - SQ ACHS [facility] Protocol Zinc Sulfate 220 mg 02/20/20 10:00 Orazinc - PO BID [facility] ASSESSMENT AND PLAN: 1. COPD exacerbation/Hypoxic and hypercapnic respiratory failure - No obvious precipitating factor. Vascular study didnot reveal any DVT in legs. Oxygen saturation was 81-91% on room air. CTA chest/thorax shows ground glass infiltrates in the RLL. ECHO from 09/13/2019 was deemed technically limited study with limited diagnostic information, but showed dilated RV with normal LV size, thickness and function. EKG shows NSR at 78/minute, RAD and QTc 426 with no significant acute ischemic ST-T wave changes. Initial troponin is negative. Will treat patient with Zinc sulfate, Pepcid, Vitamin D, Vitamin C, IV Ceftriaxone and Azithromycin, Tylenol PRN and consult ID/Pulmonary. Will also treat with Duoneb, Solumedrol 40 mg q 8 hours, Symbicort and monitor peak flow. Will get urinalysis, treat with IV Lasix, get ECHO, restrict dietary salt intake, monitor renal function, monitor and replete electrolytes, get daily weight and consult Cardiology. Got Dextrose and Insulin in the ER to treat hyperkalemia - repeat BMP pending. Viral testing for COVID-19 ordered and patient placed on airborne, droplet and contact isolation. Started on supplemental oxygen via nasal cannula. Will continue comprehensive care for all of patients comorbid conditions. 2. Hypoalbuminemia - Possibly due to combined effects of malnutrition and inflammation associated with comorbid conditions. Will ensure adequate dietary protein intake and also consult four slide machine operator. Urinalysis pending. 3. DM Will implement sliding scale insulin regimen. Provide comprehensive diabetes care with patient teaching and counseling about the importance of ad herence to prescribed diabetes regimen, euglycemia, eye care and foot care. 4. Tobacco Use Counseled on risks associated with tobacco use. We will provide patient all the necessary assistance to facilitate smoking cessation and prescribe Nicotine patch. 5. Hypertension Will restart suitable outpatient antihypertensive drugs when clinically appropriate. Subsequently, will revise regimen to ensure [id number] excellent BP control. Patient counseled on the injurious effects of uncontrolled hypertension. Nonpharmacologic measures to control hypertension like weight loss, salt restriction and exercise stressed. Importance of adherence to treatment regimen and attainment of normotension emphasized. 6. DVT prophylaxis - Lovenox 40 mg SQ q 24 hours. 7. Advance directives - Full code
--- NOTE | 2020-02-19 20:14 | HP ---
CHIEF COMPLAINT: shortness of breath PCP: Dr. Kearney HISTORY OF PRESENT ILLNESS: Mr Scott is a 59M w a PMH of Opiate Overdose, COPD on 4L home O2, CHF (grade II diastolic dysfunction, EF55%), polysubstance abuse (opioids, and cocaine), recent admission 09/2019 for opioid overdose where he was intubated with ICU stay, presenting to the emergency department for 3 weeks of progressive SOB at rest. The patient was a poor historian as he was dozing off and collateral information was obtained via his . The patient was reported to have never had these symptoms in the past. The patient's endorsed that the patient has experienced episodes of coughing up yellow/brown sputum. The patient denies experiecing any leg swelling or leg edema. The patient does endorse neuropathy with occasional twitching in his legs and feet. The patient denied coming into contact with anyone who has had similar symptoms. The patient does not work in public or has been in highly populated close quarters. In the emergency department the patient was found to have been saturating in the 80's and was asymptomatic. He was then placed on NC. He Denies headache, fever, chills, chest pain, abdominal pain, nausea, vomiting, diarrhea, or urinary changes. Family history is unremarkable. Social History: Smokin.5 packs per day for 40 years Alcohol: a few beers per day Drugs: denies Allergies No Known Allergies Allergy (Verified 02/19/20 14:24) HOME MEDICATIONS: Home Medications Medication Instructions Recorded Morphine Sulfate [Morphine Sulfate 30 mg PO BID 09/12/19 ER] oxyCODONE HCL [Oxycodone HCl] 30 mg PO QID 09/12/19 Pregabalin 225 mg PO TID 01/07/20 REVIEW OF SYSTEMS see above PHYSICAL EXAMINATION Vital Signs - 24 hr 02/19/20 02/19/20 02/19/20 14:21 14:22 16:47 Temperature 97 F L 99.2 F Pulse Rate 89 89 Pulse Rate [ 89 Apical] Respiratory 20 16 Rate Blood Pressure 114/63 Blood Pressure 138/55 L [Left Arm] O2 Sat by Pulse 93 L 81 L 100 Oximetry (%) 02/19/20 02/19/20 17:05 18:00 Temperature Pulse Rate Pulse Rate [ 85 Apical] Respiratory 17 Rate Blood Pressure Blood Pressure 132/57 L [Left Arm] O2 Sat by Pulse 100 100 Oximetry (%) GENERAL: Awake, alert, and fully oriented, in no acute distress. HEAD: Normal with no signs of trauma. EYES: Pupils equal, round and reactive to light, extraocular movements intact, sclera anicteric, conjunctiva clear. No lid lag. EARS, NOSE, THROAT: Ears normal, nares patent, oropharynx clear without exudates. Moist mucous membranes. LUNGS: wheezing in upper lobes HEART: Regular rate and rhythm, normal S1 and S2 without murmur, rub or gallop. ABDOMEN: Soft, nontender, not distended, normoactive bowel sounds, no guarding, no rebound, no masses. No hepatomegaly or splenomegaly. LOWER EXTREMITIES: 2+ pulses, warm, well-perfused. No calf tenderness. No p eripheral edema. Laboratory Results - last 24 hr 02/19/20 02/19/20 02/19/20 14:43 14:43 14:43 WBC 8.1 RBC 4.79 Hgb 11.2 L Hct 36.4 MCV 76.0 L MCH 23.3 L MCHC 30.7 L RDW 21.2 H Plt Count 361 D MPV 8.0 Absolute Neuts (auto) 5.5 Neutrophils % 67.4 Lymphocytes % 21.6 D Monocytes % 8.4 Eosinophils % 1.3 D Basophils % 1.3 D Nucleated RBC % 0 Hypochromia 0 Platelet Estimate Normal Polychromasia 0 Poikilocytosis 0 Anisocytosis 1+ Microcytosis 1+ Macrocytosis 0 VBG pH 7.303 L POC VBG pCO2 73.5 H* POC VBG pO2 23.5 L VBG HCO3 35.6 H VBG O2 Sat (Mirta) 34.1 L VBG Base Excess 7.0 H Sodium 136 Potassium 6.0 H Chloride 95 L Carbon Dioxide 39 H Anion Gap 3 L BUN 9.6 Creatinine 0.6 Est GFR (CKD-EPI)AfAm 125.77 Est GFR (CKD-EPI)NonAf 108.52 POC Glucometer Random Glucose 95 Calcium 8.5 Total Bilirubin 0.4 AST 18 ALT 13 Alkaline Phosphatase 97 Creatine Kinase 44 Troponin I < 0.02 B-Natriuretic Peptide 2793.9 H Total Protein 7.2 Albumin 2.7 L 02/19/20 02/19/20 02/19/20 17:45 18:34 18:40 WBC RBC Hgb Hct MCV MCH MCHC RDW Plt Count MPV Absolute Neuts (auto) Neutrophils % Lymphocytes % Monocytes % Eosinophils % Basophils % Nucleated RBC % Hypochromia Platelet Estimate Polychromasia Poikilocytosis Anisocytosis Microcytosis Macrocytosis VBG pH POC VBG pCO2 POC VBG pO2 VBG HCO3 VBG O2 Sat (Mirta) VBG Base Excess Sodium 134 L Potassium 5.4 H Chloride 94 L Carbon Dioxide 38 H Anion Gap 2 L BUN 9.0 Creatinine 0.6 Est GFR (CKD-EPI)AfAm 125.77 Est GFR (CKD-EPI)NonAf 108.52 POC Glucometer 40 128 Random Glucose 119 H Calcium 8.5 Total Bilirubin AST ALT Alkaline Phosphatase Creatine Kinase Troponin I B-Natriuretic Peptide Total Protein Albumin ASSESSMENT/PLAN: Mr Scott is a 59M w a PMH of Opiate Overdose, Acute on Chronic Hypoxic and Hypercapneic Respiratory Failure, COPD on 4L home O2, CHF (grade II diastolic dysfunction, EF55%), polysubstance abuse reporting to the ED for 3 weeks of progressively worsening SOB. #Acute on Chronic Hypoxic and Hypercapneic Respiratory Failure - likely covid w superimposed bacterial pneumonia vs CAPNA vs CHF - on NC - ID - dr cullen - pulm - Dr. natarajan - john - Right base on CTA illustrates ground glass opacities - inflammatory markers DDimer/crp/ldh/Ferritin - start with azithromycin - suggest levo or ceftriaxone - vitamin c/d/zinc - albuterol inhaler q4h PRN #CHF - admit to tele - ECHO - Cardiology consultation - Dr. Dawson - BNP 2.7K -daily weights -i/o's #Opioid abuse - utox #FEN - monitor lytes - diabetic diet #DVT prophylaxis - Lovenox 40 mg SQ q 24 hours. #Advance directives - Full code Family Medical History Family History: As Documented Visit type - Emergency Visit Emergency Visit: Yes ED Registration Date: 02/19/20 Care time: The patient presented to the Emergency Department on the above date and was hospitalized for further evaluation of their emergent condition. - New Patient This patient is new to me today: No - Critical Care Critical Care patient: No ATTENDING PHYSICIAN STATEMENT I saw and evaluated the patient. I reviewed the resident's note and discussed the case with the resident. I agree with the resident's findings and plan as documented. SUBJECTIVE: OBJECTIVE: ASSESSMENT AND PLAN:
--- OUTSIDE RECORDS SUMMARY | 2020-02-19 20:45 | XMS ---
[...] is protected by Article 27-F of the [facility] Public Health law. If you continue you may haveaccess to information: Regarding HIV / AIDS; Provided by facilities licensed or operated by the [facility] Office of Mental Health; or Provided by the [facility] Office for People With Developmental Disabilities. If such information is present, then the following [facility] mandated warning applies: This information [...] law may result in a fine or correction sentence or both. A general authorization for [...] name Policy type Policy ID Covered Covered democrat's Policy P alvin / Coverage democrat ID relationship to Lock Inf ormation type lock [place] [id number] [place] [id number] 02 HEALTHCARE H[place] 2 [id number] [place] [id number] 02 HEALTHCARE PPO 2 SELF PAY SP INSURANCE C I G N A H O [id number] 02 [id number] M O 2 O CIGNA HMO O [id number] 02 [id number] 02 2 C I G N A H O [id number] 02 [id number] M O 2 C I G N A H O [id number] 02 [id number] M O 2 Problems, Conditions, and Diagnoses Code Display Name Description Problem Type Effective Data Dates Source(s) F11.90 Opioid use, OPIOID USE, Diagnosis 07/27/2019 [facility] unspecified, UNSPECIFIED, 06:21:00 AM Medical uncomplicated UNCOMPLICATED EDT Center J44.9 Chronic obstructive CHRONIC OBSTRUCTIVE Diagnosis 020 [facility] pulmonary disease, PULMONARY DISEASE, 06:21:00 AM [...] A41.9 Sepsis, unspecified SEPSIS, UNSPECIFIED Diagnosis 020 [facility] organism ORGANISM 06:21:00 AM Medical EDT Center J96.02 Acute respiratory ACUTE RESPIRATORY Diagnosis 07/27/2019 [facility] failure with FAILURE WITH 06:21:00 AM Medical hypercapnia HYPERCAPNIA EDT Center J96.00 Acute respiratory ACUTE RESPIRATORY Diagnosis 07/20/2019 [facility] failure, FAILURE, UNSP W 01:32:00 PM Medical unspecified whether HYPOXIA OR EDT Cente r with hypoxia or HYPERCAPNIA hypercapnia Surgeries/Procedures Procedure Description Date Indications Data Source(s) Bronchoscopy Completed 07/21/2019 [facility] (procedure) Bronchoscopy, by 02:00:00 PM Medical Farhan Mayer, on EDT 07/21/2019 2:00 PM Results ID Date Data Source [id number] 01/06/2020 10:00:00 PM EDT [facility] Name Value Range Interpretation Description Data Sup porting Code Source(s) Document(s ) SARS [facility] coronavirus 2 RNA This lab was ordered by [facility] and reported by [facility]. ID Date Data Source [id number] 09/22/2019 07:00:00 PM EDT [facility] Name Value Range Interpretation Description Data Sup porting Code Source(s) Document(s ) SARS [facility] CORONAVIRUS 2 RNA This lab was ordered by [facility] and reported by [facility]. ID Date Data Source [id number] 08/21/2019 12:00:00 AM EDT [facility] Name Value Range Interpretation Code Description Data Kala rce(s) Supporting Document(s ) 2019[facility]nCoV [facility] RNA XXX DREW+probe- Imp This lab was ordered by [facility] and reported by [employer] ID Date Data Source HematologyRou.[id number] 07/27/2019 05:15:00 AM EDT [facility] 0400 Name Value Range Interpretation Description Data Sup porting Code Source(s) Document(s ) Leukocytes 4.4-11.0 <content Saint [#/volume] in styleCode="Bold [facility] Blood by ">White Blood Medical Automated count [...] (0-0.1 KCUMM)</content > ID Date Data Source GFR(Creatinine).[id number] 07/27/2019 05:15:00 AM EDT [facility] 0-0400 Name Value Range Interpretation Code Description Data Kala rce(s) Supporting Document(s ) UNK > 60 <content [facility] styleCode="Bold"> Medical Cent er EGFR </content>146 GFR<content styleCode="Italic s"> (> 60 GFR)</content> ID Date Data Source CHTIPCCDA.[id number] 07/27/2019 05:15:00 AM EDT [facility] -0400 Name Value Range Interpretation Description Data Sup porting Code Source(s) Document(s ) Magnesium 1.6-2.3 <content Saint [Mass/volume] styleCode="Sarika [facility] in Serum or d">Magnesium Medical Plasma </content>1.8 Center MG/DL<content styleCode="Erin lics"> (1.6-2.3 MG/DL)</conten t> Phosphate 2.5-4.5 <content [facility] [Mass/volume] styleCode="Sarika Ye[facility] in Serum or d">Phosphorus Medical Plasma </content>3.1 Center MG/DL<content styleCode="Erin lics"> (2.5-4.5 MG/DL)</conten t> ID Date Data Source [facility].[id number] 07/27/2019 05:15:00 AM EDT [facility] Name Value Range Interpretation Description [...] Data Source Liver 07/26/2019 06:30:00 AM EDT [facility] Profile.[id number] Name Value Range Interpretation Description Data Sup [...] s"> (3.5-5.0 G/DL)</content> ID Date Data Source HematologyRou.[id number] 07/26/2019 06:30:00 AM EDT [facility] 0400 Name Value Range Interpretation Description Data [...] (0.0 KCUMM)</content > ID Date Data Source GFR(Creatinine).[id number] 07/26/2019 06:30:00 AM EDT [facility] 0-0400 Name Value Range Interpretation Code Description Data Kala rce(s) Supporting Document(s ) UNK > 60 <content [facility] styleCode="Bold"> Medical Cent er EGFR </content>180 GFR<content styleCode="Italic s"> (> 60 GFR)</content> ID Date Data Source Coagulation 07/26/2019 06:30:00 AM [facility] ical Center Rout.[id number] EDT Name Value Range Interpretation Description Data [...] cs"> (25.1-36.5 SEC)</content> ID Date Data Source CHMROUTINECCDA.[id number] 07/26/2019 06:30:00 AM EDT [facility] -0400 Name Value Range Interpretation Description Data Sup porting Code Source(s) Document(s ) Magnesium 1.6-2.3 <content Saint [Mass/volume] styleCode="Sarika Jalolh in Serum or d">Magnesium Medical Plasma </content>1.8 [...] (2.5-4.5 MG/DL)</conten t> ID Date Data Source [facility].[id number] 07/26/2019 06:30:00 AM EDT [facility] Name Value Range Interpretation Description [...] Data Source Liver 07/25/2019 06:00:00 AM EDT [facility] Profile.[id number] Name Value Range Interpretation Description Data Sup [...] s"> (3.5-5.0 G/DL)</content> ID Date Data Source HematologyRou.[id number] 07/25/2019 06:00:00 AM EDT [facility] 0400 Name Value Range Interpretation Description [...] (< 1 %)</content> ID Date Data Source GFR(Creatinine).[id number] 07/25/2019 06:00:00 AM EDT [facility] 0-0400 Name Value Range Interpretation Code Description Data Kala rce(s) Supporting Document(s ) UNK > 60 <content [facility] styleCode="Bold"> Medical Cent er EGFR </content>180 GFR<content styleCode="Italic s"> (> 60 GFR)</content> ID Date Data Source Coagulation 07/25/2019 06:00:00 AM [facility] Rout.[id number] EDT Name Value Range Interpretation Description Data [...] cs"> (0.80-1.20 #)</content> ID Date Data Source CHMROUTINECCDA.[id number] 07/25/2019 06:00:00 AM EDT [facility] -0400 Name Value Range Interpretation Description Data [...] (6.3-8.2 G/DL)</content > ID Date Data Source [facility].[id number] 07/25/2019 06:00:00 AM EDT [facility] Name Value Range Interpretation Description Data Sup porting Code Source(s) Document(s ) Potassium 3.5-5.3 <content Saint [Moles/volume] in styleCode="Bold"> [facility] Serum or Plasma Potassium Medical </content>3.7 Center MEQ/L<content styleCode="Italic s"> (3.5-5.3 MEQ/L)</content> Sodium 137-145 <content Saint [Moles/volume] in styleCode="Bold"> [facility] Serum or Plasma Sodium Medical </content>139 Center MEQ/L<content styleCode="Italic s"> (137-145 MEQ/L)</content> Chloride 98-107 <content [facility] [Moles/volume] in styleCode="Bold"> [facility] Serum or Plasma Chloride Medical </content>98 Center MEQ/L<content styleCode="Italic s"> (98-107 MEQ/L)</content> UNK 9-20 <content Saint styleCode="Bold"> [facility] BUN </content>12 Medical MG/DL<content Center styleCode="Italic s"> (9-20 MG/DL)</content> Carbon dioxide, 22-30 Above high <content Saint total normal styleCode="Bold"> Yemii [Moles/volume] in Carbon Dioxide Medical Serum or [...] IU/L)</content> Alanine 7-50 <content [facility] aminotransferase styleCode="Bold"> [facility] [Enzymatic Alanine Medical activity/volume] Aminotransferase Center [...] Data Source Liver 07/24/2019 08:50:00 AM EDT [facility] Profile.[id number] Name Value Range Interpretation Description Data Sup [...] IU/L)</content> Alkaline 38-126 <content [facility] phosphatase styleCode="Bold"> [facility] [Enzymatic Alkaline Medical activity/volume] Phosphatase (ALP) Cente [...] s"> (3.5-5.0 G/DL)</content> ID Date Data Source HematologyRou.[id number] 07/24/2019 08:50:00 AM EDT [facility] 0400 Name Value Range Interpretation Description Data [...] (< 1 %)</content> ID Date Data Source GFR(Creatinine).[id number] 07/24/2019 08:50:00 AM EDT [facility] 0-0400 Name Value Range Interpretation Code Description Data Kala rce(s) Supporting Document(s ) UNK > 60 <content [facility] styleCode="Bold"> Medical Cent er EGFR </content>146 GFR<content styleCode="Italic s"> (> 60 GFR)</content> ID Date Data Source Coagulation 07/24/2019 08:50:00 AM [facility] ical Center Rout.[id number] EDT Name Value Range Interpretation Description Data Sup porting Code Source(s) Document(s ) UNK 9.0-13.0 <content Saint styleCode="Bold" [facility] >Protime Medical </content>11.2 Center SEC<content styleCode="Itali cs"> (9.0-13.0 SEC)</content> INR in 0.80-1.2 <content [facility] Platelet poor 0 styleCode="Bold" [facility] plasma by >INR Medical Coagulation </content>1.01 Center assay #<content styleCode="Itali cs"> (0.80-1.20 #)</content> aPTT in 25.1-36. <content [facility] Platelet poor 5 styleCode="Bold" [facility] plasma by >Partial Medical Coagulation Thromboplastin Center assay Time </content>28.5 SEC<content styleCode="Itali cs"> (25.1-36.5 SEC)</content> ID Date Data Source CARMENZA.[id number] 07/24/2019 08:50:00 AM EDT [facility] -0400 Name Value Range Interpretation Description [...] (2.5-4.5 MG/DL)</conten t> ID Date Data Source [facility].[id number] 07/24/2019 08:50:00 AM EDT [facility] [...] 98-107 <content [facility] [Moles/volume] in styleCode="Bold"> [facility] Serum or Plasma Chloride Medical </content>104 Center [...] Data Source Liver 07/23/2019 06:50:00 AM EDT [facility] Profile.[id number] Name Value Range Interpretation Description Data Sup [...] s"> (3.5-5.0 G/DL)</content> ID Date Data Source HematologyRou.[id number] 07/23/2019 06:50:00 AM EDT [facility] 0400 Name Value Range Interpretation Description Data Sup porting Code Source(s) Document(s ) Erythrocytes 4.4-5.9 Below low normal <content Saint [#/volume] in styleCode="Bold [facility] Blood by ">Red Blood Medical Automated count [...] (0-0.1 KCUMM)</content > ID Date Data Source GFR(Creatinine).[id number] 07/23/2019 06:50:00 AM EDT [facility] 0-0400 Name Value Range Interpretation Code Description Data Kala rce(s) Supporting Document(s ) UNK > 60 <content [facility] styleCode="Bold"> Medical Cent er EGFR </content>146 GFR<content styleCode="Italic s"> (> 60 GFR)</content> ID Date Data Source Coagulation 07/23/2019 06:50:00 AM [facility] ical Center Rout.[id number] EDT Name Value Range Interpretation Description Data [...] cs"> (25.1-36.5 SEC)</content> ID Date Data Source CHMROUTINECCDA.[id number] 07/23/2019 06:50:00 AM EDT [facility] -0400 Name Value Range Interpretation Description [...] (2.5-4.5 MG/DL)</conten t> ID Date Data Source [facility].[id number] 07/23/2019 06:50:00 AM EDT [facility] Name Value Range Interpretation Description [...] Data Source Liver 07/22/2019 06:30:00 AM EDT [facility] Profile.[id number] Name Value Range Interpretation Description Data Sup [...] Date Data Source Coagulation 07/22/2019 06:30:00 AM [facility] Rout.[id number] EDT Name Value Range Interpretation Description Data [...] cs"> (0.80-1.20 #)</content> ID Date Data Source [employer].[id number] 07/22/2019 06:30:00 AM EDT [facility] -0400 Name Value Range Interpretation Description Data Sup porting Code Source(s) Document(s ) Troponin < 0.034 Above upper panic <content Saint I.cardiac limits styleCode="Bold [facility] [Mass/volume ">Troponin I Medical ] in Serum </content><cont Center or Plasma ent styleCode="Bold ">2.03 NG/ML HH</content><co ntent styleCode="Ital ics"> (< 0.034 NG/ML)</content > ID Date Data Source [employer].[id number] 07/21/2019 08:09:00 PM EDT [facility] -0400 Name Value Range Interpretation Description Data Sup porting Code Source(s) Document(s ) Troponin < 0.034 Above upper panic <content [facility] I.cardiac limits styleCode="Bold [facility] [Mass/volume ">Troponin I Medical ] in Serum </content><cont Center or Plasma ent styleCode="Bold ">3.08 NG/ML HH</content><co ntent styleCode="Ital ics"> (< 0.034 NG/ML)</content > ID Date Data Source Microbiology.[id number] 07/21/2019 06:05:00 PM EDT [facility] 400 Name Value Range Interpretation Code Description Data Kala rce(s) Supporting Document(s ) UNK <item><content [facility] styleCode="Bold"> Medical Cent er Culture Status </content>
<t able><tbody><tr>< td>Specimen Number:</td><td>[id number]</td></tr ><tr><td>Sample Collection Date/Time: </td><td> 0 6:05 PM</td></tr><tr>< td>Specimen Source:</td><td>Jose L STEVENS</td></tr ><tr><td>Lanie armijo 1:</td><td>SPECIM EN SENT TO [facility] DEPARTMENT OF </td></tr><tr><td >Culture Status:</td><td>P reliminary </td></tr><tr><td >Acid Fast Stain / Culture:</td><td> Collection Plate Date: 07/22/2019 16:01 </td></tr></tbody ></table></item> ID Date Data Source [employer].[id number] 07/21/2019 01:20:00 PM EDT [facility] -0400 Name Value Range Interpretation Description Data Sup porting Code Source(s) Document(s ) Troponin < 0.034 Above upper panic <content [facility] I.cardiac limits styleCode="Bold [facility] [Mass/volume ">Troponin I Medical ] in Serum </content><cont Center or Plasma ent styleCode="Bold ">4.43 NG/ML HH</content><co ntent styleCode="Ital ics"> (< 0.034 NG/ML)</content > ID Date Data Source LIPID.[id number] 07/21/2019 06:10:00 AM EDT [facility] Name Value Range Interpretation Description Data Sup [...] 60 MG/DL)</conten t> ID Date Data Source [employer]ers.[id number] 07/21/2019 06:10:00 AM EDT [facility] -0400 Name Value Range Interpretation Description Data Sup porting Code Source(s) Document(s ) Troponin < 0.034 Above upper panic <content [facility] I.cardiac limits styleCode="Bold [facility] [Mass/volume ">Troponin I Medical ] in Serum </content><cont Center or Plasma ent styleCode="Bold ">5.77 NG/ML HH</content><co ntent styleCode="Ital ics"> (< 0.034 NG/ML)</content > ID Date Data Source HematologyRou.[id number] 07/21/2019 06:10:00 AM EDT [facility] 0400 Name Value Range Interpretation Description [...] Date Data Source Coagulation 07/21/2019 06:10:00 AM [facility] ical Center Rout.[id number] EDT Name Value Range Interpretation Description Data Sup porting Code Source(s) Document(s ) INR in 0.80-1.2 Above high normal <content [facility] Platelet poor 0 styleCode="Bold" [facility] plasma by >INR Medical Coagulation </content>1.33 # Center assay H<content styleCode="Itali cs"> (0.80-1.20 #)</content> UNK 9.0-13.0 Above high normal <content Saint styleCode="Bold" [facility] >Protime Medical </content>14.8 Center SEC H<content styleCode="Itali cs"> (9.0-13.0 SEC)</content> aPTT in 25.1-36. <content [facility] Platelet poor 5 styleCode="Bold" [facility] plasma by >Partial Medical Coagulation Thromboplastin Center assay Time </content>33.7 SEC<content styleCode="Itali cs"> (25.1-36.5 SEC)</content> ID Date Data Source CHMROUTINECCDA.[id number] 07/21/2019 06:10:00 AM EDT [facility] -0400 Name Value Range Interpretation Description Data [...] (2.5-4.5 MG/DL)</conten t> ID Date Data Source Urinalysis.[id number] 07/20/2019 09:43:00 PM EDT [facility] 0 Name Value Range Interpretation Code Description Data Kala rce(s) Supporting Document(s ) UNK 22-328 <content [facility] styleCode="Bold"> Medical Cent er Creatinine, Random Urine </content>193.7 MG/DL<content styleCode="Italic s"> (22-328 MG/DL)</content> UNK 30-90 Below low normal <content [facility] styleCode="Bold"> Medical Cent er Sodium, Random Urine </content>12 MEQ/L L<content styleCode="Italic s"> (30-90 MEQ/L)</content> ID Date Data Source [employer].[id number] 07/20/2019 05:45:00 PM EDT [facility] -0400 Name Value Range Interpretation Description Data Sup porting Code Source(s) Document(s ) Troponin < 0.034 Above upper panic <content [facility] I.cardiac limits styleCode="Bold [facility] [Mass/volume ">Troponin I Medical ] in Serum </content><cont Center or Plasma ent styleCode="Bold ">1.33 NG/ML HH</content><co ntent styleCode="Ital ics"> (< 0.034 NG/ML)</content > ID Date Data Source CHMROUTINECCDA.[id number] 07/20/2019 05:45:00 PM EDT [facility] -0400 Name Value Range Interpretation Description Data Sup porting Code Source(s) Document(s ) Lactate 0.7-2.0 <content [facility] [Mass/volum styleCode="Bold Medical e] in Serum ">Lactic Acid Center or Plasma </content>1.7 MMOLL<content styleCode="Ital ics"> (0.7-2.0 MMOLL)</content > ID Date Data Source Urinalysis.[id number] 07/20/2019 02:52:00 PM EDT [facility] 0 Name Value Range Interpretation Description Data [...] by Test d">Urine Medical strip Specific Center [place] </content>1.02 5 <content styleCode="Erin lics"> (1.015-1.025 )</content> [...] (NONE SEEN HPF)</content> ID Date Data Source CHMROUTINECCDA.[id number] 07/20/2019 02:52:00 PM EDT [facility] -0400 Name Value Range Interpretation Description Data Sup porting Code Source(s) Document(s ) Cannabinoids <content Saint [Presence] in styleCode="Sarika [facility] Urine by Screen d">Cannabinoid Medical method >50 ng/mL s Center </content>NEGA TIVE NG/ML (Reference Range: not available)<br/ > ID Date Data Source Microbiology.[id number] 07/20/2019 02:20:00 PM EDT [facility] 400 Name Value Range Interpretation Code Description Data Kala rce(s) Supporting Document(s ) UNK <item><content [facility] styleCode="Bold"> Medical Cent er Culture Status </content>
<t able><tbody><tr>< td>Specimen Number:</td><td>[id number]</td></tr ><tr><td>Sample Collection Date/Time: </td><td> 0 2:20 PM</td></tr><tr>< td>Specimen Source:</td><td>B LOOD</td></tr><tr ><td>Culture Report:</td><td>N O GROWTH AFTER 48 HOURS </td></tr><tr><td >Culture Status:</td><td>P reliminary </td></tr><tr><td >Blood Culture:</td><td> Collection Plate Date: 07/20/2019 14:35 </td></tr></tbody ></table></item> UNK <item><content [facility] styleCode="Bold"> Medical Cent er Culture Report </content>
<t able><tbody><tr>< td>Specimen Number:</td><td>[id number]</td></tr ><tr><td>Sample Collection Date/Time: </td><td> 0 2:20 PM</td></tr><tr>< td>Specimen Source:</td><td>B LOOD</td></tr><tr ><td>Blood Culture:</td><td> Collection Plate Date: 07/20/2019 14:35 </td></tr><tr><td >Culture Status:</td><td>P reliminary </td></tr><tr><td >Culture Report:</td><td>N O GROWTH AFTER 48 HOURS </td></tr></tbody ></table></item> ID Date Data Source CHMROUTINECCDA.[id number] 07/20/2019 02:20:00 PM EDT [facility] -0400 Name Value Range Interpretation Description Data Sup porting Code Source(s) Document(s ) Lactate 0.7-2.0 Above upper panic <content [place] s [Mass/volum limits styleCode="Bold Medical e] in Serum ">Lactic Acid Center or Plasma </content><cont ent styleCode="Bold ">2.2 MMOLL HH</content><co ntent styleCode="Ital ics"> (0.7-2.0 MMOLL)</content > ID Date Data Source Liver 07/20/2019 02:05:00 PM EDT [facility] Profile.[id number] Name Value Range Interpretation Description Data Sup [...] s"> (3.5-5.0 G/DL)</content> ID Date Data Source HematologyRou.[id number] 07/20/2019 02:05:00 PM EDT [facility] 0400 Name Value Range Interpretation Description [...] NORMAL <content Saint styleCode="Bold [facility] ">Poikilocyte Medical </content>[facility] Center T <content styleCode="Ital ics"> (NORMAL )</content> UNK NORMAL <content Saint styleCode="Bold Ye[facility] ">Polychromasia Medical </content>[facility] T <content styleCode="Ital ics"> (NORMAL )</content> UNK 0 Above high <content [facility] normal styleCode="Bold Yeimi ">Promyelocyte Medical </content>2.0 % Center H<content styleCode="Ital ics"> (0 %)</content> UNK NORMAL <content Saint styleCode="Bold Ye[facility] ">Schistocyte Medical </content>[facility] T <content styleCode="Ital ics"> (NORMAL )</content> UNK NORMAL <content Saint styleCode="Bold [facility] ">RBC Medical Morphology Center </content>ABNOR MAL <content styleCode="Ital ics"> (NORMAL )</content> UNK NORMAL <content Saint styleCode="Bold Ye[facility] ">Spherocyte Medical </content>[facility] T <content styleCode="Ital ics"> (NORMAL )</content> UNK NORMAL <content Saint styleCode="Bold Ye[facility] ">Hypochromia Medical </content>[facility] T <content styleCode="Ital ics"> (NORMAL )</content> ID Date Data Source GFR(Creatinine).[id number] 07/20/2019 02:05:00 PM EDT [facility] 0-0400 Name Value Range Interpretation Code Description Data Kala rce(s) Supporting Document(s ) UNK > 60 Below low normal <content [facility] styleCode="Bold"> Medical Cent er EGFR </content>39 GFR L<content styleCode="Italic s"> (> 60 GFR)</content> ID Date Data Source Coagulation 07/20/2019 02:05:00 PM [facility] Rout.[id number] EDT Name Value Range Interpretation Description Data Sup porting Code Source(s) Document(s ) UNK 9.0-13.0 <content [facility] styleCode="Bold" Ye[facility] >Protime Medical </content>12.3 [...] cs"> (0.80-1.20 #)</content> ID Date Data Source CHMROUTINECCDA.[id number] 07/20/2019 02:05:00 PM EDT [facility] Name Value Range Interpretation Description Data Sup porting Code Source(s) Document(s ) UNK >= 1.0 <content Saint styleCode="Sarika Ye[facility] d">AG Ratio Medical </content>1.0 Center <content styleCode="Erin lics"> (>= 1.0 )</content> UNK 2.3-3.5 <content [facility] styleCode="Sarika [facility] d">Globulin Medical </content>2.9 Center G/DL<content styleCode="Rein lics"> (2.3-3.5 G/DL)</content > Protein 6.3-8.2 Below [...] 125 PG/ML)</conten t> ID Date Data Source [employer]iacMarkers.[id number] 07/20/2019 02:05:00 PM EDT [facility] [facility] Name Value Range Interpretation Description Data Sup porting Code Source(s) Document(s ) Troponin < 0.034 Above upper panic <content Saint I.cardiac limits styleCode="Bold Ye[facility] [Mass/volume ">Troponin I Medical ] in Serum </content><cont Center or Plasma ent styleCode="Bold ">0.239 NG/ML HH</content><co ntent styleCode="Ital ics"> (< 0.034 NG/ML)</content > ID Date Data Source [facility].[id number] 07/20/2019 02:05:00 PM EDT [facility] Name Value Range Interpretation Description Data Sup porting Code Source(s) Document(s ) Sodium 137-145 Below low <content Saint [Moles/volume] in normal styleCode="Bold"> [facility] Serum or Plasma Sodium Medical </content>136 Center MEQ/L L<content styleCode="Italic s"> (137-145 MEQ/L)</content> Chloride 98-107 <content Saint [Moles/volume] in styleCode="Bold"> [facility] Serum or Plasma Chloride Medical </content>101 Center MEQ/L<content styleCode="Italic s"> (98-107 MEQ/L)</content> Carbon dioxide, 22-30 <content Saint total styleCode="Bold"> [facility] [Moles/volume] in Carbon Dioxide Medical Serum or Plasma </content>28 Center MEQ/L<content styleCode="Italic s"> (22-30 MEQ/L)</content> Potassium 3.5-5.3 <content Saint [Moles/volume] in styleCode="Bold"> [facility] Serum or Plasma Potassium Medical </content>4.5 Center [...] s"> (3.5-5.0 G/DL)</content> ID Date Data Source Microbiology.[id number] 07/20/2019 02:00:00 PM EDT [facility] 400 Name Value Range Interpretation Code Description Data Kala rce(s) Supporting Document(s ) UNK <item><content [facility] styleCode="Bold"> Medical Cent er Culture Report </content>
<t able><tbody><tr>< td>Specimen Number:</td><td>[id number]</td></tr ><tr><td>Sample Collection Date/Time: </td><td> 0 2:00 PM</td></tr><tr>< td>Specimen Source:</td><td>B LOOD</td></tr><tr ><td>Blood Culture:</td><td> Collection Plate Date: 07/20/2019 14:29 </td></tr><tr><td >Culture Status:</td><td>P reliminary </td></tr><tr><td >Culture Report:</td><td>N O GROWTH AFTER 48 HOURS </td></tr></tbody ></table></item> UNK <item><content [facility] styleCode="Bold"> Medical Cent er Culture Status </content>
<t able><tbody><tr>< td>Specimen Number:</td><td>[id number]</td></tr ><tr><td>Sample Collection Date/Time: </td><td> 0 2:00 PM</td></tr><tr>< td>Specimen Source:</td><td>B LOOD</td></tr><tr ><td>Culture Report:</td><td>N O GROWTH AFTER 48 HOURS </td></tr><tr><td >Culture Status:</td><td>P reliminary </td></tr><tr><td >Blood Culture:</td><td> Collection Plate Date: 07/20/2019 14:29 </td></tr></tbody ></table></item> Procedure Social History Code Duration Value Status Description Data Source(s ) Smoking 07/24/2019 06:14:00 Not Known completed Not Known [facility] EDT Center Smoking 07/21/2019 12:25:00 Not Known completed Not Known [facility] EDT Center Smoking 07/20/2019 08:38:00 Not Known completed Not Known [facility] EDT Center Smoking 07/20/2019 04:28:00 Not Known completed Not Known [facility] EDT Center Smoking 07/20/2019 03:37:00 Daily Smoker completed Daily Smoker S [facility] EDT Center Smoking 07/20/2019 01:48:00 Daily Smoker completed Daily Smoker S [facility] EDT Center Vital Signs ID Date Data Source UNK Name Value Range Interpretation Code Description Data Source(s) Body temperature 36.935479 36.233363 [facility] Respiratory rate 20 /min 20 /min [facility] Heart rate 102 /min 102 /min [facility] Diastolic blood 75 mm[Hg] 75 mm[Hg] [facility] pressure [facility] Systolic blood 151 mm[Hg] 151 mm[Hg] [facility] pressure Medical Center Oxygen saturation 93 % 93 % [facility] Abelardo hendrix in Arterial blood Medical Center by Pulse oximetry Body weight 90.674769 90.581957 kg [facility] hs Measured kg Medical Center Body temperature 36.925779 36.171627 [facility] Respiratory rate 19 /min 19 /min [facility] Heart rate 117 /min 117 /min [facility] Body height 182.014374 182.415135 cm [facility] Diastolic blood 80 mm[Hg] 80 mm[Hg] [facility] pressure Medical Center Systolic blood 143 mm[Hg] 143 mm[Hg] [facility] Body mass index 26.97 kg/m2 26.97 kg/m2 [facility] (BMI) [Ratio] [facility] Respiratory rate 24 /min 24 /min [facility] Heart rate 82 /min 82 /min [facility] Diastolic blood 10 mm[Hg] 10 mm[Hg] [facility] Center Systolic blood 138 mm[Hg] 138 mm[Hg] [facility] Body temperature 37.697125 37.568099 [facility] Respiratory rate 25 /min 25 /min [facility] Heart rate 81 /min 81 /min [facility] Diastolic blood 71 mm[Hg] 71 mm[Hg] [facility] Center Systolic blood 142 mm[Hg] 142 mm[Hg] [facility] Center Respiratory rate 26 /min 26 /min [facility] Heart rate 80 /min 80 /min [facility] Diastolic blood 72 mm[Hg] 72 mm[Hg] [facility] Center Systolic blood 140 mm[Hg] 140 mm[Hg] [facility] Oxygen saturation 97 % 97 % [facility] in Arterial blood [facility] by Pulse oximetry Body temperature 36.825472 36.625354 [facility] Body temperature 37.751761 37.509194 [facility] Oxygen saturation 95 % 95 % [facility] in Arterial blood [facility] by Pulse oximetry Oxygen saturation 98 % 98 % [facility] in Arterial blood [facility] by Pulse oximetry Body weight 97.342169 97.021581 kg [facility] Measured kg [facility] Oxygen saturation 94 % 94 % [facility] in Arterial blood [facility] by Pulse oximetry Body weight 105.629806 105.060392 kg [facility] Measured kg Medical Center Inhaled oxygen 60 % 60 % [facility] concentration [facility] [address] Inhaled oxygen 60 % 60 % [facility] concentration [facility] [address] Body weight 102.757867 102.263846 kg [facility] Measured kg Medical Center Inhaled oxygen 60 % 60 % [facility] concentration [facility] [address] Inhaled oxygen 60 % 60 % [facility] concentration [facility] [address] Inhaled oxygen 60 % 60 % [facility] concentration [facility] [address] Body temperature 36.437163 36.214501 [facility] Respiratory rate 21 /min 21 /min [facility] Heart rate 99 /min 99 /min [facility] Diastolic blood 49 mm[Hg] 49 mm[Hg] [facility] Center Systolic blood 118 mm[Hg] 118 mm[Hg] [facility] Body weight 100.853937 100.806933 kg [facility] Measured kg Medical Center Body height 180.485463 180.597505 cm [facility] Center Body mass index 30.84 kg/m2 30.84 kg/m2 [facility] lorie (BMI) [Ratio] [facility] Respiratory rate 22 /min 22 /min [facility] Heart rate 90 /min 90 /min [facility] Diastolic blood 50 mm[Hg] 50 mm[Hg] [facility] Center Systolic blood 106 mm[Hg] 106 mm[Hg] [facility] Inhaled oxygen 100 % 100 % [facility] Medical [facility] ter Body temperature 36.442031 36.116032 [facility] Respiratory rate 20 /min 20 /min [facility] Heart rate 93 /min 93 /min [facility] Diastolic blood 54 mm[Hg] 54 mm[Hg] [facility] Center Systolic blood 112 mm[Hg] 112 mm[Hg] [facility] Body weight 100.366118 100.295330 kg [facility] Measured kg Medical Center Respiratory rate 20 /min 20 /min [facility] Heart rate 88 /min 88 /min [facility] Diastolic blood 54 mm[Hg] 54 mm[Hg] [facility] Center Systolic blood 96 mm[Hg] 96 mm[Hg] [facility] Inhaled oxygen 100 % 100 % [facility] concentration [facility] [address] [facility] Body temperature 36.519716 36.604180 [facility] Respiratory rate 21 /min 21 /min [facility] Heart rate 91 /min 91 /min [facility] Diastolic blood 57 mm[Hg] 57 mm[Hg] [facility] pressure [facility] Systolic blood 93 mm[Hg] 93 mm[Hg] [facility] pressure [facility] Center Inhaled oxygen 100 % 100 % [facility] concentration [facility] [address] [facility] Body temperature 36.850774 36.171597 [facility] Body height 177.887266 177.136812 cm [facility] Body mass index 31.73 kg/m2 31.73 kg/m2 [facility] (BMI) [Ratio] [facility] Body weight 100.578913 100.042018 kg [facility] Measured kg Medical Center Inhaled oxygen 100 % 100 % [facility] concentration [facility] [address] [facility] Inhaled oxygen 100 % 100 % [facility] concentration [facility] Body temperature 37.257173 37.999673 [facility] Oxygen saturation 96 % 96 % [facility] in Arterial blood [facility] by Pulse oximetry Oxygen saturation 98 % 98 % [facility] in Arterial blood [facility] by Pulse oximetry Body height 175.427839 175.128666 cm [facility] Body mass index 29.3 kg/m2 29.3 kg/m2 [facility] (BMI) [Ratio] Medical [facility] ter Body weight 90.467440 90.754531 kg [facility] hs Measured kg Medical Center Oxygen saturation 99 % 99 % [facility] in Arterial blood [facility] by Pulse oximetry Body height 175.071634 175.508021 cm [facility] Center Body mass index 29.3 kg/m2 29.3 kg/m2 [facility] (BMI) [Ratio] Medical [facility] ter Body weight 90.663734 90.930625 kg [facility] hs Measured kg [facility] Center Oxygen saturation 99 % 99 % [facility] in Arterial blood [facility] by Pulse oximetry
--- NOTE | 2020-02-19 21:43 | EKG ---
Test Reason : Blood Pressure : / mmHG Vent. Rate : 078 BPM Atrial Rate : 078 BPM P-R Int : 164 ms QRS Dur : 090 ms QT Int : 374 ms P-R-T Axes : 061 094 037 degrees QTc Int : 426 ms NORMAL SINUS RHYTHM RIGHTWARD AXIS BORDERLINE ECG WHEN COMPARED WITH ECG OF 06-JAN-2020 16:46, SINUS RHYTHM HAS REPLACED ATRIAL FIBRILLATION CRITERIA FOR SEPTAL INFARCT ARE NO LONGER PRESENT Confirmed by Rand Weiner ([id number]) on 02/19/2020 9:43:01 PM Referred By: Confirmed By:Rand Weiner
[2020-02-19] MEDS ORDERED: FUROSEMIDE 40 MG/4 ML INJECTABLE VIAL IVPUSH ONE (22:17)
[2020-02-19] MEDS ORDERED: AZITHROMYCIN IVPB 500 MG/250 ML BAG IVPB ONE ×2 (22:20→23:02)
[2020-02-19] MEDS ORDERED: ALBUTEROL SO4 HFA INHALER IH PRN (22:23)
[2020-02-19] MEDS ORDERED: FUROSEMIDE 40 MG/4 ML INJECTABLE VIAL ONE (23:02)
[2020-02-19] MEDS ORDERED: CEFTRIAXONE 1 GM/50 ML BAG ONE ×2 (23:02→23:03)
[2020-02-19] MEDS: CEFTRIAXONE 1 GM in DEXTROSE 5%-WATER - 50 ML IVPB SCH (23:10)
[2020-02-19] MEDS ORDERED: PREGABALIN 25 MG CAPSULE PO STA (23:15)
[2020-02-19] MEDS ORDERED: morphine CARPU-JECT 4 MG/1 ML DISP.SYRIN IVPUSH STA (23:16)
[2020-02-19] MEDS ORDERED: morphine SULFATE 4 MG/ML VIAL ONE (23:18)
[2020-02-19] MEDS ORDERED: PREGABALIN 25 MG CAPSULE ONE (23:18)
[2020-02-20 04:14] VITALS: BMI 25.7
[2020-02-20 06:00] LABS: BASO % 2.2 % (0-2.0); EOS % 2.3 % (0-4.5); HEMATOCRIT 35.5 % (35.4-49); HEMOGLOBIN 10.7 GM/dL (11.7-16.9); LYMPH % 26.6 % (8-40); MCH 22.7 pg (25.7-33.7); MCHC 30.2 g/dl (32.0-35.9); MEAN PLT VOLUME 7.4 fl (7.5-11.1); MONO % 11.8 % (3.8-10.2); NEUT % 57.1 % (42.8-82.8); PLATELET COUNT 323 K/MM3 (134-434); RBC 4.74 M/mm3 (4.00-5.60); RDW 20.8 % (11.9-15.9); WHITE BLOOD COUNT 6.2 K/mm3 (4.0-10.0)
[2020-02-20] MEDS: INSULIN SLIDING SCALE (NOVOLOG) 1 VIAL SQ SCH ×4 (06:13→21:31)
[2020-02-20 06:29] LABS: ALBUMIN 2.4 g/dl (3.4-5.0); BILIRUBIN,TOTAL 0.4 mg/dL (0.2-1); BLOOD UREA NITROGEN 6.8 mg/dL (7-18); CALCIUM 8.5 mg/dL (8.5-10.1); CREATININE 0.5 mg/dL (0.55-1.3); PHOSPHOROUS 4.8 mg/dL (2.5-4.9); POTASSIUM 4.4 mmol/L (3.5-5.1); TOT PROT 6.3 g/dl (6.4-8.2)
[2020-02-20] MEDS ORDERED: DEXTROSE 5%-WATER - 50 ML IVPB ONE (09:11)
[2020-02-20] MEDS ORDERED: cefTRIAXone SODIUM 1 GM VIAL ONE (09:11)
[2020-02-20] MEDS ORDERED: PT OWN MED DRAWER 7, Y5N ONE (09:11)
--- NOTE | 2020-02-20 09:27 | PN ---
Teaching Attending Note Name of Resident: Matt Zamora ATTENDING PHYSICIAN STATEMENT I saw and evaluated the patient. I reviewed the resident's note and discussed the case with the resident. I agree with the resident's findings and plan as documented. SUBJECTIVE: Patient is c/o having pain that he is on multiple pain meds. came in for having shortness of breath OBJECTIVE: Vital Signs Temperature 98.2 F 02/20/20 08:17 Pulse Rate 88 02/20/20 08:17 Respiratory Rate 22 H 02/20/20 08:17 Blood Pressure 147/75 02/20/20 08:17 O2 Sat by Pulse Oximetry (%) 91 L 02/20/20 08:17 PE: as per resident's note CHEST: wheezing bl, no rales or rhonchi CBCD WBC 6.2 K/mm3 (4.0-10.0) 02/20/20 05:15 RBC 4.74 M/mm3 (4.00-5.60) 02/20/20 05:15 Hgb 10.7 GM/dL (11.7-16.9) L 02/20/20 05:15 Hct 35.5 % (35.4-49) 02/20/20 05:15 MCV 75.0 fl (80-96) L 02/20/20 05:15 MCHC 30.2 g/dl (32.0-35.9) L 02/20/20 05:15 RDW 20.8 % (11.9-15.9) H 02/20/20 05:15 Plt Count 323 K/MM3 (134-434) 02/20/20 05:15 MPV 7.4 fl (7.5-11.1) L 02/20/20 05:15 CMP Sodium 139 mmol/L (136-145) 02/20/20 05:15 Potassium 4.4 mmol/L (3.5-5.1) 02/20/20 05:15 Chloride 95 mmol/L (98-107) L 02/20/20 05:15 Carbon Dioxide 44 mmol/L (21-32) H 02/20/20 05:15 Anion Gap 0 MMOL/L (8-16) L 02/20/20 05:15 BUN 6.8 mg/dL (7-18) L 02/20/20 05:15 Creatinine 0.5 mg/dL (0.55-1.3) L 02/20/20 05:15 Random Glucose 75 mg/dL (74-106) 02/20/20 05:15 Calcium 8.5 mg/dL (8.5-10.1) 02/20/20 05:15 Total Bilirubin 0.4 mg/dL (0.2-1) 02/20/20 05:15 AST 13 U/L (15-37) L 02/20/20 05:15 ALT 10 U/L (13-61) L 02/20/20 05:15 Alkaline Phosphatase 83 U/L (45-117) 02/20/20 05:15 Total Protein 6.3 g/dl (6.4-8.2) L 02/20/20 05:15 Albumin 2.4 g/dl (3.4-5.0) L 02/20/20 05:15 CARDIAC ENZYMES Creatine Kinase 44 U/L (26-308) 02/19/20 14:43 Troponin I < 0.02 ng/ml (0.00-0.05) 02/19/20 14:43 Current Medications Generic Name Dose Route Start Last Admin Trade Name Freq PRN Reason Stop Dose Admin Albuterol Sulfate 2 puff 02/19/20 22:23 Ventolin Hfa Inhaler - IH Q4H PRN SHORT OF BREATH/WHEEZING Ascorbic Acid 500 mg 02/20/20 10:00 Vitamin C - PO BID [facility] Cholecalciferol 400 unit 02/20/20 10:00 Vitamin D3 - PO DAILY [facility] Dextrose 25 gm 02/19/20 17:46 D50w (Vial) - IVPUSH PRN PRN HYPOGLYCEMIA Azithromycin 250 mg/ Dextrose 250 mls @ 250 mls/hr 02/20/20 10:00 IVPB DAILY FLAKITA Ceftriaxone Sodium 1 gm/ 50 mls @ 100 mls/hr 02/19/20 22:22 02/19/20 23:10 Dextrose IVPB 100 mls/hr DAILY [facility] Administration Insulin Aspart 1 vial 02/20/20 07:00 02/20/20 06:13 Novolog Vial Sliding Scale - SQ Not Given ACHS [facility] Protocol Zinc Sulfate 220 mg 02/20/20 10:00 Orazinc - PO BID [facility] Home Medications Medication Instructions Recorded Morphine Sulfate [Morphine Sulfate 30 mg PO BID 09/12/19 ER] oxyCODONE HCL [Oxycodone HCl] 30 mg PO QID 09/12/19 Pregabalin 225 mg PO TID 01/07/20 Laboratory Tests 02/19/20 02/19/20 02/20/20 14:43 18:40 03:21 D-Dimer 944 H Ferritin 22.7 C-Reactive Protein 1.1 H B-Natriuretic Peptide 2793.9 H CTA: No PE / non-specific mildly enlarged mediastinal and hilar adenopathy / mild choronic parenchymal changes. ASSESSMENT AND PLAN: This patient is a 59yom with PMhx of opiate overdose, COPD on 4L home O2, CHF, (diastolic dysfunction, EF 55%), and polysubstance abuse (opioids, and cocaine). Last admission 09/2019 : opioid overdose requiring intubation and mechanical ventilation. admitted for having severe dyspnea with productive ;yellow/brown sputum #Acute Copd exacerbation : on IV solumedrol, follow covid markers daily. on albuterol inh, patient is on home oxygen continue, out patient #Acute on chronic diastolic chf: given a dose of Iv lasix since BNP is 2790's , continue IV lasix 40mg daily #Hx of polysubstance abuse: on pain meds , the doses were verified by the resident with his dr. rainey it as needed basis, also his lyrica at 200mg tid since max dose is 600mg and has no further benefit above 600mg #Enlarged Mediastinal and hilar adenopathy: follow up as an outpatient pulmonary function test as an outpatient pulmonary/id consult appreciated monitor off antibiotic since no changes from prior chest Ct DVT Px: lovenox
[2020-02-20] MEDS: ZINC SULFATE 220 MG CAPSULE (FP) PO SCH ×2 (09:28→21:27)
[2020-02-20] MEDS: CHOLECALCIFEROL (VIT D3) 400 UNIT (10 MCG) TABLET PO SCH (09:28)
[2020-02-20] MEDS: ASCORBIC ACID 500 MG TABLET (FP) PO SCH ×2 (09:28→21:28)
[2020-02-20] MEDS: CEFTRIAXONE 1 GM in DEXTROSE 5%-WATER - 50 ML IVPB SCH (09:29)
[2020-02-20] MEDS: methylPREDNISolone NA SUCC 40 MG/1 ML VIAL IVPUSH SCH ×2 (09:49→17:20)
[2020-02-20] MEDS: ENOXAPARIN NA (PORCINE) 40 MG/0.4 ML DISP.SYRIN SQ SCH (09:49)
[2020-02-20] MEDS ORDERED: AZITHROMYCIN IVPB 250 MG in DEXTROSE 5%-WATER - 250 ML IVPB SCH (10:00)
[2020-02-20] MEDS ORDERED: morphine SO4 SUSTAINED ACTING 100 MG TABLET.SA PO ONE (10:45)
[2020-02-20] MEDS ORDERED: PREGABALIN 100 MG CAPSULE PO ONE (10:45)
[2020-02-20] MEDS ORDERED: oxyCODONE HCL 5 MG TABLET PO ONE (10:46)
[2020-02-20] MEDS ORDERED: morphine SO4 SUSTAINED ACTING 30 MG TABLET.SA PO ONE (11:00)
--- NOTE | 2020-02-20 12:10 | CON.CARD ---
Cardiology Consult (text) - Consultation Consultation Note: cc: sob hpi: 59 m hx htn, hld, dchf, copd, cocaine use here with sob. Moderate sob [place] over past few days. Worse with exertion. No associated sxs. No cp palps dizzy loc pnd orthopnea le edema. Feels better after iv steroids. pmh: per hpi psh: none social: +cigs, cocaine fam: no premature cad, scd ros: per hpi; all others nl meds: Ambulatory Orders Morphine Sulfate [Morphine Sulfate ER] 30 mg PO BID 09/12/19 oxyCODONE HCL [Oxycodone HCl] 30 mg PO QID 09/12/19 Pregabalin 225 mg PO TID 01/07/20 pe: Vital Signs Period Temp Pulse Resp BP Sys/Nichols Pulse Ox Last 24 Hr 97 F-99.2 F 84-89 16-22 114-150/51-75 81-100 nad no jvd rrr s1s2 no mrg bl exp wheeze, nl eff aao3 no le e/c/c abd nt nd pos bs no jaundice diaphoresis pos dp pt no carotid bruits Laboratory Last Values WBC 6.2 K/mm3 (4.0-10.0) 02/20/20 05:15 RBC 4.74 M/mm3 (4.00-5.60) 02/20/20 05:15 Hgb 10.7 GM/dL (11.7-16.9) L 02/20/20 05:15 Hct 35.5 % (35.4-49) 02/20/20 05:15 MCV 75.0 fl (80-96) L 02/20/20 05:15 MCH 22.7 pg (25.7-33.7) L 02/20/20 05:15 MCHC 30.2 g/dl (32.0-35.9) L 02/20/20 05:15 RDW 20.8 % (11.9-15.9) H 02/20/20 05:15 Plt Count 323 K/MM3 (134-434) 02/20/20 05:15 MPV 7.4 fl (7.5-11.1) L 02/20/20 05:15 Absolute Neuts (auto) 3.6 K/mm3 (1.5-8.0) 02/20/20 05:15 Neutrophils % 57.1 % (42.8-82.8) 02/20/20 05:15 Lymphocytes % 26.6 % (8-40) D 02/20/20 05:15 Monocytes % 11.8 % (3.8-10.2) H 02/20/20 05:15 Eosinophils % 2.3 % (0-4.5) 02/20/20 05:15 Basophils % 2.2 % (0-2.0) H 02/20/20 05:15 Nucleated RBC % 0 % (0-0) 02/20/20 05:15 Hypochromia 0 02/19/20 14:43 Platelet Estimate Normal 02/19/20 14:43 Polychromasia 0 02/19/20 14:43 Poikilocytosis 0 02/19/20 14:43 Anisocytosis 1+ 02/19/20 14:43 Microcytosis 1+ 02/19/20 14:43 Macrocytosis 0 02/19/20 14:43 D-Dimer 944 ng/ml (0-500) H 02/20/20 03:21 VBG pH 7.303 (7.310-7.410) L 02/19/20 14:43 POC VBG pCO2 73.5 mmHg (38-52) H* 02/19/20 14:43 POC VBG pO2 23.5 mmHg (28-48) L 02/19/20 14:43 VBG HCO3 35.6 mmol/L (23-29) H 02/19/20 14:43 VBG O2 Sat (Mirta) 34.1 % (70-80) L 02/19/20 14:43 VBG Base Excess 7.0 mmol/L (-2-2) H 02/19/20 14:43 Sodium 139 mmol/L (136-145) 02/20/20 05:15 Potassium 4.4 mmol/L (3.5-5.1) 02/20/20 05:15 Chloride 95 mmol/L (98-107) L 02/20/20 05:15 Carbon Dioxide 44 mmol/L (21-32) H 02/20/20 05:15 Anion Gap 0 MMOL/L (8-16) L 02/20/20 05:15 BUN 6.8 mg/dL (7-18) L 02/20/20 05:15 Creatinine 0.5 mg/dL (0.55-1.3) L 02/20/20 05:15 Est GFR (CKD-EPI)AfAm 135.56 02/20/20 05:15 Est GFR (CKD-EPI)NonAf 116.96 02/20/20 05:15 POC Glucometer 137 UNITS (80-120) 02/20/20 11:14 Random Glucose 75 mg/dL (74-106) 02/20/20 05:15 Calcium 8.5 mg/dL (8.5-10.1) 02/20/20 05:15 Phosphorus 4.8 mg/dL (2.5-4.9) 02/20/20 05:15 Magnesium 2.0 mg/dL (1.8-2.4) 02/20/20 05:15 Ferritin 22.7 ng/ml (8-388) 02/19/20 18:40 Total Bilirubin 0.4 mg/dL (0.2-1) 02/20/20 05:15 AST 13 U/L (15-37) L 02/20/20 05:15 ALT 10 U/L (13-61) L 02/20/20 05:15 Alkaline Phosphatase 83 U/L (45-117) 02/20/20 05:15 LD Total 241 U/L (87-246) 02/19/20 18:40 Creatine Kinase 44 U/L (26-308) 02/19/20 14:43 Troponin I < 0.02 ng/ml (0.00-0.05) 02/19/20 14:43 C-Reactive Protein 1.1 MG/DL (0.00-0.3) H 02/19/20 18:40 B-Natriuretic Peptide 2793.9 pg/ml (5-125) H 02/19/20 14:43 Total Protein 6.3 g/dl (6.4-8.2) L 02/20/20 05:15 Albumin 2.4 g/dl (3.4-5.0) L 02/20/20 05:15 echo 09/2019: tds; nl lvef, sev rve, mod dec rv fcn, mild phtn cta chest: no pe, no chf ecg: sr nl intervals no ischemic changes tele: sr a/p: 59 m hx htn, hld, dchf, copd, cocaine use here with sob. sob, acute copd, chronic diastolic chf: -no signs acute chf or acs. bnp wnl. -vol stable w/o diuretics -cont tx of copd as this seems to be etiology of current symptoms htn: -stable, monitor with steroids hld: -stable tob use, cocaine use: -cessation discussed dc tele
--- NOTE | 2020-02-20 13:23 | CON.PULM ---
Consult Consult Specialty:: PULM/CCM Referred by:: Hospitalist Reason for Consultation:: SOB - History of Present Illness Chief Complaint: SOB History of Present Illness: 59 M, past history of opiate overdose, COPD on 4L home O2, CHF, (diastolic dysfunction, EF 55%), and polysubstance abuse (opioids, and cocaine). Last admission 09/2019 : opioid overdose requiring intubation and mechanical ventilation. Admitted via the ER due to 3 weeks of progressive SOB. Apparently has also been experiencing productive cough of yellow/brown sputum. Denies hemoptysis. No known COVID19 exposure. CTA: No PE / non-specific mildly enlarged mediastinal and hilar adenopathy / mild choronic parenchymal changes. 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 No: Asthma, Cancer, Pulmonary Embolus, Pulmonary Fibrosis, Sleep Apnea Psych: Yes: Anxiety - Past Surgical History Past Surgical History: Yes: None - Alcohol/Substance Use Hx Alcohol Use: No - Smoking History Smoking history: Current every day smoker Have you smoked in the past 12 months: Yes Aproximately how many cigarettes per day: 20 If you are a former smoker, when did you quit?: was offered help last admission; refused - Social History Usual Living Arrangement: With Spouse Home Medications - Allergies Allergies/Adverse Reactions: Allergies Allergy/AdvReac Type Severity Reaction Status Date / Time No Known Allergies Allergy Verified 02/19/20 14:24 - Home Medications Home Medications: Ambulatory Orders Morphine Sulfate [Morphine Sulfate ER] 30 mg PO BID 09/12/19 oxyCODONE HCL [Oxycodone HCl] 30 mg PO Q6H PRN 09/12/19 Pregabalin 225 mg PO TID PRN 01/07/20 Albuterol Sulfate Inhaler - [Ventolin Hfa Inhaler -] 2 inh PO Q4H PRN 02/20/20 Gabapentin 100 mg PO TID 02/20/20 Hydrocortisone 2.5% Topical Cr [Anusol-Hc -] TP BID 02/20/20 Tamsulosin HCl 0.4 mg PO DAILY 02/20/20 Tiotropium [place] [Spiriva Respimat] 2 inh PO DAILY 02/20/20 Review of Systems - Review of Systems Constitutional: reports: Malaise, Weakness. denies: Chills, Fever, Night Sweats, Unintentional Wgt. Loss Eyes: reports: No Symptoms HENT: reports: No Symptoms Neck: reports: No Symptoms Cardiovascular: reports: Edema, Shortness of Breath. denies: Chest Pain, Palpitations Respiratory: reports: Cough, SOB, SOB on Exertion. denies: Hemoptysis, Orthopnea, PND, Snoring, Wheezing Gastrointestinal: reports: No Symptoms Genitourinary: reports: No Symptoms Breasts: reports: No Symptoms Reported Musculoskeletal: reports: Back Pain Integumentary: reports: No Symptoms Neurological: reports: No Symptoms Endocrine: reports: No Symptoms Hematology/Lymphatic: reports: No Symptoms Psychiatric: reports: No Symptoms Physical Exam Vital Sings: Vital Signs Temperature 98.2 F 02/20/20 08:17 Pulse Rate 88 02/20/20 08:17 Respiratory Rate 22 H 02/20/20 08:17 Blood Pressure 147/75 02/20/20 08:17 O2 Sat by Pulse Oximetry (%) 91 L 02/20/20 08:17 Constitutional: Yes: No Distress, Thin Eyes: Yes: Conjunctiva Clear, EOM Intact HENT: Yes: Atraumatic, Normocephalic Neck: Yes: Supple, Trachea Midline Cardiovascular: Yes: Regular Rate and Rhythm Respiratory: Yes: Cough, Diminished, On Nasal O2, Rhonchi, SOB, SOB on Exertion, Wheezes. No: Accessory Muscle Use, Rales, Stridor, Tachypnea ...Inspection: Yes: WNL ...Clubbing: No Gastrointestinal: Yes: Normal Bowel Sounds, Soft Renal/: Yes: WNL Musculoskeletal: Yes: WNL Extremities: Yes: WNL Edema: No Peripheral Pulses WNL: Yes Integumentary: Yes: WNL Neurological: Yes: WNL, Alert, Oriented ...Motor Strength: WNL Psychiatric: Yes: WNL, Alert, Oriented Labs: CBC, BMP 02/20/20 05:15 02/20/20 05:15 Imaging - Results Chest X-ray: Report Reviewed, Image Reviewed Cat Scan: Report Reviewed, Image Reviewed Problem List - Problems (1) Acute exacerbation of chronic obstructive pulmonary disease (COPD) Code(s): J44.1 - CHRONIC OBSTRUCTIVE PULMONARY DISEASE W (ACUTE) EXACERBATION (2) Acute bronchitis Code(s): J20.9 - ACUTE BRONCHITIS, UNSPECIFIED (3) COPD (chronic obstructive pulmonary disease) Code(s): J44.9 - CHRONIC OBSTRUCTIVE PULMONARY DISEASE, UNSPECIFIED (4) Mediastinal adenopathy Code(s): R59.0 - LOCALIZED ENLARGED LYMPH NODES (5) Dyspnea Code(s): R06.00 - DYSPNEA, UNSPECIFIED (6) Atelectasis Code(s): J98.11 - ATELECTASIS Assessment/Plan IMP: Changes on CT chronic in nature : Do not clinically/radiographically suspect acute infectious process Non-specific adenopathy likely due to chronic illicit substance exposure PLAN: Medrol BD TX Supplemental O2 as needed Monitor off ABX for now No smoking illicit substances counseled Outpatient PFTs once stable Although non-specific, can follow adenopathy as an outpatient Will follow Thank you. Dr Gordillo
[2020-02-20] MEDS: FUROSEMIDE 40 MG/4 ML INJECTABLE VIAL IVPUSH SCH (13:31)
--- NOTE | 2020-02-20 14:08 | CON.ID ---
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 No: Asthma, Cancer, Pulmonary Embolus, Pulmonary Fibrosis, Sleep Apnea Psych: Yes: Anxiety - Past Surgical History Past Surgical History: Yes: None - Alcohol/Substance Use Hx Alcohol Use: No - Smoking History Smoking history: Current every day smoker Have you smoked in the past 12 months: No Aproximately how many cigarettes per day: 20 If you are a former smoker, when did you quit?: was offered help last admission; refused - Social History Usual Living Arrangement: With Spouse Home Medications - Allergies Allergies/Adverse Reactions: Allergies Allergy/AdvReac Type Severity Reaction Status Date / Time No Known Allergies Allergy Verified 02/19/20 14:24 - Home Medications Home Medications: Ambulatory Orders Morphine Sulfate [Morphine Sulfate ER] 30 mg PO BID 09/12/19 oxyCODONE HCL [Oxycodone HCl] 30 mg PO Q6H PRN 09/12/19 Pregabalin 225 mg PO TID PRN 01/07/20 Gabapentin 100 mg PO TID 02/20/20 Tamsulosin HCl 0.4 mg PO DAILY 02/20/20 Albuterol 2.5/Ipratropium 0.5 [Duoneb -] 1 amp NEB BID PRN #1 amp 02/21/20 Albuterol Sulfate Inhaler - [Ventolin HFA Inhaler -] 2 puff IH Q4H PRN #1 inhaler 02/21/20 Prednisone See Taper PO DAILY #30 tablet 02/21/20 Tiotropium [place] [Spiriva Respimat] 2 inh PO DAILY #1 inhaler 02/21/20 Physical Exam Vital Signs: Vital Signs Temperature 98.2 F 02/20/20 08:17 Pulse Rate 88 02/20/20 08:17 Respiratory Rate 22 H 02/20/20 08:17 Blood Pressure 147/75 02/20/20 08:17 O2 Sat by Pulse Oximetry (%) 91 L 02/20/20 08:17 Labs: CBC, BMP 02/20/20 05:15 02/20/20 05:15 Problem List - Problems (1) Acute exacerbation of chronic obstructive pulmonary disease (COPD) Code(s): J44.1 - CHRONIC OBSTRUCTIVE PULMONARY DISEASE W (ACUTE) EXACERBATION (2) CHF (congestive heart failure) Code(s): I50.9 - HEART FAILURE, UNSPECIFIED Assessment/Plan doubt pneumonia- chest ct findings appear similar to prior ct scans this year await covid 19 pcr can observe off antiibotics more c/w copd/chf
--- NOTE | 2020-02-20 15:18 | ECHO ---
Name: JANUARY PAN Exam:Adult Echocardiogram Study Date: 02/20/2020 10:57 AM Age: 59 yrs Reason For Study: LV Function Height: 72 in Weight: 200 lb BSA: 2.1 m2 MMode/2D Measurements & Calculations IVSd: 0.90 cm Ao root diam: 3.4 cm LVIDd: 4.5 cm LA dimension: 3.2 cm LVIDs: 3.3 cm LVPWd: 0.92 cm EDV(Teich): 94.0 ml LVOT diam: 2.0 cm ESV(Teich): 44.6 ml LAV (MOD-bp): 73.5 ml Doppler Measurements & Calculations MV E max zhen: 96.8 cm/sec Ao V2 max: 97.7 cm/sec MV A max zhen: 105.6 cm/sec Ao max P.8 mmHg MV E/A: 0.92 MV dec time: 0.18 sec ASPEN(V,D): 2.6 cm2 LV V1 max P.8 mmHg PA V2 max: 97.7 cm/sec LV V1 max: 83.1 cm/sec PA max P.8 mmHg Med Peak E' Zhen: 5.3 cm/sec PI Vmax: 67.9 cm/sec Med E/e': 18.2 Lat Peak E' Zhen: 11.6 cm/sec Lat E/e': 8.3 Procedure A complete two-dimensional transthoracic echocardiogram was performed (2D, M-mode, Doppler and color flow Doppler). Technically limited study. Left Ventricle The left ventricle is normal in size. Left ventricular systolic function is low normal. Ejection Frac tion = 50-55%. No regional wall motion abnormalities noted. Right Ventricle The right ventricle is mildly dilated. The right ventricular systolic function is moderately reduced. Atria The left atrial size is normal. Right atrial size is normal. Mitral Valve The mitral valve is normal in structure and function. There is no mitral regurgitation noted. Tricuspid Valve The tricuspid valve is normal in structure and function. No tricuspid regurgitation. Aortic Valve There is mild aortic sclerosis.;. No aortic regurgitation is present. Pulmonic Valve The pulmonic valve is not well visualized. Great Vessels The aortic root is normal size. Pericardium/Pleura There is no pericardial effusion. Interpretation Summary Technically limited study The left ventricle is normal in size. Left ventricular systolic function is low normal. No regional wall motion abnormalities noted. Ejection Fraction = 50-55%. The right ventricle is mildly dilated. The right ventricular systolic function is moderately reduced. There is mild aortic sclerosis. No significant valvular regurgitations There is no pericardial effusion. Jim Ambrose MD 02/20/2020 03:17 PM
--- NOTE | 2020-02-20 16:10 | PN ---
Physical Exam: SUBJECTIVE: Patient seen and examined at bedside. Reports 2 weeks of SOB on exertion, uses O2 at home. No acute events overnight. recently started to smoke again, 1-2 PPD OBJECTIVE: Vital Signs Period Temp Pulse Resp BP Sys/Nichols Pulse Ox Last 24 Hr 97.8 F-99.2 F 84-89 16-22 125-150/51-75 91-100 GENERAL: The patient is awake, alert, and fully oriented, in no acute distress. HEAD: Normal with no signs of trauma. EYES: PERRL, extraocular movements intact, sclera anicteric, conjunctiva clear. ENT: Ears normal, nares patent, oropharynx clear without exudates, moist mucous membranes. NECK: Trachea midline, full range of motion, supple. LUNGS: Breath sounds equal, clear to auscultation bilaterally. Diffuse Expiratory wheezes in all lung chowdhury with bibasilar crackles, no accessory muscle use. HEART: Regular rate and rhythm, S1, S2 without murmur, rub or gallop. ABDOMEN: Soft, nontender, nondistended, normoactive bowel sounds, no guarding, no rebound EXTREMITIES: 2+ pulses, warm, well-perfused, no edema. NEUROLOGICAL: Cranial nerves II through XII grossly intact. Normal speech, gait not observed. PSYCH: Normal mood, normal affect. SKIN: Warm, dry, normal turgor, no rashes or lesions noted Laboratory Results - last 24 hr 02/19/20 02/19/20 02/19/20 14:43 15:00 17:45 WBC RBC Hgb Hct MCV MCH MCHC RDW Plt Count MPV Absolute Neuts (auto) Neutrophils % Lymphocytes % Monocytes % Eosinophils % Basophils % Nucleated RBC % D-Dimer Sodium 136 Potassium 6.0 H Chloride 95 L Carbon Dioxide 39 H Anion Gap 3 L BUN 9.6 Creatinine 0.6 Est GFR (CKD-EPI)AfAm 125.77 Est GFR (CKD-EPI)NonAf 108.52 POC Glucometer 40 Random Glucose 95 Calcium 8.5 Phosphorus Magnesium Ferritin Total Bilirubin 0.4 AST 18 ALT 13 Alkaline Phosphatase 97 LD Total Creatine Kinase 44 Troponin I < 0.02 C-Reactive Protein B-Natriuretic Peptide 2793.9 H Total Protein 7.2 Albumin 2.7 L COVID-19 (DREW) Not detected 02/19/20 02/19/20 02/20/20 18:34 18:40 03:21 WBC RBC Hgb Hct MCV MCH MCHC RDW Plt Count MPV Absolute Neuts (auto) Neutrophils % Lymphocytes % Monocytes % Eosinophils % Basophils % Nucleated RBC % D-Dimer 944 H Sodium 134 L Potassium 5.4 H Chloride 94 L Carbon Dioxide 38 H Anion Gap 2 L BUN 9.0 Creatinine 0.6 Est GFR (CKD-EPI)AfAm 125.77 Est GFR (CKD-EPI)NonAf 108.52 POC Glucometer 128 Random Glucose 119 H Calcium 8.5 Phosphorus Magnesium Ferritin 22.7 Total Bilirubin AST ALT Alkaline Phosphatase LD Total 241 Creatine Kinase Troponin I C-Reactive Protein 1.1 H B-Natriuretic Peptide Total Protein Albumin COVID-19 (DREW) 02/20/20 02/20/20 02/20/20 05:05 05:15 05:15 WBC 6.2 RBC 4.74 Hgb 10.7 L Hct 35.5 MCV 75.0 L MCH 22.7 L MCHC 30.2 L RDW 20.8 H Plt Count 323 MPV 7.4 L Absolute Neuts (auto) 3.6 Neutrophils % 57.1 Lymphocytes % 26.6 D Monocytes % 11.8 H Eosinophils % 2.3 Basophils % 2.2 H Nucleated RBC % 0 D-Dimer Sodium 139 Potassium 4.4 Chloride 95 L Carbon Dioxide 44 H Anion Gap 0 L BUN 6.8 L Creatinine 0.5 L Est GFR (CKD-EPI)AfAm 135.56 Est GFR (CKD-EPI)NonAf 116.96 POC Glucometer 91 Random Glucose 75 Calcium 8.5 Phosphorus 4.8 Magnesium 2.0 Ferritin Total Bilirubin 0.4 AST 13 L ALT 10 L Alkaline Phosphatase 83 LD Total Creatine Kinase Troponin I C-Reactive Protein B-Natriuretic Peptide Total Protein 6.3 L Albumin 2.4 L COVID-19 (DREW) 02/20/20 11:14 WBC RBC Hgb Hct MCV MCH MCHC RDW Plt Count MPV Absolute Neuts (auto) Neutrophils % Lymphocytes % Monocytes % Eosinophils % Basophils % Nucleated RBC % D-Dimer Sodium Potassium Chloride Carbon Dioxide Anion Gap BUN Creatinine Est GFR (CKD-EPI)AfAm Est GFR (CKD-EPI)NonAf POC Glucometer 137 Random Glucose Calcium Phosphorus Magnesium Ferritin Total Bilirubin AST ALT Alkaline Phosphatase LD Total Creatine Kinase Troponin I C-Reactive Protein B-Natriuretic Peptide Total Protein Albumin COVID-19 (DREW) Active Medications Generic Name Dose Route Start Last Admin Trade Name Freq PRN Reason Stop Dose Admin Albuterol Sulfate 2 puff 02/19/20 22:23 Ventolin Hfa Inhaler - IH Q4H PRN SHORT OF BREATH/WHEEZING Ascorbic Acid 500 mg 02/20/20 10:00 02/20/20 09:28 Vitamin C - PO 500 mg BID FLAKITA Administration Cholecalciferol 400 unit 02/20/20 10:00 02/20/20 09:28 Vitamin D3 - PO 400 unit DAILY FLAKITA Administration Dextrose 25 gm 02/19/20 17:46 D50w (Vial) - IVPUSH PRN PRN HYPOGLYCEMIA Enoxaparin Sodium 40 mg 02/20/20 10:00 02/20/20 09:49 Lovenox - SQ 40 mg DAILY FLAKITA Administration Furosemide 40 mg 02/20/20 14:00 02/20/20 13:31 Lasix Injection - IVPUSH 40 mg BIDLASIX FLAKITA Administration Insulin Aspart 1 vial 02/20/20 07:00 02/20/20 11:15 Novolog Vial Sliding Scale - SQ Not Given ACHS [facility] Protocol Methylprednisolone Sodium Succinate 40 mg 02/20/20 10:00 02/20/20 09:49 Solu-Medrol - IVPUSH 40 mg Q8H-IV FLAKITA Administration Zinc Sulfate 220 mg 02/20/20 10:00 02/20/20 09:28 Orazinc - PO 220 mg BID FLAKITA Administration ASSESSMENT/PLAN: 59M with a PMH of Opiate Overdose, COPD on 4L home O2, CHF (grade II diastolic dysfunction, EF55%), multiple admissions (12/28 and 09/2019) for AMS and acute respiratory failure likely 2/2 opioid overdose, presents with 2 weeks of worsening SOB, admitted for SOB likely 2/2 COPD exacerbation #COPD exacerbation - CTA: No PE / non-specific mildly enlarged mediastinal and hilar adenopathy / mild choronic parenchymal changes. - Pulmonary Dr. Gordillo following CT changes likely Chronic, No acute infectious process Outpatient PFTs adenopathy f/u as outpatient - ID Dr. cullen, following - Continue with supplemental O2 as needed - Continue with Solumedrol 40mg IV Q8H - Ventolin Inhaler Q4H PRN #Hx of CHF - echo 09/2019: EF 55% Severly dilated Right ventricle with moderate RV hypokinesis - echo 02/19: EF 50-55% Right ventricle midly dilated, right ventricular systolic function mod reduced - Cardiology, Dr. Lieberman following No signs of acute CHF exacerbation or acs D/c Tele #Hx of Opioid abuse - Home meds: Oxycodone 30mg PO Q6H PRN and Morphine 30mg BID - Patient c/o of b/l neuropathic leg pain: ordered Morphine 30mg PO and Oxycodone 30 mg PO once Continued Home med: Gabapentin 100mg TID FEN - No standing fluids - will continue to monitor electrolytes - diabetic diet DVT prophylaxis - Lovenox 40 mg SQ Dispo: - Will continue to monitor in [place] Visit type - Emergency Visit Emergency Visit: Yes ED Registration Date: 02/19/20 Care time: The patient presented to the Emergency Department on the above date and was hospitalized for further evaluation of their emergent condition. - New Patient This patient is new to me today: No - Critical Care Critical Care patient: No - Discharge Referral Referred to [facility] Med P.C.: No ATTENDING PHYSICIAN STATEMENT I saw and evaluated the patient. I reviewed the resident's note and discussed the case with the resident. I agree with the resident's findings and plan as documented. SUBJECTIVE: OBJECTIVE: ASSESSMENT AND PLAN:
[2020-02-20] MEDS ORDERED: PATIENT'S OWN MEDICATION (NON-FORMULARY) (Oxycodone Hcl [Oxycodone Hcl] 30 MG) PO PRN ×2 (16:45→17:24)
[2020-02-20] MEDS ORDERED: PREGABALIN 100 MG CAPSULE PO PRN ×2 (16:51→17:24)
[2020-02-20] MEDS ORDERED: oxyCODONE HCL 5 MG TABLET PO PRN (17:58)
[2020-02-20] MEDS: PREGABALIN 100 MG CAPSULE PO PRN (20:21)
[2020-02-20] MEDS: morphine SO4 SUSTAINED ACTING 30 MG TABLET.SA PO SCH (21:27)
[2020-02-20] MEDS ORDERED: PREGABALIN 100 MG CAPSULE PO SCH ×2 (22:00)
[2020-02-20] MEDS ORDERED: GABAPENTIN 100 MG CAPSULE PO SCH (22:00)
[2020-02-21] MEDS: methylPREDNISolone NA SUCC 40 MG/1 ML VIAL IVPUSH SCH ×2 (01:05→09:05)
[2020-02-21] MEDS: PREGABALIN 100 MG CAPSULE PO PRN (05:33)
[2020-02-21] MEDS: FUROSEMIDE 40 MG/4 ML INJECTABLE VIAL IVPUSH SCH (06:01)
[2020-02-21] MEDS: INSULIN SLIDING SCALE (NOVOLOG) 1 VIAL SQ SCH ×3 (06:10→11:04)
--- NOTE | 2020-02-21 07:13 | PN ---
Progress Note, Physician History of Present Illness: PULMONARY ALERT,COMFORTABLE,SOB IMPROVING,-CP - Current Medication List Current Medications: Active Medications Albuterol Sulfate (Ventolin Hfa Inhaler -) 2 puff IH Q4H PRN PRN Reason: SHORT OF BREATH/WHEEZING Ascorbic Acid (Vitamin C -) 500 mg PO BID [facility] Last Admin: 02/20/20 21:28 Dose: 500 mg Documented by: Cholecalciferol (Vitamin D3 -) 400 unit PO DAILY [facility] Last Admin: 02/20/20 09:28 Dose: 400 unit Documented by: Dextrose (D50w (Vial) -) 25 gm IVPUSH PRN PRN PRN Reason: HYPOGLYCEMIA Enoxaparin Sodium (Lovenox -) 40 mg SQ DAILY [facility] Last Admin: 02/20/20 09:49 Dose: 40 mg Documented by: Furosemide (Lasix Injection -) 40 mg IVPUSH BIDLASIX [facility] Last Admin: 02/21/20 06:01 Dose: 40 mg Documented by: Insulin Aspart (Novolog Vial Sliding Scale -) 1 vial SQ [facility]; Protocol Last Admin: 02/21/20 06:10 Dose: 8 units Documented by: Methylprednisolone Sodium Succinate (Solu-Medrol -) 40 mg IVPUSH Q8H-IV [facility] Last Admin: 02/21/20 01:05 Dose: 40 mg Documented by: Morphine Sulfate (Ms Contin -) 30 mg PO BID [facility] Last Admin: 02/20/20 21:27 Dose: 30 mg Documented by: Oxycodone HCl (Roxicodone -) 10 mg PO Q6H PRN PRN Reason: PAIN LEVEL 7 - 10 Last Admin: 02/21/20 01:04 Dose: 10 mg Documented by: Pregabalin (Lyrica -) 200 mg PO Q8H PRN PRN Reason: PAIN LEVEL 4 - 6 Last Admin: 02/21/20 05:33 Dose: 200 mg Documented by: Zinc Sulfate (Orazinc -) 220 mg PO BID [facility] Last Admin: 02/20/20 21:27 Dose: 220 mg Documented by: - Objective Vital Signs: Vital Signs Temperature 97.5 F L 02/21/20 06:00 Pulse Rate 89 02/21/20 06:00 Respiratory Rate 22 H 02/21/20 06:00 Blood Pressure 132/65 02/21/20 06:00 O2 Sat by Pulse Oximetry (%) 94 L 02/21/20 06:00 Constitutional: Yes: Well Nourished, Calm Eyes: Yes: WNL HENT: Yes: WNL Neck: Yes: WNL Cardiovascular: Yes: Regular Rate and Rhythm, S1, S2 Respiratory: Yes: Wheezes (FEW SCATTERED ANITHA WHEEZES) Gastrointestinal: Yes: Normal Bowel Sounds, Soft Extremities: Yes: WNL Edema: No Problem List - Problems (1) Acute on chronic respiratory failure with hypoxia and hypercapnia Code(s): J96.21 - ACUTE AND CHRONIC RESPIRATORY FAILURE WITH HYPOXIA; J96.22 - ACUTE AND CHRONIC RESPIRATORY FAILURE WITH HYPERCAPNIA Assessment/Plan Problem List - Problems (1) Acute exacerbation of chronic obstructive pulmonary disease (COPD) Code(s): J44.1 - CHRONIC OBSTRUCTIVE PULMONARY DISEASE W (ACUTE) EXACERBATION (2) Acute bronchitis Code(s): J20.9 - ACUTE BRONCHITIS, UNSPECIFIED (3) COPD (chronic obstructive pulmonary disease) Code(s): J44.9 - CHRONIC OBSTRUCTIVE PULMONARY DISEASE, UNSPECIFIED (4) Mediastinal adenopathy Code(s): R59.0 - LOCALIZED ENLARGED LYMPH NODES (5) Dyspnea Code(s): R06.00 - DYSPNEA, UNSPECIFIED (6) Atelectasis Code(s): J98.11 - ATELECTASIS 7 ACUTE ON CHRONIC HYPOXEMIC/HYPERCAPNEIC RESPIRATORY FAILURE Assessment/Plan IMP: Changes on CT chronic in nature : Do not clinically/radiographically suspect acute infectious process Non-specific adenopathy likely due to chronic illicit substance exposure PLAN: Medrol taper BD TX Supplemental O2 as needed Monitor off ABX for now No smoking illicit substances counseled Outpatient PFTs once stable Although non-specific, can follow adenopathy as an outpatient DR VILLARREAL
[2020-02-21 07:15] LABS: BASO % 0.2 % (0-2.0); HEMATOCRIT 34.9 % (35.4-49); HEMOGLOBIN 10.7 GM/dL (11.7-16.9); LYMPH % 8.7 % (8-40); MCH 23.5 pg (25.7-33.7); MCHC 30.8 g/dl (32.0-35.9); MEAN CELL VOLUME 76.3 fl (80-96); NEUT % 90.1 % (42.8-82.8); PLATELET COUNT 319 K/MM3 (134-434); RBC 4.58 M/mm3 (4.00-5.60); RDW 19.9 % (11.9-15.9); WHITE BLOOD COUNT 6.2 K/mm3 (4.0-10.0)
[2020-02-21 07:38] LABS: ALBUMIN 2.5 g/dl (3.4-5.0); BILIRUBIN,TOTAL 0.4 mg/dL (0.2-1); CALCIUM 7.8 mg/dL (8.5-10.1); CREATININE 0.9 mg/dL (0.55-1.3); POTASSIUM 5.3 mmol/L (3.5-5.1); TOT PROT 6.6 g/dl (6.4-8.2)
[2020-02-21 08:11] VITALS: BP 138/72; PULSE 91; TEMP 97.8
--- NOTE | 2020-02-21 08:38 | PN ---
Teaching Attending Note Name of Resident: Nate Gamboa ATTENDING PHYSICIAN STATEMENT I saw and evaluated the patient. I reviewed the resident's note and discussed the case with the resident. I agree with the resident's findings and plan as documented. SUBJECTIVE: patient feels well, wants to go home OBJECTIVE: Vital Signs Period Temp Pulse Resp BP Sys/Nichols Pulse Ox Last 24 Hr 97.5 F-97.9 F 88-92 20-22 118-145/64-74 91-94 GENERAL: Awake, alert, in no acute distress. HEAD: Normal with no signs of trauma. EYES: Pupils equal, round and reactive to light, extraocular movements intact, sclera anicteric, conjunctiva clear. EARS, NOSE, THROAT: Ears normal, nares patent, Moist mucous membranes. NECK: Normal range of motion, No JVD, LUNGS: Breath sounds equal,faint crackles at bases, respiratory wheeze noted HEART: Regular rate and rhythm, normal S1 and S2 without murmur, rub or gallop. ABDOMEN: Soft, nontender, not distended, normoactive bowel sounds, no guarding, no rebound, MUSCULOSKELETAL: Normal range of motion at all joints. No bony deformities or tenderness. No CVA tenderness. EXTREMITIES: 2+ pulses, warm, well-perfused. No calf tenderness. No peripheral edema. NEUROLOGICAL: Cranial nerves II-XII intact. Normal speech. PSYCHIATRIC: Cooperative. Good eye contact. Appropriate mood and affect. SKIN: Warm, dry, normal turgor, no rashes or lesions noted. ASSESSMENT AND PLAN: 59 y/o M with Hx of Opiate overdose, COPD, Diastolic HF, Polysubstance abuse who presents with progressive shortness of breath Shortness of breath: due to copd exacerbation Now resolved Plan to discharge on steroid taper Refill spiriva Albuterol rescue inhaler, Currently off all O2 COVID Negative euvolemic on exam PPx Lovenox Discharge home today
[2020-02-21] MEDS: ASCORBIC ACID 500 MG TABLET (FP) PO SCH (09:05)
[2020-02-21] MEDS: morphine SO4 SUSTAINED ACTING 30 MG TABLET.SA PO SCH (09:05)
[2020-02-21] MEDS: ZINC SULFATE 220 MG CAPSULE (FP) PO SCH (09:05)
[2020-02-21] MEDS: ENOXAPARIN NA (PORCINE) 40 MG/0.4 ML DISP.SYRIN SQ SCH (09:05)
[2020-02-21] MEDS: CHOLECALCIFEROL (VIT D3) 400 UNIT (10 MCG) TABLET PO SCH (09:05)
[2020-02-21] MEDS ORDERED: methylPREDNISolone NA SUCC 40 MG/1 ML VIAL IVPUSH SCH (10:45)
--- NOTE | 2020-02-21 11:46 | DS ---
Physical Exam: SUBJECTIVE: Patient seen and examined at bedside, reports he feels better and wants to go home. OBJECTIVE: Vital Signs Period Temp Pulse Resp BP Sys/Nichols Pulse Ox Last 24 Hr 97.5 F-97.9 F 88-92 20-22 118-145/64-74 91-94 PHYSICAL EXAM GENERAL: The patient is awake, alert, and fully oriented, in no acute distress. HEAD: Normal with no signs of trauma. EYES: PERRL, extraocular movements intact, sclera anicteric, conjunctiva clear. ENT: Ears normal, nares patent, oropharynx clear without exudates, moist mucous membranes. NECK: Trachea midline, full range of motion, supple. LUNGS: Breath sounds decreased, equal, clear to auscultation bilaterally. bibasilar crackles, no accessory muscle use. HEART: Regular rate and rhythm, S1, S2 without murmur, rub or gallop. ABDOMEN: Soft, nontender, nondistended, normoactive bowel sounds, no guarding, no rebound EXTREMITIES: 2+ pulses, warm, well-perfused, no edema. NEUROLOGICAL: Cranial nerves II through XII grossly intact. Normal speech, gait not observed. PSYCH: Normal mood, normal affect. SKIN: Warm, dry, normal turgor, no rashes or lesions noted LABS Laboratory Results - last 24 hr 02/19/20 02/20/20 02/20/20 15:00 16:34 21:31 WBC RBC Hgb Hct MCV MCH MCHC RDW Plt Count MPV Absolute Neuts (auto) Neutrophils % Lymphocytes % Monocytes % Eosinophils % Basophils % Nucleated RBC % Sodium Potassium Chloride Carbon Dioxide Anion Gap BUN Creatinine Est GFR (CKD-EPI)AfAm Est GFR (CKD-EPI)NonAf POC Glucometer 393 244 Random Glucose Calcium Phosphorus Magnesium Total Bilirubin AST ALT Alkaline Phosphatase Total Protein Albumin COVID-19 (DREW) Not detected 02/21/20 02/21/20 02/21/20 05:35 05:35 05:35 WBC 6.2 RBC 4.58 Hgb 10.7 L Hct 34.9 L MCV 76.3 L MCH 23.5 L MCHC 30.8 L RDW 19.9 H Plt Count 319 MPV 8.0 Absolute Neuts (auto) 5.6 Neutrophils % 90.1 H Lymphocytes % 8.7 D Monocytes % 1.0 L D Eosinophils % 0.0 D Basophils % 0.2 Nucleated RBC % 0 Sodium 133 L Potassium 5.3 H Chloride 89 L Carbon Dioxide 39 H Anion Gap 5 L BUN 20.0 H Creatinine 0.9 Est GFR (CKD-EPI)AfAm 106.46 Est GFR (CKD-EPI)NonAf 91.86 POC Glucometer 302 Random Glucose 284 H Calcium 7.8 L Phosphorus 3.0 Magnesium 2.0 Total Bilirubin 0.4 AST 12 L ALT 11 L Alkaline Phosphatase 84 Total Protein 6.6 Albumin 2.5 L COVID-19 (DREW) 02/21/20 11:03 WBC RBC Hgb Hct MCV MCH MCHC RDW Plt Count MPV Absolute Neuts (auto) Neutrophils % Lymphocytes % Monocytes % Eosinophils % Basophils % Nucleated RBC % Sodium Potassium Chloride Carbon Dioxide Anion Gap BUN Creatinine Est GFR (CKD-EPI)AfAm Est GFR (CKD-EPI)NonAf POC Glucometer 200 Random Glucose Calcium Phosphorus Magnesium Total Bilirubin AST ALT Alkaline Phosphatase Total Protein Albumin COVID-19 (DREW) HOSPITAL COURSE: Date of Admission:02/19/20 59M with a PMH of Opiate Overdose, COPD on 4L home O2, CHF (grade II diastolic dysfunction, EF55%), multiple admissions (12/28 and 09/2019) for AMS and acute respiratory failure likely 2/2 opioid overdose, presents with 2 weeks of worsening SOB, admitted for SOB likely 2/2 COPD exacerbation. CTA revealed No PE / non-specific mildly enlarged mediastinal and hilar adenopathy / mild choronic parenchymal changes. Pulmonary Dr. Gordillo was consulted. CT changes likely Chronic, No acute infectious process. Outpatient PFTs. Hilar adenopathy f/u as outpatient. Hx of CHF. echo 09/2019 showed EF 55% Severly dilated Right ventricle with moderate RV hypokinesis. Repeat echo 02/19 revealed EF 50-55% Right ventricle midly dilated, right ventricular systolic function mod reduced. Cardiology, Dr. Lieberman consulted. No signs of acute CHF exacerbation or acs Patient is clinically stable for discharge and he wishes to go home, he is discharged with the following instructions, referrals and prescriptions Date of Discharge: 02/21/20 Minutes to complete discharge: 36 Discharge Summary Problems reviewed: Yes Reason For Visit: ACUTE DECOMPENSATED HEART FAILURE,HYPERKALEMIA Current Active Problems COPD (chronic obstructive pulmonary disease) (Chronic) Mediastinal adenopathy (Chronic) Condition: Improved - Instructions Diet, Activity, Other Instructions: YOUR VISIT You came to the hospital because you were experiencing difficulty breathing. You were admitted to the hospital for care of these symptoms and were treated for acute exacerbation of your chronic pulmonary disease. Your symptoms were most likely brought on by your recent increase in smoking. You are now stable and may return home. CT imaging of your chest revealed lymph node swelling in your lungs, likely due to chronic disease process. You will need to follow up with your pulmonary doctor outpatient for further evaluation of your lungs. MEDICATIONS Please continue to take your home medications as prescribed. A refill has been provided: - Spiriva inhaler 2 inhales once daily You have *NEW* medications. - Duoneb Nebulizer 1 amp two times a day for as needed use - Ventolin 2 puffs four times a day as needed use - Methylprednisolone Taper, Please see taper instructions for 6 days Taper instructions: Day #1 02/21, you will take 4 pills. Each are 10mg. Total dose is 40mg Day #2 02/22, you will take 4 pills. Each are 10mg. Total dose is 40mg Day #3 02/23 you will take 4pills. Each are 10mg. Total dose is 40mg Day #4 02/24, you will take 3 pills. Each are 10mg. Total dose is 30mg Day #5 02/25, you will take 3 pills. Each are 10mg. Total dose is 30mg Day #6 02/26 you will take 3pills. Each are 10mg. Total dose is 30mg Day #7 02/27, you will take 2 pills. Each are 10mg. Total dose is 20mg Day #8 02/28, you will take 2 pills. Each are 10mg. Total dose is 20mg Day #9 03/01 you will take 2pills. Each are 10mg. Total dose is 20mg Day #10 03/02, you will take 1 pills. Each are 10mg. Total dose is 10mg Day #11 03/03, you will take 1 pills. Each are 10mg. Total dose is 10mg Day #12 03/04 you will take 1pills. Each are 10mg. Total dose is 10mg ADDITIONAL CARE Please make an appointment to see your primary care provider, Dr. Kearney, 1 week from today for hospital course and repeat blood work Please make an appointment to see a Pulmonary, Dr. Gordillo in 1 week for further evaluation of your lungs with additional tests. IT IS VERY IMPORTANT THAT YOU STOP SMOKING. ADDITIONAL INFORMATION Please call 911 or come directly to the emergency department if you experience recurrence of the symptoms that brought you to the hospital, unusual headache, vision change, shortness of breath, chest pain, numbness, tingling, loss of alertness/awareness, loss of function, unusual bleeding or any alarming symptoms. Referrals: Eduardo Kearney MD [Primary Care Provider] - 1 Week (hospital course and repeat labs) Ferdinand Gordillo MD [Staff Physician] - 1 Week (Outpatient PFTs, b/l hilar adenopathy) Disposition: HOME - Home Medications Comprehensive Discharge Medication List: Ambulatory Orders Morphine Sulfate [Morphine Sulfate ER] 30 mg PO BID 09/12/19 oxyCODONE HCL [Oxycodone HCl] 30 mg PO Q6H PRN 09/12/19 Pregabalin 225 mg PO TID PRN 01/07/20 Gabapentin 100 mg PO TID 02/20/20 Tamsulosin HCl 0.4 mg PO DAILY 02/20/20 Albuterol 2.5/Ipratropium 0.5 [Duoneb -] 1 amp NEB BID PRN #1 amp 02/21/20 Albuterol Sulfate Inhaler - [Ventolin HFA Inhaler -] 2 puff IH Q4H PRN #1 inhaler 02/21/20 Prednisone See Taper PO DAILY #30 tablet 02/21/20 Tiotropium [place] [Spiriva Respimat] 2 inh PO DAILY #1 inhaler 02/21/20 This patient is new to me today: Yes Date on this admission: 02/26/20 Emergency Visit: No Critical Care patient: No - Discharge Referral Referred to [facility] No ATTENDING PHYSICIAN STATEMENT I saw and evaluated the patient. I reviewed the resident's note and discussed the case with the resident. I agree with the resident's findings and plan as documented. SUBJECTIVE: OBJECTIVE: ASSESSMENT AND PLAN:
--- NOTE | 2020-02-21 13:04 | PN ---
Progress Note (short form) - Note Progress Note: cc: sob hpi: no chest pain, palps, dizziness, dyspnea. wants to go home. Vital Signs Period Temp Pulse Resp BP Sys/Nichols Pulse Ox Last 24 Hr 97.5 F-97.9 F 88-92 20-22 118-145/64-74 91-94 nad no jvd rrr s1s2 no mrg bl exp wheeze, nl eff aao3 no le e/c/c abd nt nd pos bs no jaundice diaphoresis pos dp pt no carotid bruits Laboratory Last Values WBC 6.2 K/mm3 (4.0-10.0) 02/21/20 05:35 RBC 4.58 M/mm3 (4.00-5.60) 02/21/20 05:35 Hgb 10.7 GM/dL (11.7-16.9) L 02/21/20 05:35 Hct 34.9 % (35.4-49) L 02/21/20 05:35 MCV 76.3 fl (80-96) L 02/21/20 05:35 MCH 23.5 pg (25.7-33.7) L 02/21/20 05:35 MCHC 30.8 g/dl (32.0-35.9) L 02/21/20 05:35 RDW 19.9 % (11.9-15.9) H 02/21/20 05:35 Plt Count 319 K/MM3 (134-434) 02/21/20 05:35 MPV 8.0 fl (7.5-11.1) 02/21/20 05:35 Absolute Neuts (auto) 5.6 K/mm3 (1.5-8.0) 02/21/20 05:35 Neutrophils % 90.1 % (42.8-82.8) H 02/21/20 05:35 Lymphocytes % 8.7 % (8-40) D 02/21/20 05:35 Monocytes % 1.0 % (3.8-10.2) L D 02/21/20 05:35 Eosinophils % 0.0 % (0-4.5) D 02/21/20 05:35 Basophils % 0.2 % (0-2.0) 02/21/20 05:35 Nucleated RBC % 0 % (0-0) 02/21/20 05:35 Hypochromia 0 02/19/20 14:43 Platelet Estimate Normal 02/19/20 14:43 Polychromasia 0 02/19/20 14:43 Poikilocytosis 0 02/19/20 14:43 Anisocytosis 1+ 02/19/20 14:43 Microcytosis 1+ 02/19/20 14:43 Macrocytosis 0 02/19/20 14:43 D-Dimer 944 ng/ml (0-500) H 02/20/20 03:21 VBG pH 7.303 (7.310-7.410) L 02/19/20 14:43 POC VBG pCO2 73.5 mmHg (38-52) H* 02/19/20 14:43 POC VBG pO2 23.5 mmHg (28-48) L 02/19/20 14:43 VBG HCO3 35.6 mmol/L (23-29) H 02/19/20 14:43 VBG O2 Sat (Mirta) 34.1 % (70-80) L 02/19/20 14:43 VBG Base Excess 7.0 mmol/L (-2-2) H 02/19/20 14:43 Sodium 133 mmol/L (136-145) L 02/21/20 05:35 Potassium 5.3 mmol/L (3.5-5.1) H 02/21/20 05:35 Chloride 89 mmol/L (98-107) L 02/21/20 05:35 Carbon Dioxide 39 mmol/L (21-32) H 02/21/20 05:35 Anion Gap 5 MMOL/L (8-16) L 02/21/20 05:35 BUN 20.0 mg/dL (7-18) H 02/21/20 05:35 Creatinine 0.9 mg/dL (0.55-1.3) 02/21/20 05:35 Est GFR (CKD-EPI)AfAm 106.46 02/21/20 05:35 Est GFR (CKD-EPI)NonAf 91.86 02/21/20 05:35 POC Glucometer 200 UNITS (80-120) 02/21/20 11:03 Random Glucose 284 mg/dL (74-106) H 02/21/20 05:35 Calcium 7.8 mg/dL (8.5-10.1) L 02/21/20 05:35 Phosphorus 3.0 mg/dL (2.5-4.9) 02/21/20 05:35 Magnesium 2.0 mg/dL (1.8-2.4) 02/21/20 05:35 Ferritin 22.7 ng/ml (8-388) 02/19/20 18:40 Total Bilirubin 0.4 mg/dL (0.2-1) 02/21/20 05:35 AST 12 U/L (15-37) L 02/21/20 05:35 ALT 11 U/L (13-61) L 02/21/20 05:35 Alkaline Phosphatase 84 U/L (45-117) 02/21/20 05:35 LD Total 241 U/L (87-246) 02/19/20 18:40 Creatine Kinase 44 U/L (26-308) 02/19/20 14:43 Troponin I < 0.02 ng/ml (0.00-0.05) 02/19/20 14:43 C-Reactive Protein 1.1 MG/DL (0.00-0.3) H 02/19/20 18:40 B-Natriuretic Peptide 2793.9 pg/ml (5-125) H 02/19/20 14:43 Total Protein 6.6 g/dl (6.4-8.2) 02/21/20 05:35 Albumin 2.5 g/dl (3.4-5.0) L 02/21/20 05:35 COVID-19 (DREW) Not detected (Not Detected) 02/19/20 15:00 echo 09/2019: tds; nl lvef, sev rve, mod dec rv fcn, mild phtn cta chest: no pe, no chf ecg: sr nl intervals no ischemic changes a/p: 59 m hx htn, hld, dchf, copd, cocaine use here with sob. sob, acute copd, chronic diastolic chf: -no signs acute chf or acs. bnp wnl. -vol stable w/o diuretics -cont tx of copd as this seems to be etiology of current symptoms htn: -stable, monitor with steroids hld: -stable tob use, cocaine use: -cessation discussed stable for dc from cardiac perspective
== END 2020-02-21 12:00 | disposition home or self-care (01) | DRG 190 ==
LOC: JER 14:19 → JERBED 18:29 → J4W 02-20 03:55
PROVIDERS: ADMIT Internal Medicine; ATTEND Internal Medicine
DX: J44.1 Chronic obstructive pulmonary disease with (acute) exacerbation (principal); J96.01 Acute respiratory failure with hypoxia; J96.02 Acute respiratory failure with hypercapnia; E46 Unspecified protein-calorie malnutrition; I50.32 Chronic diastolic (congestive) heart failure; J98.11 Atelectasis; I11.0 Hypertensive heart disease with heart failure; J20.9 Acute bronchitis, unspecified; N40.0 Benign prostatic hyperplasia without lower urinary tract symptoms; E78.00 Pure hypercholesterolemia, unspecified; R59.0 Localized enlarged lymph nodes; E11.9 Type 2 diabetes mellitus without complications; G62.89 Other specified polyneuropathies; Z68.25 Body mass index [BMI] 25.0-25.9, adult; E88.09 Other disorders of plasma-protein metabolism, not elsewhere classified; F41.9 Anxiety disorder, unspecified; F17.210 Nicotine dependence, cigarettes, uncomplicated; F19.10 Other psychoactive substance abuse, uncomplicated; F11.10 Opioid abuse, uncomplicated; Z99.81 Dependence on supplemental oxygen
CPT/HCPCS: 36415; 71045-TC-FY; 71275-TC; 80048; 80053; 82550; 82728; 82803; 82962; 83615; 83735; 83880; 84100; 84484; 85025; 85379; 86140; 93005; 93010; 93306-TC; 93971-TC; 99285-25; C9803; Q9967; U0003